=== PATIENT | male | born 1960 | race Caucasian/White ===

== ENCOUNTER 2017-01-31 10:05 | Inpatient (IN) | payer OTHER ==
[~2017-01-31] VITALS: Ht 167.6 cm; Wt 58.7 kg
[~2017-01-31 10:05] MED LIST: MAG355OR15 PO; ONDA4TAB35 PO
[2017-01-31] MEDS ORDERED: LACTATED RINGER'S 1,000 ML IV STA (10:21)
[2017-01-31] MEDS ORDERED: SOD CHLORIDE 0.9% 2,000 ML IV STA (10:21)
[2017-01-31 10:55] LABS: ADD SCAN DIFF NO
[2017-01-31] MEDS ORDERED: ONDANSETRON 4 MG INJ IV STA (11:01)
[2017-01-31] MEDS ORDERED: morphine 4 MG/ML VIAL IV STA (11:01)
[2017-01-31 11:04] LABS: ABNORMAL IP MESSAGE 1; BASOPHIL # 0.1 10^3/ul (0.0-0.1); EOSINOPHILS # 0.1 10^3/ul (0.0-0.5); EOSINOPHILS % 2.4 % (0.0-7.0); HEMATOCRIT 30.8 % (42.0-52.0); HEMOGLOBIN 9.7 g/dl (14.0-18.0); LYMPHOCYTES # 1.5 10^3/ul (0.8-2.9); LYMPHOCYTES % 29.9 % (15.0-51.0); MEAN CORPUSCULAR HEMOGLOBIN 25.4 pg (29.0-33.0); MEAN CORPUSCULAR HGB CONC 31.5 g/dl (32.0-37.0); MEAN CORPUSCULAR VOLUME 80.6 fl (82.0-101.0); MEAN PLATELET VOLUME 9.6 fl (7.4-10.4); MONOCYTE # 0.4 10^3/ul (0.3-0.9); NEUTROPHIL # 2.8 10^3/ul (1.6-7.5); NEUTROPHILS % 57.3 % (39.0-77.0); PLATELET COUNT 97 10^3/UL (140-415); RED BLOOD COUNT 3.82 10^6/ul (4.70-6.10); RED CELL DISTRIBUTION WIDTH 21.9 % (11.5-14.5); WHITE BLOOD COUNT 4.9 10^3/ul (4.8-10.8)
[2017-01-31 11:26] LABS: CALCIUM 7.8 mg/dl (8.4-10.2); CREATININE 0.59 mg/dl (0.61-1.24); INR 1.26; PROTIME 15.9 Sec (12.2-14.2); PT RATIO 1.2
[2017-01-31 11:27] LABS: PARTIAL THROMBOPLASTIN TIME 29.1 Sec (25.0-35.0)
--- NOTE | 2017-01-31 11:48 | RADRPT ---
PROCEDURE: XR Chest. CLINICAL INDICATION: Chest pain TECHNIQUE: Single portable view of the chest was obtained COMPARISON: None FINDINGS: The heart is enlarged. There is elevation of the right diaphragm. There are mild bibasilar atelectatic changes. The lungs are otherwise clear. There is no pleural effusion or pneumothorax. RPTAT: AA IMPRESSION: Mild bibasilar atelectatic changes, right greater than left. Mild cardiomegaly. .Momo Guevara MD, MD Date Time Electronically viewed and signed by .Momo Guevara MD, MD on 01/31/2017 11:47 .S/
--- NOTE | 2017-01-31 12:24 | RADRPT ---
PROCEDURE: CT scan of the abdomen and pelvis without IV contrast. CLINICAL INDICATION: 56 real male with abdominal pain. TECHNIQUE: Thin section axial, coronal and sagittal images were performed through the abdomen and pelvis without contrast. Radiation Dose: CTDI: A 0.4 and DLP: 556 One or more of the following dose reduction techniques were used: - Automated exposure control. - Adjustment of the mA and/or kV according to patient size. Use of iterative reconstruction technique. COMPARISON: Chest x-ray 09/21/2016 06:18 a.m. FINDINGS: Soft tissues: Normal. Lungs and pleural spaces: There is plate-like atelectasis in the right lower lobe and medial aspect of the left lower lobe. No pleural effusion is identified. Some peribronchial thickening is noted in the bronchial mederos in the medial aspect of the left lower lobe with consolidation/atelectasis in the same area. Heart: Heart is mildly enlarged. No pericardial effusion is identified. The liver, common bile duct and gallbladder: The liver has a nodular border. The liver measures 16. 9 cm AP. There is surrounding ascites. The gallbladder is distended measuring up to 4.6 cm AP by 4 .8 cm in height by over 10.5 cm in length. A 4.4 mm calcification is noted outside of the gallbladd er in the area of Morison's pouch. This may be the result of a calcified lymph node. Gastrointestinal: The gastric wall is thickened but the stomach is incompletely distended. There is mucosal thickening of small bowel loops in the right upper abdomen. There are air-filled small bow el loops in the anterior abdomen measuring about 2.1 mm in maximal transverse diameter. There is a r ight inguinal hernia which contains fluid and fat. There is a large right scrotal hydrocele with th ickening of the right scrotal wall. Pancreas: Normal. The extrahepatic common bile duct measures about 6.6 mm. The main pancreatic brianna t is normal. Kidneys, bladder and adrenal glands : The adrenal glands are normal. There is mild hydronephrosis o f the right kidney. Left kidney is unremarkable. No obstructing ureterolith, nephrolith or bladder stone is identified. The urinary bladder is distended without evidence of bladder wall thickening. Spleen: The spleen is enlarged measuring 15 cm AP. Lymph nodes: No enlarged periportal, mesenteric, retroperitoneal, pelvic sidewall or inguinal lymph nodes are identified. There are small inguinal lymph nodes bilaterally. The largest in the left in guinal area measured 7.6 mm. Reproductive system and pelvis : The prostate gland seminal vesicles are normal. Bony elements: There are mild degenerative changes involving both hips. There are degenerative perez ges involving the left SI joint. There are degenerative changes in the articular facets at T12-L1, L1-2, L2-3, L3-4, and L4-5. There are degenerative changes in the facets at the lumbosacral junctio n. L5 is partially sacralized. Vasculature: There are vascular calcifications at the origins of the celiac artery, superior mesente derian artery and in the mid abdominal aorta. IMPRESSION: 1. There is a large right scrotal hydrocele with scrotal wall thickening. 2. There is a left inguinal hernia with pad bulging and to the left inguinal canal. 3. Hepatosplenomegaly with cirrhosis and ascites. 4. Hydrops gallbladder. 5. Mucosal thickening of the stomach and small bowel loops may be the result of hypoalbuminemia rel ated to ascites. 6. Reflex ileus. 7. Bibasilar atelectasis. 8. Mild cardiomegaly. RPTAT:AAJJ Physician Nessa Date Time Electronically viewed and signed by Physician Nessa on 01/31/2017 12:24 LIZETH/
[2017-01-31] MEDS ORDERED: FER325 PO (12:27)
[2017-01-31] MEDS ORDERED: THIA100T56 PO (12:27)
[2017-01-31] MEDS ORDERED: LANT3I SC (12:27)
[2017-01-31] MEDS ORDERED: FOLI-49 PO (12:28)
[2017-01-31] MEDS ORDERED: OMEP20CA16 PO (12:29)
[2017-01-31] MEDS ORDERED: SPIR100T PO (12:29)
[2017-01-31] MEDS ORDERED: FURO40TA4 PO (12:29)
[2017-01-31] MEDS ORDERED: METF1000 PO (12:31)
[2017-01-31] MEDS ORDERED: CHOL100062 PO (12:32)
[2017-01-31] MEDS ORDERED: PIPER-TAZO 3.375 GM IV (PMX) 100 ML IVPB ONE (13:00)
--- NOTE | 2017-01-31 13:43 | ERA ---
ER Documentation Chief Complaint Date/Time DATE: 01/31/17 TIME: 13:42 Chief Complaint PT BIBA C/O HYPERGLYCEMIA HPI Patient is a 56-year-old male with alcohol abuse who presents with abdominal pain. The patient was brought in by ambulance. He was in line to get food at a local food half-way. His sugar was elevated at 403 by paramedics. He said he is not taking his medications. He admits to drinking alcohol. He says "I am not feeling well". He complains of pain in his lower abdomen and scrotum. Upon review of old medical records this is the patient's fourth visit to the ER since 2014. He does not currently have a primary doctor. ROS All systems reviewed and are negative except as per history of present illness. Medications Home Meds Reported Medications Cholecalciferol* (Vitamin D3*) 1,000 Unit Tablet, 2000 UNIT PO DAILY, TAB 01/31/17 Metformin Hcl* (Metformin Hcl*) 1,000 Mg Tablet, 1000 MG PO WITH BREAKFAST DINNE , #30 TAB 01/31/17 Omeprazole* (Omeprazole*) 20 Mg Capsule.dr, 20 MG PO DAILY, #30 CAP 01/31/17 Furosemide* (Furosemide*) 40 Mg Tablet, 40 MG PO DAILY, TAB 01/31/17 Spironolactone* (Aldactone*) 100 Mg Tablet, 100 MG PO DAILY, #30 TAB 01/31/17 Folic Acid* (Folic Acid*) 1 Mg Tablet, 1 MG PO DAILY, TAB 01/31/17 Ferrous Sulfate* (Ferrous Sulfate*) 325 Mg Tabec, 325 MG PO DAILY, TAB 01/31/17 Thiamine* (Vitamin B-1*) 100 Mg Tablet, 100 MG PO DAILY, TAB 01/31/17 Insulin Glargine* (Lantus*) 100 Unit/Ml Soln, 0 SC QHS, #1 VIAL SLIDING SCALE NO SCALE GIVEN 01/31/17 Discontinued Scripts Mag Hydrox/Al Hydrox/Simeth (Maalox Max Strength Susp) 769 Ml Oral.susp, 769 ML PO TID Y for PAIN, #1 Prov:MYRNA MORENO MD 01/18/15 Ondansetron Hcl* (Zofran* ODT) 4 mg -ODT Tab.disper, 4 MG PO Q6 Y for NAUSEA AND /OR VOMITING, #10 TAB Prov:MYRNA MORENO MD 01/18/15 Allergies Allergies: Coded Allergies: No Known Allergy (Unverified , 01/31/17) PMhx/Soc History of Surgery: No Anesthesia Reaction: No Hx Neurological Disorder: No Hx Respiratory Disorders: No Hx Cardiac Disorders: No Hx Psychiatric Problems: No Hx Miscellaneous Medical Probl: Yes (DM) Hx Alcohol Use: No Hx Substance Use: No Hx Tobacco Use: No Smoking Status: Never smoker FmHx Family History: diabetes Physical Exam Vitals Vital Signs Date Time Temp Pulse Resp B/P Pulse Ox O2 Delivery O2 Flow Rate FiO2 01/31/17 10:19 98 16 139/97 92 Room Air 01/31/17 10:16 97.9 105 20 139/97 98 Physical Exam Const: Moderate distress Head: Atraumatic Eyes: Normal Conjunctiva ENT: Normal External Ears, Nose and Mouth. Neck: Full range of motion..~ No meningismus. Resp: Clear to auscultation bilaterally Cardio: Regular rate and rhythm, no murmurs Abd: Distended abdomen with lower abdominal pain on palpation without rebound or guarding Skin: No petechiae or rashes Back: No midline or flank tenderness Ext: No cyanosis, or edema Neur: Awake and alert : Large hernia inguinal which extends into the scrotum, no obvious signs of incarceration at this time Result Diagram: 01/31/17 1040 01/31/17 1040 Results 24 hrs Laboratory Tests Test 01/31/17 10:30 01/31/17 10:40 01/31/17 10:45 01/31/17 12:13 Bedside Glucose 306mg/dL White Blood Count 4.910^3/ul Red Blood Count 3.8210^6/ul Hemoglobin 9.7g/dl Hematocrit 30.8% Mean Corpuscular Volume 80.6fl Mean Corpuscular Hemoglobin 25.4pg Mean Corpuscular Hemoglobin Concent 31.5g/dl Red Cell Distribution Width 21.9% Platelet Count 9710^3/UL Mean Platelet Volume 9.6fl Neutrophils % 57.3% Lymphocytes % 29.9% Monocytes % 9.0% Eosinophils % 2.4% Basophils % 1.0% Nucleated Red Blood Cells % 0.0/100WBC Neutrophils # 2.810^3/ul Lymphocytes # 1.510^3/ul Monocytes # 0.410^3/ul Eosinophils # 0.110^3/ul Basophils # 0.110^3/ul Nucleated Red Blood Cells # 0.010^3/ul Prothrombin Time 15.9Sec Prothrombin Time Ratio 1.2 INR International Normalized Ratio 1.26 Activated Partial Thromboplast Time 29.1Sec Sodium Level 140mmol/L Potassium Level 4.0mmol/L Chloride Level 104mmol/L Carbon Dioxide Level 25mmol/L Anion Gap 15 Blood Urea Nitrogen 6mg/dl Creatinine 0.59mg/dl Glucose Level 310mg/dl Calcium Level 7.8mg/dl Troponin I < 0.012ng/ml Ethyl Alcohol Level 427.0mg/dl Lactic Acid Level 3.7mmol/L 4.6mmol/L Current Medications Medications (Trade) Dose Ordered Sig/Macho Route PRN Reason Start Time Stop Time Status Last Admin Dose Admin Sodium Chloride 2,000 ml @ 1,000 mls/hr Q2H STAT IV 01/31/17 10:21 01/31/17 12:20 DC 01/31/17 11:19 Lactated Ringer's (Lr) 1,000 ml @ 1,000 mls/hr Q1H STAT IV 01/31/17 10:21 01/31/17 11:20 DC 01/31/17 11:20 Morphine Sulfate (morphine) 4 mg ONCE STAT IV 01/31/17 11:01 01/31/17 11:06 DC 01/31/17 11:18 Ondansetron HCl 4 mg 4 mg ONCE STAT IV 01/31/17 11:01 01/31/17 11:06 DC 01/31/17 11:18 Piperacillin Sod/ Tazobactam Sod (Zosyn 3.375gm/ 100 ml (Pmx)) 100 ml @ 200 mls/hr ONCE ONCE IVPB 01/31/17 13:00 01/31/17 13:29 DC Ondansetron HCl (Zofran Inj) 4 mg BRIDGE ORDER PRN IV NAUSEA AND/OR VOMITING 01/31/17 14:00 02/01/17 13:59 Acetaminophen (Tylenol Tab) 650 mg ER BRIDGE PRN PO MILD PAIN/FEVER 01/31/17 14:00 02/01/17 13:59 Procedures/MDM PROCEDURE: CT scan of the abdomen and pelvis without IV contrast. CLINICAL INDICATION: 56 real male with abdominal pain. TECHNIQUE: Thin section axial, coronal and sagittal images were performed through the abdomen and pelvis without contrast. Radiation Dose: CTDI: A 0.4 and DLP: 556 One or more of the following dose reduction techniques were used: - Automated exposure control. - Adjustment of the mA and/or kV according to patient size. Use of iterative reconstruction technique. COMPARISON: Chest x-ray 09/21/2016 06:18 a.m. FINDINGS: Soft tissues: Normal. Lungs and pleural spaces: There is plate-like atelectasis in the right lower lobe and medial aspect of the left lower lobe. No pleural effusion is identified. Some peribronchial thickening is noted in the bronchial mederos in the medial aspect of the left lower lobe with consolidation/atelectasis in the same area. Heart: Heart is mildly enlarged. No pericardial effusion is identified. The liver, common bile duct and gallbladder: The liver has a nodular border. The liver measures 16.9 cm AP. There is surrounding ascites. The gallbladder is distended measuring up to 4.6 cm AP by 4.8 cm in height by over 10.5 cm in length. A 4.4 mm calcification is noted outside of the gallbladder in the area of Morison's pouch. This may be the result of a calcified lymph node. Gastrointestinal: The gastric wall is thickened but the stomach is incompletely distended. There is mucosal thickening of small bowel loops in the right upper abdomen. There are air-filled small bowel loops in the anterior abdomen measuring about 2.1 mm in maximal transverse diameter. There is a right inguinal hernia which contains fluid and fat. There is a large right scrotal hydrocele with thickening of the right scrotal wall. Pancreas: Normal. The extrahepatic common bile duct measures about 6.6 mm. The main pancreatic duct is normal. Kidneys, bladder and adrenal glands : The adrenal glands are normal. There is mild hydronephrosis of the right kidney. Left kidney is unremarkable. No obstructing ureterolith, nephrolith or bladder stone is identified. The urinary bladder is distended without evidence of bladder wall thickening. Spleen: The spleen is enlarged measuring 15 cm AP. Lymph nodes: No enlarged periportal, mesenteric, retroperitoneal, pelvic sidewall or inguinal lymph nodes are identified. There are small inguinal lymph nodes bilaterally. The largest in the left inguinal area measured 7.6 mm. Reproductive system and pelvis : The prostate gland seminal vesicles are normal. Bony elements: There are mild degenerative changes involving both hips. There are degenerative changes involving the left SI joint. There are degenerative changes in the articular facets at T12-L1, L1-2, L2-3, L3-4, and L4-5. There are degenerative changes in the facets at the lumbosacral junction. L5 is partially sacralized. Vasculature: There are vascular calcifications at the origins of the celiac artery, superior mesenteric artery and in the mid abdominal aorta. IMPRESSION: 1. There is a large right scrotal hydrocele with scrotal wall thickening. 2. There is a left inguinal hernia with pad bulging and to the left inguinal canal. 3. Hepatosplenomegaly with cirrhosis and ascites. 4. Hydrops gallbladder. 5. Mucosal thickening of the stomach and small bowel loops may be the result of hypoalbuminemia related to ascites. 6. Reflex ileus. 7. Bibasilar atelectasis. 8. Mild cardiomegaly. RPTAT:AAJJ Physician Nessa Date Time Electronically viewed and signed by Robb Lord Physician on 01/31/2017 12:24 PROCEDURE: XR Chest. CLINICAL INDICATION: Chest pain TECHNIQUE: Single portable view of the chest was obtained COMPARISON: None FINDINGS: The heart is enlarged. There is elevation of the right diaphragm. There are mild bibasilar atelectatic changes. The lungs are otherwise clear. There is no pleural effusion or pneumothorax. RPTAT: AA IMPRESSION: Mild bibasilar atelectatic changes, right greater than left. Mild cardiomegaly. .Momo Guevara MD, Date Time Electronically viewed and signed by .Momo Guevara MD, MD on 01/31/2017 11: 47 Admit MDM: Patient's infectious symptoms have not stabilized and the patient is at risk of rapid decompensation. The patient will be admitted for careful hydration, antibiotic therapy, and infectious source control. Severe Sepsis criteria: Infectious source: Possible UTI, urine not obtained as of yet End organ damage indicated by: Lactate greater than 2 Sepsis Management: Time of recognition of sepsis: Upon arrival Within 3 hours of recognition: Blood cultures x 2 before broad-spectrum antibiotics: Yes 30 ml/kg NS bolus Completed Initial lactate 3.7 Repeat lactate 4.6 Time of recognition of septic shock: 1213 Septic Shock Assessment: Any lactic acid > 4.0 yes Persistent hypotension (SBP < 90 or 40 mmHg drop, MAP < 65) despite 30 mL/kg IV fluid bolus No Volume Re-assessment for Septic Shock (post 30 ml/kg bolus): Temp 97.9, BP 139/97, HR 98, RR 16, Pox 92% Heart Regular rate & rhythm Lungs No crackles Skin Warm & dry Cap Refill Less than 2 seconds Peripheral pulses Radially present Persistent Hypotension Treatment: Comfort care No Central line Not Required Vasopressor started Not required I considered further perfusion assessment with CVP measurement, SCVO2, bedside ultrasound volume assessment, passive leg raise, trial of further fluid bolus. And proceeded with 30 ml/kg fluid bolus of NSS, broad spectrum antibiotics, and admission. The patient also has hyperglycemia but no diabetic ketoacidosis at this time. He has alcohol intoxication. He has anemia with a hemoglobin of 9.7 but does not require transfusion. Accepting Care Team Current data and ongoing care discussed. Admitting Physician: Dr. Guzmán from the panel team Insulation Machine Operator(s): Dr. Wadsworth the surgeon on-call Outstanding Data: Culture results Critical Care: Critical care time 35 minutes excluding all billable procedures Emergent fluid management while maintaining close respiratory support. Provision of immediate and broad-spectrum antibiotic therapy. Simultaneous assessment for possible sources in order to direct targeted therapy. Consideration for invasive and chemical support to prevent cardiopulmonary collapse. Departure Diagnosis: Primary Impression: Inguinal hernia Qualified Code: K40.90 - Inguinal hernia without obstruction or gangrene, recurrence not specified, unspecified laterality Additional Impressions: Alcoholic intoxication Qualified Code: F10.120 - Alcoholic intoxication, uncomplicated Septic shock Hyperglycemia Condition: TAYA Mayers MD Jan 31, 2017 13:43
[2017-01-31] MEDS ORDERED: ACETAMINOPHEN 325 MG TAB PO PRN ×2 (14:00→18:30)
[2017-01-31] MEDS ORDERED: ONDANSETRON 4 MG INJ IV PRN (14:00)
[2017-01-31 14:43] LABS: ADD UMIC YES; UR BILIRUBIN (Dip) NEGATIVE (NEGATIVE); UR BLOOD (Dip) 2+ (NEGATIVE); UR CLARITY CLEAR (CLEAR); UR COLOR LT. YELLOW (YELLOW); UR KETONES (Dip) NEGATIVE (NEGATIVE); UR LEUKOCYTE ESTERASE (Dip) NEGATIVE (NEGATIVE); UR NITRITE (Dip) NEGATIVE (NEGATIVE); UR TOTAL PROTEIN (Dip) NEGATIVE (NEGATIVE); UR UROBILINOGEN (Dip) 1.0 E.U./dL (0.1-1.0)
[2017-01-31 15:27] LABS: UR TRANSITIONAL EPI CELL FEW
[2017-01-31 17:09] VITALS: BP 142/91; RESP 22
[2017-01-31 17:15] VITALS: BP 142/91; PULSE 90; RESP 18
--- NOTE | 2017-01-31 17:38 | CONS ---
[facility]: Initial inpatient consultation DATE OF CONSULTATION: 01/31/2017 PLACE OF SERVICE: [facility] Emergency Department. ASSESSMENT AND PLAN: A very pleasant but unfortunate 56-year-old gentleman with known alcoholic cirrhosis complicated by ascites as well as 1 episode of upper gastrointestinal bleed last year. He is presenting with more issues with ascites and left inguinal hernia and scrotal hydrocele that do not contain any bowel content within them and they are essentially filled with his ascites. There is no indication for surgical intervention. He does have portal hypertension and in combination with cirrhosis and other comorbidities puts him at an extremely high risk for morbidity and mortality for any operative intervention and fortunately he does not represent any need for operative intervention at this time. I have recommended that we stabilize the patient and then get the patient connected to one of our outpatient hepatologists to try and help him manage his medical needs better in regards to his cirrhosis. I explained all this in detail with the patient as well as discussing with the team. I answered all the patient's questions to the best of my ability and he appeared to understand and agreed with the plans. With above assessment I have recommended the followin. Consider admitting the patient. 2. Medical management of alcohol related cirrhosis. 3. Consider checking for hepatitis panel. 4. Elevate scrotum. 5. Consider diuretics. 6. Consider paracentesis. 7. Please call me if any other acute surgical questions or issues. Thank you again for allowing us to participate in the care of this very pleasant gentleman and I am certain his wonderful family. If there are any questions, please feel free to contact me at [phone]. UPDATED CLINICAL SUMMARY: A very pleasant 56-year-old gentleman with known history of cirrhosis and 1 episode of gastrointestinal bleeding presenting to the emergency department at [facility] on 01/31/2017 with an enlarged groin and scrotum. COMORBIDITIES: 1. Alcoholic cirrhosis complicated by ascites and at least 1 episode of upper gastrointestinal bleeding. 2. Possible diabetes. 3. Right scrotal hydrocele with scrotal wall thickening. 4. Left inguinal hernia. 5. Hepatomegaly with cirrhosis. 6. Mild cardiomegaly. DATE OF ADMISSION: 01/31/2017 HISTORY OF PRESENT ILLNESS: The patient is a very pleasant 56-year-old gentleman whom we were kindly asked to consult regarding management of possible groin hernias. Patient reported having no major abdominal pain and he had a bowel movement today as well as flatus. He does report significant drinking and has a known problem with cirrhosis complicated by ascites as well as 1 episode of gastrointestinal bleeding that required upper endoscopy, perhaps done at [facility] about a year ago. No other issues with bleeding in the past. The patient's groin has been swollen for a number of days and he does not report any major complaints. ALLERGIES: NO KNOWN DRUG ALLERGIES. HOME MEDICATIONS: 1. Vitamin D3. 2. Ferrous sulfate. 3. Folic acid. 4. Furosemide. 5. Lantus. 6. Metformin. 7. Omeprazole. 8. Bactrim 9. Vitamin B1. SOCIAL HISTORY: The patient lives in a mcc. He reports significant amount of drinking. No major reported smoking or intravenous drug use. FAMILY HISTORY: There is no mention of major medical, surgical or oncologic problems in the family. REVIEW OF SYSTEMS: Other than the above-mentioned, there are no other pertinent positives or pertinent negatives in a complete 14-point review of systems. PHYSICAL EXAMINATION: GENERAL: The patient appears to be a very pleasant gentleman of descent, appearing stated age, lying in bed comfortably and in no acute distress. His BMI is 24.2. VITAL SIGNS: Temperature is 97.9, blood pressure 133/90, pulse 90, respiratory rate 18, pulse oximetry 92% on room air. HEENT: Normocephalic and atraumatic. Extraocular muscles and hearing are grossly intact bilaterally and symmetrically. Sclerae are nonicteric. Oral cavity is clear; oral mucosa appeared to be pink and moist. Dentition: fair to poor. NECK: Supple. There is no lymphadenopathy or JVD. There is no submental, submandibular or supraclavicular lymphadenopathy. CHEST: Rises symmetrically with each breath; patient is breathing comfortably. There are no audible wheezes, rales or rhonchi on the gross exam. HEART: Pulse is regular and palpable on the right wrist. Capillary refill was normal. Carotid pulses are palpable bilaterally and symmetrically in the neck. EXTREMITIES: Lower extremities contain no pitting edema around the ankles bilaterally and symmetrically. ABDOMEN: Soft, nondistended and nontender. There are no peritoneal signs or guarding. His groin shows a scrotum that this is extremely enlarged all filled with fluid. There is no evidence of bowel incarceration within it. The skin itself overlying the scrotum appears to be pink and viable. There is no significant tenderness in the area. SKIN: Appears to be pink and feels warm to touch. NEUROLOGIC: Awake, alert, and follows commands appropriately. LABORATORY VALUES: White blood cell count 4.9, hemoglobin 9.7, platelets 97. Electrolytes are normal. Creatinine 0.59, CO2 of 25. Lactic acid was 3.7, then 4.6 and then 3.9. INR 1.26, ethyl alcohol level was 427. Urinalysis showed no nitrite or leukocyte esterase. IMAGING: The patient had a chest x-ray that demonstrated mild bibasilar atelectatic changes right greater than left and mild cardiomegaly. The abdominal and pelvic CT scan findings were reviewed above. Note that I personally reviewed all the available and pertinent images and I agree in general with their overall reported findings. Dictated By: KIRA CONRAD/HUY Conf#: [id number] DID#: [id number] MTDD
--- NOTE | 2017-01-31 18:03 | HP ---
Date/Time of Note Date/Time of Note DATE: 01/31/17 TIME: 17:59 Assessment/Plan VTE Prophylaxis VTE Prophylaxis Intervention: SCD's Assessment/Plan Assessment/Plan 56 yo M with alcoholism DM2 admitted for abd pain in setting of hyperglycemia and alcohol intoxication. CT abdomen notable for ascities. Suspect alcoholic gastropathy as etio of abd pain though other possibilities (ie PUD) exist #lactic acidosis; Suspect combo of alcohol and mild DKA no evidence of sepsis-->UA negative, CXR without evidence of pna hold abx cont fluids #abd pain: gen surg on consult cont PPI consider GI eval in AM #RON: suspect prerenal -hydrate, hold dieretics #dm2 with hyperglycemia -IVFs, A1c, lantus, SSI #alcoholism: ativan PRN prophx: SCDs HPI/ROS Admit Date/Time Admit Date/Time Jan 31, 2017 at 13:39 Hx of Present Illness 56 yo M with pmhx DM2, EtOH abuse, HTN, likely chronic liver disease presents with 1 day of abd pain. States it's in his bl LQs and has been occurring intermittently for some time. Pain is quite severe. Hasn't taken his insulin in 2 days (is on 15 units of lantus usually). Also fo note, pt's last drink was this AM-->2 beers and some additional alcohol. No fevers, chills, nausea, vomiting, constipation or diarrhea. ROS 10pROS neg as per HPI PMH/Family/Social Past Medical History DM2, alcoholism, htn Social History lives in the community, +etoh abuse Smoking Status: Never smoker Exam/Review of Systems Vital Signs Vitals Vital Signs Date Time Temp Pulse Resp B/P Pulse Ox O2 Delivery O2 Flow Rate FiO2 01/31/17 17:09 97.4 90 22 142/91 90 01/31/17 16:13 Room Air Exam Exam nad MMM EOMI breath smells strongly of alcohol rrr no mrg lungs clear abd with minimal ttp in bl LQs no rashes responds to questions appropriately Labs Result Diagram: 01/31/17 1040 01/31/17 1040 Medications Medications Current Medications Cholecalciferol (Vitamin D) 2,000 unit DAILY PO ; Start 02/01/17 at 09:00 Ferrous Sulfate (Ferrous Sulfate (Ec)) 325 mg DAILY PO ; Start 02/01/17 at 09:00 Folic Acid (Folic Acid) 1 mg DAILY PO ; Start 02/01/17 at 09:00 Thiamine HCl (Vitamin B1) 100 mg DAILY PO ; Start 02/01/17 at 09:00 Pantoprazole (Protonix Tab) 40 mg DAILY@06 PO ; Start 02/01/17 at 06:00 Procedures Procedures labs and CT reviewed. Pt with markedly elevated EtOH level, ascites CAITLIN THAPA MD Jan 31, 2017 18:03
[2017-01-31] MEDS ORDERED: DOCUSATE SODIUM 100 MG CAP PO PRN (18:30)
[2017-01-31] MEDS ORDERED: NACL 0.9% 3 ML SYG IV SCH (18:30)
[2017-01-31] MEDS ORDERED: GLUCOSE GEL 15 GRAM TUBE PO PRN ×2 (18:30)
[2017-01-31] MEDS ORDERED: GLUCAGON 1 MG INJ IM PRN (18:30)
[2017-01-31] MEDS ORDERED: DEXTROSE 50% 50 ML SYRINGE IV PRN ×2 (18:30)
[2017-01-31] MEDS ORDERED: ONDANSETRON 4 MG TAB PO PRN (18:30)
[2017-01-31] MEDS ORDERED: GLUCOSE GEL 15 GRAM TUBE BUCCAL PRN (18:30)
[2017-01-31] MEDS ORDERED: LORAZEPAM 1 MG TAB PO PRN (18:30)
[2017-01-31 18:45] VITALS: Ht 167.6 cm; Wt 58.7 kg
[2017-01-31] MEDS: INSULIN GLARGINE [LANtus] 3 ML PEN SC SCH (20:55)
[2017-01-31] MEDS: INSULIN ASPART [NOVOLOG] 3 ML PEN SC SCH (20:55)
[2017-01-31 20:58] VITALS: BP 141/81; RESP 18
[2017-02-01] MEDS: ACCU-CHEK XX SCH (01:50)
[2017-02-01] MEDS: PANTOPRAZOLE (EC) 40 MG TAB PO SCH (05:49)
[2017-02-01] MEDS ORDERED: LORAZEPAM 2 MG INJ IV PRN (06:00)
[2017-02-01 06:16] LABS: ADD SCAN DIFF NO
[2017-02-01 07:04] LABS: ALBUMIN/GLOBULIN RATIO 0.81; BILIRUBIN,INDIRECT 1.4 mg/dl (0-1.1); BILIRUBIN,TOTAL 1.4 mg/dl (0.2-1.3); CALCIUM 7.8 mg/dl (8.4-10.2); CREATININE 0.53 mg/dl (0.61-1.24); POTASSIUM 3.4 mmol/L (3.5-5.1); TOTAL PROTEIN 6.7 g/dl (6.1-8.1)
[2017-02-01 07:08] LABS: ABNORMAL IP MESSAGE 1; HEMATOCRIT 27.9 % (42.0-52.0); MEAN CORPUSCULAR HEMOGLOBIN 26.2 pg (29.0-33.0); MEAN CORPUSCULAR HGB CONC 32.3 g/dl (32.0-37.0); MEAN CORPUSCULAR VOLUME 81.1 fl (82.0-101.0); MEAN PLATELET VOLUME 10.2 fl (7.4-10.4); PLATELET COUNT 76 10^3/UL (140-415); RED BLOOD COUNT 3.44 10^6/ul (4.70-6.10); RED CELL DISTRIBUTION WIDTH 21.5 % (11.5-14.5); WHITE BLOOD COUNT 4.1 10^3/ul (4.8-10.8)
[2017-02-01] MEDS ORDERED: VANCOMYCIN 1 GM (PMX) 250 ML IVPB SCH (07:30)
[2017-02-01 07:53] LABS: ANISOCYTOSIS 1+; LYMPHOCYTES # 0.4 10^3/ul (0.8-2.9); MONOCYTE # 0.3 10^3/ul (0.3-0.9); NEUTROPHIL # 3.4 10^3/ul (1.6-7.5)
[2017-02-01] MEDS: INSULIN ASPART [NOVOLOG] 3 ML PEN SC SCH ×4 (08:11→21:00)
[2017-02-01 08:19] VITALS: BP 116/77; RESP 20
[2017-02-01] MEDS: MULTIVITAMINS 10 ML, THIAMINE 100 MG, FOLIC ACID 1 MG in SOD CHLORIDE 0.9% 1,000 ML IVPB SCH ×2 (09:00→12:01)
[2017-02-01] MEDS: CHLORDIAZEPOXIDE 25 MG CAP PO SCH ×3 (09:16→21:02)
[2017-02-01] MEDS: THIAMINE 100 MG TAB PO SCH (09:16)
[2017-02-01] MEDS: CHOLECALCIFEROL 1,000 UNIT TAB PO SCH (09:16)
[2017-02-01] MEDS: FERROUS SULFATE (EC) 325 MG TAB PO SCH (09:16)
[2017-02-01] MEDS: ENOXAPARIN 40 MG/0.4 ML SYG SC SCH (09:22)
[2017-02-01] MEDS: FOLIC ACID 1 MG TAB PO SCH (09:24)
[2017-02-01] MEDS ORDERED: POTASSIUM CHLORIDE (SR) 20 MEQ TAB PO STA (12:22)
[2017-02-01] MEDS ORDERED: LIDOCAINE 1% (MPF) 5 ML VIAL ONE (14:21)
--- NOTE | 2017-02-01 14:53 | RADRPT ---
PROCEDURE: Ultrasound guided paracentesis. CLINICAL INDICATION: Ascites and shortness of breath. COMPARISON: CT scan of the abdomen and pelvis dated 01/31/2017. TECHNIQUE: The risks, benefits, and alternatives were explained to the patient and/or the patient's family, inc luding but not limited to bleeding, infection, pain, visceral or vascular damage, shock, and . The patient and/or the patient's family understood the risks and the alternatives and wished to pro ceed with the procedure. Informed written consent was obtained. A procedural time out was performed . The patient's name, date of , and procedure to be performed were verified. Utilizing ultrasound guidance, optimal location for entry to the peritoneal cavity was ascertained. The overlying skin was prepped and draped in the usual sterile fashion. Approximately 10 ml of 1% Xylocaine was injected locally for pain control. Using ultrasound guidance, an 8 Filipino catheter wa s introduced into the peritoneal cavity in the right lower quadrant without difficulty. FINDINGS: Initial images demonstrate ascites. Approximately 3.5 liters of serous fluid was aspirated and sent for laboratory analysis. The patient tolerated the procedure well without complication. IMPRESSION: 1. Successful ultrasound-guided paracentesis. RPTAT: QQ .Reji Ramirez MD, MD Date Time Electronically viewed and signed by .Reji Ramirez MD, on 02/01/2017 14:53 .R/
[2017-02-01 15:46] VITALS: BP 129/79; PULSE 80; RESP 18
[2017-02-01] MEDS: HYDROCODONE/APAP (5/325) TAB PO PRN (17:34)
--- NOTE | 2017-02-01 18:32 | PN ---
Date/Time of Note Date/Time of Note DATE: 02/01/17 TIME: 18:29 Assessment/Plan VTE Prophylaxis VTE Prophylaxis Intervention: SCD's Lines/Catheters IV [facility]ter Type (from [facility]): Saline Lock Urinary Cath still in place: No Assessment/Plan Assessment/Plan #lactic acidosis; Suspect combo of alcohol and mild DKA no evidence of sepsis-->UA negative, CXR without evidence of pna hold abx cont fluids #abd pain: improving #RON 2/2 prerenal azotemia, diuretics on hold #dm2 with hyperglycemia HBA1c 11.6- on lantus and sliding scale #alcoholism: ativan PRN , on IV banana bag dailiy # alcoholic cirrhosis with ascites s/p paracentesis 3.4 L removed prophx: SCDs Subjective 24 Hr Interval Summary Free Text/Dictation afebrile, BP stable off diuretics, S/p paracentesis today Exam/Review of Systems Vital Signs Vitals Vital Signs Date Time Temp Pulse Resp B/P Pulse Ox O2 Delivery O2 Flow Rate FiO2 02/01/17 15:46 99.0 80 18 129/79 95 Room Air 01/31/17 20:00 2.0 Intake and Output 01/31/17 01/31/17 02/01/17 15:00 23:00 07:00 Intake Total 880 ml Output Total 1000 ml 200 ml Balance -1000 ml 680 ml Exam Constitutional: alert Psych: no complaints Head: normocephalic Neck: supple Respiratory: clear to auscultation, diminished breath sounds Cardiovascular: nl pulses, regular rate and rhythm Gastrointestinal: ascites, non-tender, soft Musculoskeletal: nl extremities to inspection Neurological: VETERINARY MANAGER II-XII intact, nl mental status, nl speech Results Result Diagram: 02/01/17 0509 02/01/17 0509 Results 24 hrs Laboratory Tests Test 01/31/17 20:51 02/01/17 01:49 02/01/17 05:09 02/01/17 08:10 Bedside Glucose 185 104 82 White Blood Count 4.1 L Red Blood Count 3.44 L Hemoglobin 9.0 L Hematocrit 27.9 L Mean Corpuscular Volume 81.1 L Mean Corpuscular Hemoglobin 26.2 L Mean Corpuscular Hemoglobin Concent 32.3 Red Cell Distribution Width 21.5 H Platelet Count 76 #L Mean Platelet Volume 10.2 Neutrophils % 82.0 H Lymphocytes % 10.0 L Monocytes % 7.0 Basophils % 1.0 Neutrophils # 3.4 Lymphocytes # 0.4 L Monocytes # 0.3 Basophils # 0.0 Anisocytosis 1+ Sodium Level 146 H Potassium Level 3.4 L Chloride Level 110 Carbon Dioxide Level 24 Anion Gap 15 Blood Urea Nitrogen 6 L Creatinine 0.53 L Glucose Level 110 # Hemoglobin A1c 11.3 H Calcium Level 7.8 L Total Bilirubin 1.4 H Direct Bilirubin 0.00 Indirect Bilirubin 1.4 H Aspartate Amino Transf (AST/SGOT) 94 H Alanine Aminotransferase (ALT/SGPT) 62 Alkaline Phosphatase 319 H Total Protein 6.7 Albumin 3.0 L Globulin 3.70 H Albumin/Globulin Ratio 0.81 Test 02/01/17 12:23 02/01/17 17:25 Bedside Glucose 139 117 Medications Medications Current Medications Cholecalciferol (Vitamin D) 2,000 unit DAILY PO Last administered on 02/01/17 09:16; Admin Dose 2,000 UNIT; Start 02/01/17 at 09:00 Ferrous Sulfate (Ferrous Sulfate (Ec)) 325 mg DAILY PO Last administered on 09:16; Admin Dose 325 MG; Start 02/01/17 at 09:00 Folic Acid (Folic Acid) 1 mg DAILY PO Last administered on 02/01/17 09:24; Admin Dose 1 MG; Start 02/01/17 at 09:00 Thiamine HCl (Vitamin B1) 100 mg DAILY PO Last administered on 02/01/17 09:16 ; Admin Dose 100 MG; Start 02/01/17 at 09:00 Pantoprazole (Protonix Tab) 40 mg DAILY@06 PO Last administered on 02/01/17 05 :49; Admin Dose 40 MG; Start 02/01/17 at 06:00 Ondansetron HCl (Zofran Tab) 4 mg Q6H PRN PO NAUSEA AND/OR VOMITING; Start at 18:30 Acetaminophen (Tylenol Tab) 650 mg Q6H PRN PO PAIN LEVEL 1-3 OR FEVER; Start at 18:30 Acetaminophen/ Hydrocodone Bitart ([place] (5/325)) 1 tab Q6H PRN PO MODERATE PAIN LEVEL 4-6 Last administered on 02/01/17 17:34; Admin Dose 1 TAB; Start at 18:30 Docusate Sodium (Colace) 100 mg Q12H PRN PO CONSTIPATION; Start 01/31/17 at 18: 30 Enoxaparin Sodium (Lovenox) 40 mg DAILY SC Last administered on 02/01/17 09:22 ; Admin Dose 40 MG; Start 02/01/17 at 09:00 Insulin Glargine (Lantus) 15 unit QHS SC Last administered on 01/31/17 20:55; Admin Dose 15 UNIT; Start 01/31/17 at 21:00 Diagnostic Test (Pha) (Accu-Chek) 1 ea 02 XX Last administered on 02/01/17 01: 50; Admin Dose 1 EA; Start 02/01/17 at 02:00 Lorazepam (Ativan) 1 mg Q6H PRN PO CONTROL WITHDRAWAL SYMPTOMS; Start 01/31/17 at 18:30 Miscellaneous Information 1 ea NOTE XX ; Start 01/31/17 at 18:30 Glucose (Glutose) 15 gm Q15M PRN PO DECREASED GLUCOSE; Start 01/31/17 at 18:30 Glucose (Glutose) 22.5 gm Q15M PRN PO DECREASED GLUCOSE; Start 01/31/17 at 18: 30 Dextrose (D50w Syringe) 25 ml Q15M PRN IV DECREASED GLUCOSE; Start 01/31/17 at 18:30 Dextrose (D50w Syringe) 50 ml Q15M PRN IV DECREASED GLUCOSE; Start 01/31/17 at 18:30 Glucagon (Glucagen) 1 mg Q15M PRN IM DECREASED GLUCOSE; Start 01/31/17 at 18:30 Glucose (Glutose) 15 gm Q15M PRN BUCCAL DECREASED GLUCOSE; Start 01/31/17 at 18 :30 Chlordiazepoxide (Librium) 50 mg TID PO Last administered on 02/01/17 13:27; Admin Dose 50 MG; Start 02/01/17 at 09:00; Stop 02/02/17 at 09:00 Lorazepam 2 mg 2 mg Q6H PRN IV Agitation Last administered on 02/01/17 06:25; Admin Dose 2 MG; Start 02/01/17 at 06:00 Multivitamins/ Thiamine HCl/ Folic Acid/Sodium Chloride (Mvi Adult/ Vitamin B1/ Folic Acid/NS) 1,011.2 ml @ 125 mls/ hr DAILY@09 IVPB Last administered on t 12:01; Admin Dose 125 MLS/HR; Start 02/01/17 at 09:00 JENI PATRICIA MD Feb 01, 2017 18:32
[2017-02-01 19:56] VITALS: BP 136/82; RESP 20
[2017-02-01 20:22] LABS: FLUID APPEARANCE CLEAR; FLUID TYPE ASCITES
[2017-02-01 20:23] LABS: FLUID LYMPHOCYTES 86 %; FLUID MONOCYTES 11 %; FLUID NEUTROPHILS 3 %; FLUID RBC EST 1+; FLUID WBC'S 37 /cmm
[2017-02-01] MEDS: INSULIN GLARGINE [LANtus] 3 ML PEN SC SCH (20:57)
[2017-02-02] MEDS: ACCU-CHEK XX SCH (02:00)
[2017-02-02] MEDS: PANTOPRAZOLE (EC) 40 MG TAB PO SCH (06:07)
[2017-02-02 06:11] LABS: ADD SCAN DIFF NO
[2017-02-02 06:13] LABS: ABNORMAL IP MESSAGE 1; BASOPHILS % 0.6 % (0.0-2.0); EOSINOPHILS # 0.1 10^3/ul (0.0-0.5); EOSINOPHILS % 2.9 % (0.0-7.0); HEMATOCRIT 29.1 % (42.0-52.0); HEMOGLOBIN 9.1 g/dl (14.0-18.0); LYMPHOCYTES % 31.7 % (15.0-51.0); MEAN CORPUSCULAR HEMOGLOBIN 25.8 pg (29.0-33.0); MEAN CORPUSCULAR HGB CONC 31.3 g/dl (32.0-37.0); MEAN CORPUSCULAR VOLUME 82.4 fl (82.0-101.0); MEAN PLATELET VOLUME 10.5 fl (7.4-10.4); MONOCYTE # 0.3 10^3/ul (0.3-0.9); MONOCYTES % 8.4 % (0.0-11.0); NEUTROPHIL # 1.7 10^3/ul (1.6-7.5); NEUTROPHILS % 56.1 % (39.0-77.0); NUCLEATED RED BLOOD CELLS% 0.6 /100WBC (0.0-0.0); PLATELET COUNT 56 10^3/UL (140-415); RED BLOOD COUNT 3.53 10^6/ul (4.70-6.10); RED CELL DISTRIBUTION WIDTH 21.7 % (11.5-14.5); WHITE BLOOD COUNT 3.1 10^3/ul (4.8-10.8)
[2017-02-02 06:28] LABS: INR 1.38; PT RATIO 1.3
[2017-02-02 06:29] LABS: PARTIAL THROMBOPLASTIN TIME 29.6 Sec (25.0-35.0)
[2017-02-02 07:04] LABS: CALCIUM 7.8 mg/dl (8.4-10.2); CREATININE 0.56 mg/dl (0.61-1.24); POTASSIUM 3.8 mmol/L (3.5-5.1)
[2017-02-02 08:10] VITALS: BP 137/83; RESP 18
[2017-02-02] MEDS: INSULIN ASPART [NOVOLOG] 3 ML PEN SC SCH ×4 (08:15→21:49)
[2017-02-02] MEDS ORDERED: CHLORDIAZEPOXIDE 25 MG CAP PO SCH (09:00)
[2017-02-02] MEDS: FOLIC ACID 1 MG TAB PO SCH (10:29)
[2017-02-02] MEDS: CHOLECALCIFEROL 1,000 UNIT TAB PO SCH (10:29)
[2017-02-02] MEDS: THIAMINE 100 MG TAB PO SCH (10:29)
[2017-02-02] MEDS: FERROUS SULFATE (EC) 325 MG TAB PO SCH (10:29)
[2017-02-02] MEDS: MULTIVITAMINS 10 ML, THIAMINE 100 MG, FOLIC ACID 1 MG in SOD CHLORIDE 0.9% 1,000 ML IVPB SCH (10:31)
[2017-02-02] MEDS ORDERED: VANCOMYCIN IV PER PHARMACY XX SCH (11:00)
[2017-02-02] MEDS: ENOXAPARIN 40 MG/0.4 ML SYG SC SCH (11:24)
[2017-02-02 11:26] LABS: IRON 99 ug/dl (35-150)
[2017-02-02 11:27] LABS: CHOL/HDL RATIO 4.2 RATIO
[2017-02-02 11:35] LABS: TOTAL IRON BINDING CAPACITY 255 ug/dl (241-421)
[2017-02-02 12:02] LABS: FERRITIN 24.5 ng/ml (11.1-264.0)
--- NOTE | 2017-02-02 12:29 | PN ---
DATE: 02/02/2017 TIME OF EVALUATION: 11:30 a.m. SUBJECTIVE DATA: Complains of right inguinal area pain. OBJECTIVE DATA: VITAL SIGNS: Temperature 99.0, pulse rate 85, respiratory rate 18, blood pressure 137/83, oxygen saturation 94% on room air. GENERAL: Adequately built male patient lying in bed in no apparent distress. HEENT: Head normocephalic and atraumatic. Eyes: Anicteric sclerae. Conjunctivae clear. ENT: Nasal septum is midline. Oral mucosa is dry. NECK: Supple. No JVD noticed. RESPIRATORY: Bilaterally diminished breath sounds. No adventitious breath sounds. No use of accessory muscles of respiration. CARDIAC: Regular rate and rhythm. S1, S2. ABDOMEN: Ascites. Right lower quadrant tenderness upon palpation. GENITOURINARY: Right scrotal swelling. EXTREMITIES: No cyanosis, no clubbing, no edema. Peripheral pulses palpable. NEUROLOGIC: The patient is awake, alert and oriented. Cranial nerves are grossly intact. LABORATORY AND DIAGNOSTIC DATA: WBC 3.1, hemoglobin 9.1, hematocrit 29.1, platelet count 56. Sodium 138, potassium 3.8, chloride 107, carbon dioxide 25 , anion gap 10, BUN 10, creatinine 0.50, glucose 84, calcium 7.8, magnesium 1.5. ASSESSMENT AND PLAN: 1. Sepsis with underlying gram-positive bacteremia. Source of infection is unclear. We will continue antibiotics. We involve infectious disease on the case. No evidence of septic shock. 2. Alcohol intoxication. The patient currently on a tapering dose of Librium. The patient also on a daily banana bag. 3. Alcoholic liver disease with underlying ascites. Status post paracentesis on 02/01/2017 with a drainage of 3.5 liters of serous fluid. 4. Right scrotal hydrocele with scrotal wall thickening. Was seen and evaluated by general surgery. No acute surgical intervention necessary. Elevate the scrotum. 5. Left inguinal hernia. No need for any acute surgical intervention. 6. Type 2 diabetes mellitus. Hemoglobin A1c 11.3. Continue sliding scale insulin. Blood sugars well controlled currently. 7. Pancytopenia. Most probably secondary to underlying liver cirrhosis. Continue to monitor blood components. Transfuse as needed. 8. Transaminitis. Most probably secondary to underlying chronic liver disease. Continue to monitor the liver function tests closely. Avoid hepatotoxic medications. 9. Fluid, electrolytes and nutrition. Carbohydrate controlled diet. 10. Deep venous thrombosis prophylaxis. He was on Lovenox. However, this will be put on hold because of worsening thrombocytopenia. 11. Gastrointestinal prophylaxis. Proton pump inhibitors. PLAN: Continue inpatient care. Continue antibiotics. Await infectious disease evaluation. Case discussed with Dr. Kenyon. SARTHAK KENYON MD, AM/HUY Conf#: [id number] DID#: [id number] MTDD
[2017-02-02] MEDS ORDERED: MAGNESIUM SULFATE 3 GM in SOD CHLORIDE 0.9% 100 ML IVPB ONE (12:30)
[2017-02-02] MEDS ORDERED: VANCOMYCIN 1.25 GM in SOD CHLORIDE 0.9% 250 ML IVPB ONE (13:00)
--- NOTE | 2017-02-02 13:58 | CONS ---
DATE OF ADMISSION: 01/31/2017 DATE OF CONSULTATION: 02/02/2017 INFECTIOUS DISEASE CONSULTATION. REASON FOR CONSULTATION: Antibiotic management. HISTORY OF PRESENT ILLNESS: Dagoberto Grewal is a 56-year-old male who has a number of probl ems and is being admitted for probable alcohol intoxication and hyperglycemia. His past problems in clude: 1. Adult-onset diabetes mellitus. 2. Alcohol abuse. 3. Hypertension. 4. Chronic liver disease. The patient presents with 1 day of abdominal pain with bilateral lower quadrant pain which is interm ittent. The patient takes insulin. He is on 15 units of Lantus at night. His last drinks were in the a.m. and he had 2 beers and some additional alcohol on 01/31/2017 before coming in. PAST MEDICAL HISTORY: Operations as outlined. FAMILY HISTORY: Noncontributory. SOCIAL HISTORY: He does not smoke. He does drink heavily. He does not abuse drugs. ALLERGIES: NONE TO PENICILLIN, SULFA OR FOODS. MEDICATIONS: Per chart. REVIEW OF SYSTEMS: As per HPI. PHYSICAL EXAMINATION: GENERAL: The patient is a well-developed, well-nourished male, alert, responsive, in no acute distr ess. VITAL SIGNS: Stable. He is afebrile. SKIN: Without generalized rash. HEENT: Within normal limits. NECK: Supple. LYMPH NODES: None palpable. CHEST: Decreased breath sounds at the bases. HEART: Without murmur or gallop. ABDOMEN: Soft, slightly tender in bilateral lower quadrants without organosplenomegaly or masses. EXTREMITIES: Without cyanosis, clubbing, or edema. RECTAL AND GENITAL: Deferred. NEUROLOGIC: No focal neurological abnormalities. LABORATORY DATA: White count on admission was 12.9, H and H 9.7 and 30.8, platelet count of 97,000. BUN and creatinine 6/0.59, glucose random was 310. A chest x-ray showed mildly bibasilar atelecta tic changes, right greater than left, mild cardiomegaly. HOSPITAL COURSE: CT scan of the abdomen and pelvis showed large right scrotal hydrocele with scrota l wall thickening, left inguinal hernia with ____ bulging into the left inguinal canal, hepatospleno megaly with cirrhosis and ascites, hydrops gallbladder, mucosal thickening of the stomach and small bowel loops, reflex ileus, bibasilar atelectasis, mild cardiomegaly. The patient's blood cultures a re growing Staph species to be determined from 01/31/2017, urine cultures negative. He also had an ultrasound for paracentesis and 3.5 liters of serous fluid was aspirated. The patient also was seen in consultation by Dr. Grayson Wadsworth in surgical evaluation. The patient has alcoholic cirrhosis c omplicated by ascites and a GI bleed last year. He has portal hypertension. He is extremely high r isk for morbidity and mortality. He was seen by Dr. Scott Willis. He had lactic acidosis, a combi nation of alcohol and mild DKA. His UA was negative. Chest x-ray: No evidence of pneumonia. IMPRESSION AND PLAN: The patient is currently on vancomycin. His white count is 3.1. He is afebri le. T-max is 99.6. We will continue him on this current therapy. Blood cultures should be repeate d and they were. I will dictate my findings to the hospitalist and the aforementioned physicians. Dictated By: CHRISTIANO DOMINGUEZ MD, JD/HUY Conf#: [id number] DID#: [id number]
[2017-02-02] MEDS ORDERED: LORAZEPAM 1 MG TAB PO PRN (14:30)
[2017-02-02] MEDS: CHLORDIAZEPOXIDE 5 MG CAP PO SCH ×2 (15:38→21:35)
[2017-02-02 20:00] VITALS: BP 127/68; RESP 20
[2017-02-02] MEDS: INSULIN GLARGINE [LANtus] 3 ML PEN SC SCH (21:45)
[2017-02-03] MEDS: VANCOMYCIN 750 MG in SOD CHLORIDE 0.9% 150 ML IVPB SCH ×2 (00:37→13:30)
[2017-02-03] MEDS: HYDROCODONE/APAP (5/325) TAB PO PRN (02:16)
[2017-02-03] MEDS: ACCU-CHEK XX SCH (02:16)
[2017-02-03] MEDS: PANTOPRAZOLE (EC) 40 MG TAB PO SCH (06:09)
[2017-02-03 06:42] LABS: ADD SCAN DIFF NO
[2017-02-03 06:56] LABS: ABNORMAL IP MESSAGE 1; BASOPHILS % 0.3 % (0.0-2.0); EOSINOPHILS # 0.1 10^3/ul (0.0-0.5); HEMATOCRIT 28.9 % (42.0-52.0); HEMOGLOBIN 9.4 g/dl (14.0-18.0); LYMPHOCYTES # 0.7 10^3/ul (0.8-2.9); LYMPHOCYTES % 17.7 % (15.0-51.0); MEAN CORPUSCULAR HEMOGLOBIN 26.6 pg (29.0-33.0); MEAN CORPUSCULAR HGB CONC 32.5 g/dl (32.0-37.0); MEAN CORPUSCULAR VOLUME 81.6 fl (82.0-101.0); MEAN PLATELET VOLUME 9.9 fl (7.4-10.4); MONOCYTE # 0.4 10^3/ul (0.3-0.9); MONOCYTES % 8.8 % (0.0-11.0); NEUTROPHIL # 2.8 10^3/ul (1.6-7.5); NEUTROPHILS % 70.7 % (39.0-77.0); PLATELET COUNT 46 10^3/UL (140-415); RED BLOOD COUNT 3.54 10^6/ul (4.70-6.10); RED CELL DISTRIBUTION WIDTH 22.1 % (11.5-14.5)
[2017-02-03 06:58] LABS: MAGNESIUM 1.8 mg/dl (1.7-2.5); PHOSPHORUS 2.9 mg/dl (2.5-4.9)
[2017-02-03 07:03] LABS: ALBUMIN 2.7 g/dl (3.3-4.9); ALBUMIN/GLOBULIN RATIO 0.79; BILIRUBIN,INDIRECT 1.1 mg/dl (0-1.1); BILIRUBIN,TOTAL 1.1 mg/dl (0.2-1.3); CALCIUM 7.9 mg/dl (8.4-10.2); CREATININE 0.58 mg/dl (0.61-1.24); POTASSIUM 3.8 mmol/L (3.5-5.1); TOTAL PROTEIN 6.1 g/dl (6.1-8.1)
[2017-02-03 07:22] VITALS: BP_SYST 121; RESP 20
[2017-02-03] MEDS: INSULIN ASPART [NOVOLOG] 3 ML PEN SC SCH ×4 (08:15→21:00)
[2017-02-03] MEDS ORDERED: CHLORDIAZEPOXIDE 25 MG CAP PO SCH (09:00)
[2017-02-03] MEDS: MULTIVITAMINS 10 ML, THIAMINE 100 MG, FOLIC ACID 1 MG in SOD CHLORIDE 0.9% 1,000 ML IVPB SCH (10:03)
[2017-02-03] MEDS: FOLIC ACID 1 MG TAB PO SCH (10:03)
[2017-02-03] MEDS: FERROUS SULFATE (EC) 325 MG TAB PO SCH (10:03)
[2017-02-03] MEDS: CHLORDIAZEPOXIDE 5 MG CAP PO SCH ×3 (10:03→22:06)
[2017-02-03] MEDS: THIAMINE 100 MG TAB PO SCH (10:03)
[2017-02-03] MEDS: CHOLECALCIFEROL 1,000 UNIT TAB PO SCH (10:03)
--- NOTE | 2017-02-03 10:08 | PN ---
Date/Time of Note Date/Time of Note DATE: 02/03/17 TIME: 10:07 Assessment/Plan VTE Prophylaxis VTE Prophylaxis Intervention: SCD's Lines/Catheters [facility] Saline Lock Urinary Cath still in place: No Assessment/Plan Chief Complaint/Hosp Course 1. Sepsis with underlying gram-positive bacteremia. Source of infection is unclear. We will continue antibiotics. Infectious disease on the case. No evidence of septic shock. 2. Alcohol intoxication. The patient currently on a tapering dose of Librium. The patient also on a daily banana bag. 3. Alcoholic liver disease with underlying ascites. Status post paracentesis on 02/01/2017 with a drainage of 3.5 liters of serous fluid. 4. Hyperammonemia. We will start the patient on lactulose. 5. Right scrotal hydrocele with scrotal wall thickening is seen and evaluated by general surgery. No acute surgical intervention necessary. Elevate the scrotum. 6. Left inguinal hernia. No need for any acute surgical intervention. 7. Type 2 diabetes mellitus. Hemoglobin A1c 11.3. Continue sliding scale insulin. Blood sugars well controlled currently. 8. Pancytopenia, most probably secondary to underlying liver cirrhosis. Continue to monitor blood components. Transfuse as needed. 9. Transaminitis. Most probably secondary to underlying chronic liver disease. Continue to monitor the liver function tests closely. Avoid hepatotoxic medications. 10. Fluid, electrolytes and nutrition. Carbohydrate controlled diet. 11. Deep venous thrombosis prophylaxis. He was on Lovenox. However, this will be put on hold because of worsening thrombocytopenia. 12. Gastrointestinal prophylaxis. Proton pump inhibitors. PLAN: Continue inpatient care. Continue antibiotics. Await repeat blood cultures. Start lactulose. Case was discussed with Dr. Guzmán. Problems: Subjective 24 Hr Interval Summary Free Text/Dictation Complains of scrotal pain. Exam/Review of Systems Vital Signs Vitals Vital Signs Date Time Temp Pulse Resp B/P Pulse Ox O2 Delivery O2 Flow Rate FiO2 02/03/17 07:22 98.1 88 20 121/ 96 02/01/17 15:46 Room Air 01/31/17 20:00 2.0 Intake and Output 02/02/17 02/02/17 02/03/17 15:00 23:00 07:00 Intake Total 435 ml 2092.2 ml 650 ml Balance 435 ml 2092.2 ml 650 ml Exam GENERAL: Adequately built male patient lying in bed in no apparent distress. HEENT: Head normocephalic and atraumatic. Eyes: Anicteric sclerae. Conjunctivae clear. ENT: Nasal septum is midline. Oral mucosa is dry. NECK: Supple. No JVD noticed. RESPIRATORY: Bilaterally diminished breath sounds. No adventitious breath sounds. No use of accessory muscles of respiration. CARDIAC: Regular rate and rhythm. S1, S2. ABDOMEN: Ascites. Right lower quadrant tenderness upon palpation. GENITOURINARY: Right scrotal swelling. EXTREMITIES: No cyanosis, no clubbing, no edema. Peripheral pulses palpable. NEUROLOGIC: The patient is awake, alert and oriented. Cranial nerves are grossly intact. Results Result Diagram: 02/03/17 0502/03/17 0533 Results 24 hrs Laboratory Tests Test 02/02/17 14:52 02/02/17 21:36 02/03/17 02:20 02/03/17 05:33 Bedside Glucose 145 224 H 93 White Blood Count 4.0 #L Red Blood Count 3.54 L Hemoglobin 9.4 L Hematocrit 28.9 L Mean Corpuscular Volume 81.6 L Mean Corpuscular Hemoglobin 26.6 L Mean Corpuscular Hemoglobin Concent 32.5 Red Cell Distribution Width 22.1 H Platelet Count 46 L Mean Platelet Volume 9.9 Neutrophils % 70.7 Lymphocytes % 17.7 Monocytes % 8.8 Eosinophils % 2.0 Basophils % 0.3 Nucleated Red Blood Cells % 0.0 Neutrophils # 2.8 Lymphocytes # 0.7 L Monocytes # 0.4 Eosinophils # 0.1 Basophils # 0.0 Nucleated Red Blood Cells # 0.0 Sodium Level 140 Potassium Level 3.8 Chloride Level 111 H Carbon Dioxide Level 22 Anion Gap 11 Blood Urea Nitrogen 11 Creatinine 0.58 L Glucose Level 131 # Calcium Level 7.9 L Phosphorus Level 2.9 Magnesium Level 1.8 Total Bilirubin 1.1 Direct Bilirubin 0.00 Indirect Bilirubin 1.1 Aspartate Amino Transf (AST/SGOT) 85 H Alanine Aminotransferase (ALT/SGPT) 53 Alkaline Phosphatase 333 H Ammonia 104 H Total Protein 6.1 Albumin 2.7 L Globulin 3.40 H Albumin/Globulin Ratio 0.79 Medications Medications Current Medications Cholecalciferol (Vitamin D) 2,000 unit DAILY PO Last administered on 02/02/17t 10:29; Admin Dose 2,000 UNIT; Start 02/01/17 at 09:00 Ferrous Sulfate (Ferrous Sulfate (Ec)) 325 mg DAILY PO Last administered on 10:29; Admin Dose 325 MG; Start 02/01/17 at 09:00 Folic Acid (Folic Acid) 1 mg DAILY PO Last administered on 02/02/17 10:29; Admin Dose 1 MG; Start 02/01/17 at 09:00 Thiamine HCl (Vitamin B1) 100 mg DAILY PO Last administered on 02/02/17 10:29 ; Admin Dose 100 MG; Start 02/01/17 at 09:00 Pantoprazole (Protonix Tab) 40 mg DAILY@06 PO Last administered on 02/03/17 06 :09; Admin Dose 40 MG; Start 02/01/17 at 06:00 Ondansetron HCl (Zofran Tab) 4 mg Q6H PRN PO NAUSEA AND/OR VOMITING; Start at 18:30 Acetaminophen (Tylenol Tab) 650 mg Q6H PRN PO PAIN LEVEL 1-3 OR FEVER; Start at 18:30 Acetaminophen/ Hydrocodone Bitart ([place] (5/325)) 1 tab Q6H PRN PO MODERATE PAIN LEVEL 4-6 Last administered on 02/03/17 02:16; Admin Dose 1 TAB; Start at 18:30 Docusate Sodium (Colace) 100 mg Q12H PRN PO CONSTIPATION; Start 01/31/17 at 18: 30 Enoxaparin Sodium (Lovenox) 40 mg DAILY SC Last administered on 02/02/17 11:24 ; Admin Dose 40 MG; Start 02/01/17 at 09:00; Status Future Hold Insulin Glargine (Lantus) 15 unit QHS SC Last administered on 02/02/17 21:45; Admin Dose 15 UNIT; Start 01/31/17 at 21:00 Diagnostic Test (Pha) (Accu-Chek) 1 ea 02 XX Last administered on 02/03/17 02: 16; Admin Dose 1 EA; Start 02/01/17 at 02:00 Lorazepam (Ativan) 1 mg Q6H PRN PO CONTROL WITHDRAWAL SYMPTOMS; Start 01/31/17 at 18:30; Status Future Hold Miscellaneous Information 1 ea NOTE XX ; Start 01/31/17 at 18:30 Glucose (Glutose) 15 gm Q15M PRN PO DECREASED GLUCOSE; Start 01/31/17 at 18:30 Glucose (Glutose) 22.5 gm Q15M PRN PO DECREASED GLUCOSE; Start 01/31/17 at 18: 30 Dextrose (D50w Syringe) 25 ml Q15M PRN IV DECREASED GLUCOSE; Start 01/31/17 at 18:30 Dextrose (D50w Syringe) 50 ml Q15M PRN IV DECREASED GLUCOSE; Start 01/31/17 at 18:30 Glucagon (Glucagen) 1 mg Q15M PRN IM DECREASED GLUCOSE; Start 01/31/17 at 18:30 Glucose 15 gm 15 gm Q15M PRN BUCCAL DECREASED GLUCOSE; Start 01/31/17 at 18:30 Multivitamins 10 ml/Thiamine HCl 100 mg/Folic Acid 1 mg/Sodium Chloride 1,011.2 ml @ 125 mls/ hr DAILY@09 IVPB Last administered on 02/02/17 10:31; Admin Dose 125 MLS/HR; Start 02/01/17 at 09:00 Vancomycin HCl/ Sodium Chloride (Vancocin/NS) 150 ml @ 75 mls/hr Q12H IVPB Last administered on 02/03/17 00:37; Admin Dose 75 MLS/HR; Start 02/03/17 at 01 :00 Chlordiazepoxide (Librium) 10 mg TID PO Last administered on 02/02/17 21:35; Admin Dose 10 MG; Start 02/02/17 at 13:00 Lorazepam (Ativan) 2 mg Q6H PRN PO Agitation; Start 02/02/17 at 14:30 SARTHAK BOGGS NP Feb 03, 2017 10:08
[2017-02-03] MEDS: LACTULOSE 30ML CUP PO SCH ×2 (13:41→22:06)
--- NOTE | 2017-02-03 15:06 | PN ---
Date/Time of Note Date/Time of Note DATE: 02/03/17 TIME: 15:00 Assessment/Plan Lines/Catheters IV Catheter Type (from Nrs): Peripheral IV Duffy in Place (from Nrs): No Assessment/Plan Assessment/Plan [facility] Progress Note Date of Service: 02/03/17 Today's Impression & Plan: Overall stable. No acute surgical issues. Difficult psychosocial problem in the setting of ETOH cirrhosis complicated by ascites, hydrocele, and likely SBP with bacteremia. Surgical intervention relatively contraindicated. With above assessment, I've recommended the following for today: 1. Cont medical management 2. Cont antimicrobial therapy and optimization of diuresis and liver care 3. Will visit as needed Thank you again for your great care of this very pleasant patient and wonderful family. If there are any questions, please feel free to call me at [phone]. TOTAL VISIT TIME: 20 minutes of which more than half was spent in [id number] discussion with the patient, possibly including family, as well as coordination of care between multiple physicians and providers. Disclaimer: Inadvertent spelling or grammatical errors are likely due to EHR/ dictation software use and do not reflect on the overall quality of patient care. Updated Clinical Summary: A very pleasant 56-year-old gentleman with known history of cirrhosis and 1 episode of gastrointestinal bleeding presenting to the emergency department at [facility] on 01/31/2017 with an enlarged groin and scrotum. COMORBIDITIES: 1. Alcoholic cirrhosis complicated by ascites and at least 1 episode of upper gastrointestinal bleeding. 2. Possible diabetes. 3. Right scrotal hydrocele with scrotal wall thickening. 4. Left inguinal hernia. 5. Hepatomegaly with cirrhosis. 6. Mild cardiomegaly. Subjective: No major events or complaints; no abd pain and under control with medications; no n/v/d; no sob or cp; + flatus; + BM; minimal activity Objective: Vitals: See below Exam: GENERAL: On exam, the patient was laying in bed and appeared to be comfortable and in no acute distress. ABDOMEN: Soft, nontender and nondistended. There are no peritoneal signs or guarding. Scrotum swollen, but soft. Filled with ascites. SKIN: Skin appears to be pink and feels warm to touch. NEUROLOGIC: Patient is awake, alert, and follows commands appropriately. Exam/Review of Systems Vital Signs Vitals Vital Signs Date Time Temp Pulse Resp B/P Pulse Ox O2 Delivery O2 Flow Rate FiO2 02/03/17 07:22 98.1 88 20 121/ 96 02/01/17 15:46 Room Air 01/31/17 20:00 2.0 Intake and Output 02/02/17 02/02/17 02/03/17 15:00 23:00 07:00 Intake Total 435 ml 2092.2 ml 650 ml Balance 435 ml 2092.2 ml 650 ml Results Result Diagram: 02/03/17 0533 02/03/17 0533 KIRA BOWIE M.D. Feb 03, 2017 15:06
--- NOTE | 2017-02-03 18:21 | PN ---
DATE: 02/03/2017 SUBJECTIVE: No acute changes. The patient is awake, looks comfortable, no fevers. Complaining als o lower abdomen and scrotal pain. LABORATORY DATA: WBC today 4, no shift, no bands. Platelets 46. BUN 11, creatinine 0.58. MICROBIOLOGY: Blood culture on admission grew coagulase-negative staph species. Urine culture albert ins negative. Peritoneal fluid culture is negative also for Gram stain. DIAGNOSTICS: CT of the abdomen revealed marked right scrotal hydrocele with scrotal wall thickening , left inguinal hernia, hepatosplenomegaly with cirrhosis and ascites, bibasilar atelectasis, and mi ld cardiomegaly. ANTIMICROBIALS: The patient is on IV vancomycin. PHYSICAL EXAMINATION: GENERAL: Well-developed, middle-aged man who is alert, in no distress. HEENT: Head atraumatic, normocephalic. Sclerae anicteric. Buccal mucosa dry. NECK: Supple. CHEST: Rise symmetrical. Breath sounds diminished to bases. HEART: S1, S2. ABDOMEN: Soft, bowel tones present. EXTREMITIES: Without cyanosis. ASSESSMENT: 1. Coagulase-negative staphylococcus bacteremia, likely contaminant, repeat blood cultures have bee n negative. 2. Cirrhosis with ascites, status post paracentesis, no evidence for spontaneous bacterial peritoni tis. 3. Bilateral atelectasis. 4. Right scrotal hydrocele. 5. ETOH abuse. 6. Diabetes. PLAN: The patient remains stable. Again, his ascitic fluid was negative and repeat blood cultures are negative as well. There is no indication for any surgical intervention at this point. We are g oing to discontinue vancomycin and observe him. If he spikes fever, we will repeat cultures. Consi franchesca gastroenterology evaluation. Dictated By: JOSE PADRON SKIP LOCATOR for CHRISTIANO DOMINGUEZ MD NI/NTS Conf#: [id number] DID#: [id number] CC: KIYA KENYON MD;*EndCC*
[2017-02-03 20:15] VITALS: BP 129/78; RESP 18
[2017-02-03] MEDS: INSULIN GLARGINE [LANtus] 3 ML PEN SC SCH (22:13)
[2017-02-04] MEDS: ACCU-CHEK XX SCH (02:00)
[2017-02-04] MEDS: LACTULOSE 30ML CUP PO SCH ×3 (06:18→21:14)
[2017-02-04] MEDS: PANTOPRAZOLE (EC) 40 MG TAB PO SCH (06:18)
[2017-02-04 06:41] LABS: ADD SCAN DIFF NO
[2017-02-04 06:54] LABS: ABNORMAL IP MESSAGE 1; BASOPHILS % 0.6 % (0.0-2.0); EOSINOPHILS # 0.1 10^3/ul (0.0-0.5); EOSINOPHILS % 2.3 % (0.0-7.0); HEMATOCRIT 29.7 % (42.0-52.0); HEMOGLOBIN 9.4 g/dl (14.0-18.0); LYMPHOCYTES # 0.9 10^3/ul (0.8-2.9); LYMPHOCYTES % 26.9 % (15.0-51.0); MEAN CORPUSCULAR HEMOGLOBIN 26.7 pg (29.0-33.0); MEAN CORPUSCULAR HGB CONC 31.6 g/dl (32.0-37.0); MEAN CORPUSCULAR VOLUME 84.4 fl (82.0-101.0); MEAN PLATELET VOLUME 9.8 fl (7.4-10.4); MONOCYTE # 0.3 10^3/ul (0.3-0.9); MONOCYTES % 9.4 % (0.0-11.0); NEUTROPHIL # 2.1 10^3/ul (1.6-7.5); NEUTROPHILS % 60.2 % (39.0-77.0); PLATELET COUNT 44 10^3/UL (140-415); RED BLOOD COUNT 3.52 10^6/ul (4.70-6.10); RED CELL DISTRIBUTION WIDTH 22.7 % (11.5-14.5); WHITE BLOOD COUNT 3.5 10^3/ul (4.8-10.8)
[2017-02-04 07:14] LABS: ALBUMIN 2.8 g/dl (3.3-4.9); ALBUMIN/GLOBULIN RATIO 0.84; BILIRUBIN,INDIRECT 1.2 mg/dl (0-1.1); BILIRUBIN,TOTAL 1.2 mg/dl (0.2-1.3); CALCIUM 7.8 mg/dl (8.4-10.2); CREATININE 0.54 mg/dl (0.61-1.24); POTASSIUM 3.6 mmol/L (3.5-5.1); TOTAL PROTEIN 6.1 g/dl (6.1-8.1)
[2017-02-04 07:32] LABS: MAGNESIUM 1.6 mg/dl (1.7-2.5); PHOSPHORUS 3.6 mg/dl (2.5-4.9)
[2017-02-04 07:48] VITALS: BP 116/83; RESP 20
[2017-02-04] MEDS: INSULIN ASPART [NOVOLOG] 3 ML PEN SC SCH ×4 (07:56→21:21)
[2017-02-04] MEDS: CHLORDIAZEPOXIDE 5 MG CAP PO SCH ×3 (08:13→21:14)
[2017-02-04] MEDS: CHOLECALCIFEROL 1,000 UNIT TAB PO SCH (08:13)
[2017-02-04] MEDS: FOLIC ACID 1 MG TAB PO SCH (08:13)
[2017-02-04] MEDS: THIAMINE 100 MG TAB PO SCH (08:13)
[2017-02-04] MEDS: FERROUS SULFATE (EC) 325 MG TAB PO SCH (08:13)
[2017-02-04] MEDS ORDERED: MAGNESIUM SULFATE 2 GM/50 ML 50 ML IVPB ONE (10:00)
--- NOTE | 2017-02-04 10:10 | PN ---
Date/Time of Note Date/Time of Note DATE: 02/04/17 TIME: 10:07 Assessment/Plan VTE Prophylaxis VTE Prophylaxis Intervention: SCD's Lines/Catheters [facility]ter Type (from [facility]): Peripheral IV Urinary Cath still in place: No Assessment/Plan Chief Complaint/Hosp Course 1. Sepsis with underlying gram-positive bacteremia. Source of infection is unclear. Repeat blood cultures have been negative. Infectious disease following. The patient has been taken off antibiotics since there is no definite evidence of a source of infection. 2. Alcohol intoxication. The patient currently on a tapering dose of Librium. The patient also on a daily banana bag. 3. Alcoholic liver disease with underlying ascites. Status post paracentesis on 02/01/2017 with a drainage of 3.5 liters of serous fluid. 4. Hyperammonemia. Will continue the patient on lactulose. 5. Right scrotal hydrocele with scrotal wall thickening is seen and evaluated by general surgery. No acute surgical intervention necessary. Elevate the scrotum. 6. Left inguinal hernia. No need for any acute surgical intervention. 7. Type 2 diabetes mellitus. Hemoglobin A1c 11.3. Continue sliding scale insulin. Blood sugars well controlled currently. 8. Pancytopenia, most probably secondary to underlying liver cirrhosis. Continue to monitor blood components. Transfuse as needed. 9. Transaminitis. Most probably secondary to underlying chronic liver disease. Continue to monitor the liver function tests closely. Avoid hepatotoxic medications. 10. Debility. Will obtain a physical therapy evaluation. 11. Fluid, electrolytes and nutrition. Carbohydrate controlled diet. 12. Deep venous thrombosis prophylaxis. He was on Lovenox. However, this will be put on hold because of worsening thrombocytopenia. 13. Gastrointestinal prophylaxis. Proton pump inhibitors. PLAN: Continue inpatient care. The patient has been off antibiotics as per infectious diseases. Will monitor for any fevers. Obtain physical therapy evaluation because of debility. Case was discussed with Dr. Resendiz. Problems: Subjective 24 Hr Interval Summary Free Text/Dictation Denies any abdominal pain no scrotal pain. Remains afebrile. Exam/Review of Systems Vital Signs Vitals Vital Signs Date Time Temp Pulse Resp B/P Pulse Ox O2 Delivery O2 Flow Rate FiO2 02/04/17 07:48 97.5 89 20 116/83 100 02/04/17 07:40 Nasal Cannula 2.0 Intake and Output 602/03/17 02/04/17 15:00 23:00 07:00 Intake Total 1410 ml 1211.2 ml Output Total 300 ml 350 ml Balance 1110 ml 861.2 ml Exam GENERAL: Adequately built male patient lying in bed in no apparent distress. HEENT: Head normocephalic and atraumatic. Eyes: Anicteric sclerae. Conjunctivae clear. ENT: Nasal septum is midline. Oral mucosa is dry. NECK: Supple. No JVD noticed. RESPIRATORY: Bilaterally diminished breath sounds. No adventitious breath sounds. No use of accessory muscles of respiration. CARDIAC: Regular rate and rhythm. S1, S2. ABDOMEN: Ascites. Right lower quadrant tenderness upon palpation. GENITOURINARY: Right scrotal swelling. EXTREMITIES: No cyanosis, no clubbing, no edema. Peripheral pulses palpable. NEUROLOGIC: The patient is awake, alert and oriented. Cranial nerves are grossly intact. Results Result Diagram: 02/04/17 0456 02/04/17 0456 Results 24 hrs Laboratory Tests Test 02/03/17 12:15 02/03/17 17:58 02/03/17 22:04 02/04/17 04:56 Bedside Glucose 105 185 175 White Blood Count 3.5 L Red Blood Count 3.52 L Hemoglobin 9.4 L Hematocrit 29.7 L Mean Corpuscular Volume 84.4 Mean Corpuscular Hemoglobin 26.7 L Mean Corpuscular Hemoglobin Concent 31.6 L Red Cell Distribution Width 22.7 H Platelet Count 44 L Mean Platelet Volume 9.8 Neutrophils % 60.2 Lymphocytes % 26.9 Monocytes % 9.4 Eosinophils % 2.3 Basophils % 0.6 Nucleated Red Blood Cells % 0.0 Neutrophils # 2.1 Lymphocytes # 0.9 Monocytes # 0.3 Eosinophils # 0.1 Basophils # 0.0 Nucleated Red Blood Cells # 0.0 Sodium Level 138 Potassium Level 3.6 Chloride Level 110 Carbon Dioxide Level 23 Anion Gap 9 Blood Urea Nitrogen 9 Creatinine 0.54 L Glucose Level 95 Calcium Level 7.8 L Phosphorus Level 3.6 Magnesium Level 1.6 L Total Bilirubin 1.2 Direct Bilirubin 0.00 Indirect Bilirubin 1.2 H Aspartate Amino Transf (AST/SGOT) 82 H Alanine Aminotransferase (ALT/SGPT) 54 Alkaline Phosphatase 306 H Ammonia 87 H Total Protein 6.1 Albumin 2.8 L Globulin 3.30 H Albumin/Globulin Ratio 0.84 Test 02/04/17 07:56 Bedside Glucose 88 Medications Medications Current Medications Cholecalciferol (Vitamin D) 2,000 unit DAILY PO Last administered on 02/04/17 08:13; Admin Dose 2,000 UNIT; Start 02/01/17 at 09:00 Ferrous Sulfate (Ferrous Sulfate (Ec)) 325 mg DAILY PO Last administered on 08:13; Admin Dose 325 MG; Start 02/01/17 at 09:00 Folic Acid (Folic Acid) 1 mg DAILY PO Last administered on 02/04/17 08:13; Admin Dose 1 MG; Start 02/01/17 at 09:00 Thiamine HCl (Vitamin B1) 100 mg DAILY PO Last administered on 02/04/17 08:13 ; Admin Dose 100 MG; Start 02/01/17 at 09:00 Pantoprazole (Protonix Tab) 40 mg DAILY@06 PO Last administered on 02/04/17 06 :18; Admin Dose 40 MG; Start 02/01/17 at 06:00 Ondansetron HCl (Zofran Tab) 4 mg Q6H PRN PO NAUSEA AND/OR VOMITING; Start at 18:30 Acetaminophen (Tylenol Tab) 650 mg Q6H PRN PO PAIN LEVEL 1-3 OR FEVER; Start at 18:30 Acetaminophen/ Hydrocodone Bitart ([place] (5/325)) 1 tab Q6H PRN PO MODERATE PAIN LEVEL 4-6 Last administered on 02/03/17 02:16; Admin Dose 1 TAB; Start at 18:30 Docusate Sodium (Colace) 100 mg Q12H PRN PO CONSTIPATION; Start 01/31/17 at 18: 30 Enoxaparin Sodium (Lovenox) 40 mg DAILY SC Last administered on 02/02/17 11:24 ; Admin Dose 40 MG; Start 02/01/17 at 09:00; Status Future Hold Insulin Glargine (Lantus) 15 unit QHS SC Last administered on 02/03/17 22:13; Admin Dose 15 UNIT; Start 01/31/17 at 21:00 Diagnostic Test (Pha) (Accu-Chek) 1 ea 02 XX Last administered on 02/03/17 02: 16; Admin Dose 1 EA; Start 02/01/17 at 02:00 Lorazepam (Ativan) 1 mg Q6H PRN PO CONTROL WITHDRAWAL SYMPTOMS; Start 01/31/17 at 18:30; Status Future Hold Miscellaneous Information 1 ea NOTE XX ; Start 01/31/17 at 18:30 Glucose (Glutose) 15 gm Q15M PRN PO DECREASED GLUCOSE; Start 01/31/17 at 18:30 Glucose (Glutose) 22.5 gm Q15M PRN PO DECREASED GLUCOSE; Start 01/31/17 at 18: 30 Dextrose (D50w Syringe) 25 ml Q15M PRN IV DECREASED GLUCOSE; Start 01/31/17 at 18:30 Dextrose (D50w Syringe) 50 ml Q15M PRN IV DECREASED GLUCOSE; Start 01/31/17 at 18:30 Glucagon (Glucagen) 1 mg Q15M PRN IM DECREASED GLUCOSE; Start 01/31/17 at 18:30 Glucose 15 gm 15 gm Q15M PRN BUCCAL DECREASED GLUCOSE; Start 01/31/17 at 18:30 Multivitamins/ Thiamine HCl/ Folic Acid/Sodium Chloride (Mvi Adult/ Vitamin B1/ Folic Acid/NS) 1,011.2 ml @ 125 mls/ hr DAILY@09 IVPB Last administered on 10:03; Admin Dose 125 MLS/HR; Start 02/01/17 at 09:00 Chlordiazepoxide (Librium) 10 mg TID PO Last administered on 02/04/17 08:13; Admin Dose 10 MG; Start 02/02/17 at 13:00 Lorazepam (Ativan) 2 mg Q6H PRN PO Agitation; Start 02/02/17 at 14:30 Lactulose 20 gm 20 gm Q8 PO Last administered on 02/04/17 06:18; Admin Dose 20 GM; Start 02/03/17 at 14:00 Magnesium Sulfate (Magnesium Sulfate 2 Gm/50 ml) 50 ml @ 25 mls/hr ONCE ONCE IVPB ; Start 02/04/17 at 10:00; Stop 02/04/17 at 11:59 SARTHAK BOGGS NP Feb 04, 2017 10:10
--- NOTE | 2017-02-04 13:47 | CONS ---
Date/Time of Note Date/Time of Note DATE: 02/04/17 TIME: 13:42 Assessment/Plan Assessment/Plan Chief Complaint/Hosp Course SUBJECTIVE: No acute changes. The patient is sleeping, looks comfortable, no fevers. MICROBIOLOGY: Blood culture on admission grew coagulase-negative staph species. Urine culture remains negative. Peritoneal fluid culture is negative also for Gram stain. DIAGNOSTICS: CT of the abdomen revealed marked right scrotal hydrocele with scrotal wall thickening, left inguinal hernia, hepatosplenomegaly with cirrhosis and ascites, bibasilar atelectasis, and mild cardiomegaly. PHYSICAL EXAMINATION: GENERAL: Well-developed, middle-aged man who is alert, in no distress. HEENT: Head atraumatic, normocephalic. Sclerae anicteric. Buccal mucosa dry. NECK: Supple. CHEST: Rise symmetrical. Breath sounds diminished to bases. HEART: S1, S2. ABDOMEN: Soft, bowel tones present. EXTREMITIES: Without cyanosis. ASSESSMENT: 1. Coagulase-negative staphylococcus bacteremia, cw contaminant, repeat blood cultures have been negative. 2. Cirrhosis with ascites, status post paracentesis, no evidence for spontaneous bacterial peritonitis. 3. Bilateral atelectasis. 4. Right scrotal hydrocele. 5. ETOH abuse. 6. Diabetes. PLAN: The patient remains stable. His ascitic fluid cx was negative and repeat blood cultures are negative as well. There is no indication for any surgical intervention at this point. He is off abx. If he spikes fever, we will repeat cultures. Consider gastroenterology evaluation. DW staff Problems: Consultation Date/Type/Reason Admit Date/Time Jan 31, 2017 at 13:39 Initial Consult Date Type of Consultation: ID Exam/Review of Systems Vital Signs Vitals Vital Signs Date Time Temp Pulse Resp B/P Pulse Ox O2 Delivery O2 Flow Rate FiO2 02/04/17 07:48 97.5 89 20 116/83 100 02/04/17 07:40 Nasal Cannula 2.0 Intake and Output 02/03/17 02/03/17 02/04/17 15:00 23:00 07:00 Intake Total 1410 ml 1211.2 ml Output Total 300 ml 350 ml Balance 1110 ml 861.2 ml Results Result Diagram: 02/04/17 0456 02/04/17 0456 Results 24 hrs Laboratory Tests Test 02/03/17 17:58 02/03/17 22:04 02/04/17 04:56 02/04/17 07:56 Bedside Glucose 185 175 88 White Blood Count 3.5 L Red Blood Count 3.52 L Hemoglobin 9.4 L Hematocrit 29.7 L Mean Corpuscular Volume 84.4 Mean Corpuscular Hemoglobin 26.7 L Mean Corpuscular Hemoglobin Concent 31.6 L Red Cell Distribution Width 22.7 H Platelet Count 44 L Mean Platelet Volume 9.8 Neutrophils % 60.2 Lymphocytes % 26.9 Monocytes % 9.4 Eosinophils % 2.3 Basophils % 0.6 Nucleated Red Blood Cells % 0.0 Neutrophils # 2.1 Lymphocytes # 0.9 Monocytes # 0.3 Eosinophils # 0.1 Basophils # 0.0 Nucleated Red Blood Cells # 0.0 Sodium Level 138 Potassium Level 3.6 Chloride Level 110 Carbon Dioxide Level 23 Anion Gap 9 Blood Urea Nitrogen 9 Creatinine 0.54 L Glucose Level 95 Calcium Level 7.8 L Phosphorus Level 3.6 Magnesium Level 1.6 L Total Bilirubin 1.2 Direct Bilirubin 0.00 Indirect Bilirubin 1.2 H Aspartate Amino Transf (AST/SGOT) 82 H Alanine Aminotransferase (ALT/SGPT) 54 Alkaline Phosphatase 306 H Ammonia 87 H Total Protein 6.1 Albumin 2.8 L Globulin 3.30 H Albumin/Globulin Ratio 0.84 Test 02/04/17 12:03 Bedside Glucose 229 H Medications Medications Current Medications Cholecalciferol (Vitamin D) 2,000 unit DAILY PO Last administered on 02/04/17 08:13; Admin Dose 2,000 UNIT; Start 02/01/17 at 09:00 Ferrous Sulfate (Ferrous Sulfate (Ec)) 325 mg DAILY PO Last administered on 08:13; Admin Dose 325 MG; Start 02/01/17 at 09:00 Folic Acid (Folic Acid) 1 mg DAILY PO Last administered on 02/04/17 08:13; Admin Dose 1 MG; Start 02/01/17 at 09:00 Thiamine HCl (Vitamin B1) 100 mg DAILY PO Last administered on 02/04/17 08:13 ; Admin Dose 100 MG; Start 02/01/17 at 09:00 Pantoprazole (Protonix Tab) 40 mg DAILY@06 PO Last administered on 02/04/17 06 :18; Admin Dose 40 MG; Start 02/01/17 at 06:00 Ondansetron HCl (Zofran Tab) 4 mg Q6H PRN PO NAUSEA AND/OR VOMITING; Start at 18:30 Acetaminophen (Tylenol Tab) 650 mg Q6H PRN PO PAIN LEVEL 1-3 OR FEVER; Start at 18:30 Acetaminophen/ Hydrocodone Bitart ([place] (5/325)) 1 tab Q6H PRN PO MODERATE PAIN LEVEL 4-6 Last administered on 02/03/17 02:16; Admin Dose 1 TAB; Start at 18:30 Docusate Sodium (Colace) 100 mg Q12H PRN PO CONSTIPATION; Start 01/31/17 at 18: 30 Enoxaparin Sodium (Lovenox) 40 mg DAILY SC Last administered on 02/02/17 11:24 ; Admin Dose 40 MG; Start 02/01/17 at 09:00; Status Future Hold Insulin Glargine (Lantus) 15 unit QHS SC Last administered on 02/03/17 22:13; Admin Dose 15 UNIT; Start 01/31/17 at 21:00 Diagnostic Test (Pha) (Accu-Chek) 1 ea 02 XX Last administered on 02/03/17 02: 16; Admin Dose 1 EA; Start 02/01/17 at 02:00 Lorazepam (Ativan) 1 mg Q6H PRN PO CONTROL WITHDRAWAL SYMPTOMS; Start 01/31/17 at 18:30; Status Future Hold Miscellaneous Information 1 ea NOTE XX ; Start 01/31/17 at 18:30 Glucose (Glutose) 15 gm Q15M PRN PO DECREASED GLUCOSE; Start 01/31/17 at 18:30 Glucose (Glutose) 22.5 gm Q15M PRN PO DECREASED GLUCOSE; Start 01/31/17 at 18: 30 Dextrose (D50w Syringe) 25 ml Q15M PRN IV DECREASED GLUCOSE; Start 01/31/17 at 18:30 Dextrose (D50w Syringe) 50 ml Q15M PRN IV DECREASED GLUCOSE; Start 01/31/17 at 18:30 Glucagon (Glucagen) 1 mg Q15M PRN IM DECREASED GLUCOSE; Start 01/31/17 at 18:30 Glucose 15 gm 15 gm Q15M PRN BUCCAL DECREASED GLUCOSE; Start 01/31/17 at 18:30 Multivitamins/ Thiamine HCl/ Folic Acid/Sodium Chloride (Mvi Adult/ Vitamin B1/ Folic Acid/NS) 1,011.2 ml @ 125 mls/ hr DAILY@09 IVPB Last administered on 10:03; Admin Dose 125 MLS/HR; Start 02/01/17 at 09:00 Chlordiazepoxide (Librium) 10 mg TID PO Last administered on 02/04/17 13:17; Admin Dose 10 MG; Start 02/02/17 at 13:00 Lorazepam (Ativan) 2 mg Q6H PRN PO Agitation; Start 02/02/17 at 14:30 Lactulose (Enulose) 20 gm Q8 PO Last administered on 02/04/17 13:17; Admin Dose 20 GM; Start 02/03/17 at 14:00 JOSE PADRON NP Feb 04, 2017 13:47
[2017-02-04] MEDS: MULTIVITAMINS 10 ML, THIAMINE 100 MG, FOLIC ACID 1 MG in SOD CHLORIDE 0.9% 1,000 ML IVPB SCH (17:41)
[2017-02-04 20:02] VITALS: BP 132/76; RESP 16
[2017-02-04] MEDS: INSULIN GLARGINE [LANtus] 3 ML PEN SC SCH (21:21)
[2017-02-04] MEDS ORDERED: INSULIN ASPART [NOVOLOG] 3 ML PEN SC ONE (21:30)
[2017-02-05] MEDS: ACCU-CHEK XX SCH (02:00)
[2017-02-05 06:04] LABS: ADD SCAN DIFF NO
[2017-02-05 06:05] LABS: ABNORMAL IP MESSAGE 1; BASOPHILS % 0.6 % (0.0-2.0); EOSINOPHILS % 0.9 % (0.0-7.0); HEMATOCRIT 30.6 % (42.0-52.0); HEMOGLOBIN 9.6 g/dl (14.0-18.0); LYMPHOCYTES # 0.5 10^3/ul (0.8-2.9); LYMPHOCYTES % 10.8 % (15.0-51.0); MEAN CORPUSCULAR HEMOGLOBIN 26.1 pg (29.0-33.0); MEAN CORPUSCULAR HGB CONC 31.4 g/dl (32.0-37.0); MEAN CORPUSCULAR VOLUME 83.2 fl (82.0-101.0); MEAN PLATELET VOLUME 10.1 fl (7.4-10.4); MONOCYTE # 0.5 10^3/ul (0.3-0.9); MONOCYTES % 9.9 % (0.0-11.0); NEUTROPHIL # 3.6 10^3/ul (1.6-7.5); NEUTROPHILS % 77.6 % (39.0-77.0); PLATELET COUNT 42 10^3/UL (140-415); RED BLOOD COUNT 3.68 10^6/ul (4.70-6.10); RED CELL DISTRIBUTION WIDTH 23.2 % (11.5-14.5); WHITE BLOOD COUNT 4.6 10^3/ul (4.8-10.8)
[2017-02-05] MEDS: LACTULOSE 30ML CUP PO SCH ×3 (06:28→21:28)
[2017-02-05] MEDS: PANTOPRAZOLE (EC) 40 MG TAB PO SCH (06:29)
[2017-02-05 06:40] LABS: ALBUMIN 2.9 g/dl (3.3-4.9); ALBUMIN/GLOBULIN RATIO 0.85; BILIRUBIN,INDIRECT 1.3 mg/dl (0-1.1); BILIRUBIN,TOTAL 1.3 mg/dl (0.2-1.3); CREATININE 0.57 mg/dl (0.61-1.24); POTASSIUM 3.7 mmol/L (3.5-5.1); TOTAL PROTEIN 6.3 g/dl (6.1-8.1)
[2017-02-05] MEDS: INSULIN ASPART [NOVOLOG] 3 ML PEN SC SCH ×4 (07:51→21:30)
[2017-02-05 08:11] VITALS: BP 115/73; RESP 16
[2017-02-05] MEDS: CHOLECALCIFEROL 1,000 UNIT TAB PO SCH (08:34)
[2017-02-05] MEDS: FERROUS SULFATE (EC) 325 MG TAB PO SCH (08:34)
[2017-02-05] MEDS: CHLORDIAZEPOXIDE 5 MG CAP PO SCH ×3 (08:34→21:27)
[2017-02-05] MEDS: MULTIVITAMINS 10 ML, THIAMINE 100 MG, FOLIC ACID 1 MG in SOD CHLORIDE 0.9% 1,000 ML IVPB SCH (08:34)
[2017-02-05] MEDS: THIAMINE 100 MG TAB PO SCH (08:34)
[2017-02-05] MEDS: FOLIC ACID 1 MG TAB PO SCH (08:34)
--- NOTE | 2017-02-05 10:37 | PN ---
Date/Time of Note Date/Time of Note DATE: 02/05/17 TIME: 10:33 Assessment/Plan VTE Prophylaxis VTE Prophylaxis Intervention: contraindicated VTE Contraindication Reason: blood coagulation disorder, thrombocytopenia Lines/Catheters IV C[facility] Type (from [facility] Peripheral IV Urinary Cath still in place: No Assessment/Plan Assessment/Plan 1. Sepsis with underlying gram-positive bacteremia. contaminant - resolved - appreciate ID recs 2. Alcohol intoxication. The patient currently on a tapering dose of Librium. The patient also on a daily banana bag. 3. Alcoholic liver disease with underlying ascites. Status post paracentesis on 02/01/2017 with a drainage of 3.5 liters of serous fluid. monitor fluid imbalance, check albumin 4. Hyperammonemia. Will continue the patient on lactulose, added rifaximin - elevated - but has good cognition 5. Right scrotal hydrocele with scrotal wall thickening is seen and evaluated by general surgery. No acute surgical intervention necessary. Elevate the scrotum. 6. Left inguinal hernia. No need for any acute surgical intervention. 7. Type 2 diabetes mellitus. Hemoglobin A1c 11.3. Continue sliding scale insulin. Blood sugars well controlled currently. 8. Pancytopenia, most probably secondary to underlying liver cirrhosis. Continue to monitor blood components. Transfuse as needed. 9. Transaminitis. Most probably secondary to underlying chronic liver disease. Continue to monitor the liver function tests closely. Avoid hepatotoxic medications. 10. Debility. Will obtain a physical therapy evaluation. 11. Fluid, electrolytes and nutrition. Carbohydrate controlled diet. 12. Deep venous thrombosis prophylaxis. He was on Lovenox. However, this will be put on hold because of worsening thrombocytopenia. 13. Gastrointestinal prophylaxis. Proton pump inhibitors. PLAN: Continue inpatient care. PT evaluation - needs placement for debility/ deconditioning. this progress note took greater than 30 minutes to complete Subjective 24 Hr Interval Summary Free Text/Dictation Patient had no overnight events. He states that he has chills and some abdominal pain. Discussed with him the care plan. 15 minutes spent. Exam/Review of Systems Vital Signs Vitals Vital Signs Date Time Temp Pulse Resp B/P Pulse Ox O2 Delivery O2 Flow Rate FiO2 02/05/17 08:11 98.5 96 16 115/73 98 02/04/17 07:40 Nasal Cannula 2.0 Intake and Output 02/04/17 02/04/17 02/05/17 15:00 23:00 07:00 Intake Total 1250 ml 1511.2 ml Output Total 1450 ml Balance -200 ml 1511.2 ml Exam GENERAL: NAD, AAOx3, [place] speaking HEENT: Head normocephalic and atraumatic. Eyes: Anicteric sclerae. Conjunctivae clear. ENT: Nasal septum is midline. Oral mucosa is dry. NECK: Supple. No JVD noticed. RESPIRATORY: Bilaterally diminished breath sounds. No adventitious breath sounds. No use of accessory muscles of respiration. CARDIAC: Regular rate and rhythm. S1, S2. ABDOMEN: Ascites. Right lower quadrant tenderness upon palpation, non- distended, +BS GENITOURINARY: Right scrotal swelling. EXTREMITIES: No cyanosis, no clubbing, no edema. Peripheral pulses palpable. NEUROLOGIC: The patient is awake, alert and oriented. Cranial nerves are grossly intact. Results Result Diagram: 02/05/17 0510 02/05/17 0510 Results 24 hrs Laboratory Tests Test 02/04/17 12:03 02/04/17 17:21 02/04/17 21:17 02/04/17 21:50 Bedside Glucose 229 H 152 301 H 287 H Test 02/04/17 23:25 02/05/17 02:52 02/05/17 05:10 02/05/17 07:50 Bedside Glucose 159 120 136 White Blood Count 4.6 #L Red Blood Count 3.68 L Hemoglobin 9.6 L Hematocrit 30.6 L Mean Corpuscular Volume 83.2 Mean Corpuscular Hemoglobin 26.1 L Mean Corpuscular Hemoglobin Concent 31.4 L Red Cell Distribution Width 23.2 H Platelet Count 42 L Mean Platelet Volume 10.1 Neutrophils % 77.6 H Lymphocytes % 10.8 L Monocytes % 9.9 Eosinophils % 0.9 Basophils % 0.6 Nucleated Red Blood Cells % 0.0 Neutrophils # 3.6 Lymphocytes # 0.5 L Monocytes # 0.5 Eosinophils # 0.0 Basophils # 0.0 Nucleated Red Blood Cells # 0.0 Sodium Level 136 Potassium Level 3.7 Chloride Level 107 Carbon Dioxide Level 22 Anion Gap 11 Blood Urea Nitrogen 9 Creatinine 0.57 L Glucose Level 122 Calcium Level 8.0 L Total Bilirubin 1.3 Direct Bilirubin 0.00 Indirect Bilirubin 1.3 H Aspartate Amino Transf (AST/SGOT) 93 H Alanine Aminotransferase (ALT/SGPT) 58 Alkaline Phosphatase 323 H Ammonia 116 H Total Protein 6.3 Albumin 2.9 L Globulin 3.40 H Albumin/Globulin Ratio 0.85 Medications Medications Current Medications Cholecalciferol (Vitamin D) 2,000 unit DAILY PO Last administered on 02/05/17 08:34; Admin Dose 2,000 UNIT; Start 02/01/17 at 09:00 Ferrous Sulfate (Ferrous Sulfate (Ec)) 325 mg DAILY PO Last administered on 08:34; Admin Dose 325 MG; Start 02/01/17 at 09:00 Folic Acid (Folic Acid) 1 mg DAILY PO Last administered on 02/05/17 08:34; Admin Dose 1 MG; Start 02/01/17 at 09:00 Thiamine HCl (Vitamin B1) 100 mg DAILY PO Last administered on 02/05/17 08:34 ; Admin Dose 100 MG; Start 02/01/17 at 09:00 Pantoprazole (Protonix Tab) 40 mg DAILY@06 PO Last administered on 02/05/17 06 :29; Admin Dose 40 MG; Start 02/01/17 at 06:00 Ondansetron HCl (Zofran Tab) 4 mg Q6H PRN PO NAUSEA AND/OR VOMITING; Start at 18:30 Acetaminophen (Tylenol Tab) 650 mg Q6H PRN PO PAIN LEVEL 1-3 OR FEVER; Start at 18:30 Acetaminophen/ Hydrocodone Bitart ([place] (5/325)) 1 tab Q6H PRN PO MODERATE PAIN LEVEL 4-6 Last administered on 02/03/17 02:16; Admin Dose 1 TAB; Start at 18:30 Docusate Sodium (Colace) 100 mg Q12H PRN PO CONSTIPATION; Start 01/31/17 at 18: 30 Enoxaparin Sodium (Lovenox) 40 mg DAILY SC Last administered on 02/02/17 11:24 ; Admin Dose 40 MG; Start 02/01/17 at 09:00; Status Future Hold Insulin Glargine (Lantus) 15 unit QHS SC Last administered on 02/04/17 21:21; Admin Dose 15 UNIT; Start 01/31/17 at 21:00 Diagnostic Test (Pha) (Accu-Chek) 1 ea 02 XX Last administered on 02/03/17 02: 16; Admin Dose 1 EA; Start 02/01/17 at 02:00 Lorazepam (Ativan) 1 mg Q6H PRN PO CONTROL WITHDRAWAL SYMPTOMS; Start 01/31/17 at 18:30; Status Future Hold Miscellaneous Information 1 ea NOTE XX ; Start 01/31/17 at 18:30 Glucose (Glutose) 15 gm Q15M PRN PO DECREASED GLUCOSE; Start 01/31/17 at 18:30 Glucose (Glutose) 22.5 gm Q15M PRN PO DECREASED GLUCOSE; Start 01/31/17 at 18: 30 Dextrose (D50w Syringe) 25 ml Q15M PRN IV DECREASED GLUCOSE; Start 01/31/17 at 18:30 Dextrose (D50w Syringe) 50 ml Q15M PRN IV DECREASED GLUCOSE; Start 01/31/17 at 18:30 Glucagon (Glucagen) 1 mg Q15M PRN IM DECREASED GLUCOSE; Start 01/31/17 at 18:30 Glucose 15 gm 15 gm Q15M PRN BUCCAL DECREASED GLUCOSE; Start 01/31/17 at 18:30 Multivitamins/ Thiamine HCl/ Folic Acid/Sodium Chloride (Mvi Adult/ Vitamin B1/ Folic Acid/NS) 1,011.2 ml @ 125 mls/ hr DAILY@09 IVPB Last administered on 08:34; Admin Dose 125 MLS/HR; Start 02/01/17 at 09:00 Chlordiazepoxide (Librium) 10 mg TID PO Last administered on 02/05/17 08:34; Admin Dose 10 MG; Start 02/02/17 at 13:00 Lorazepam (Ativan) 2 mg Q6H PRN PO Agitation; Start 02/02/17 at 14:30 Lactulose (Enulose) 20 gm Q8 PO Last administered on 02/05/17 06:28; Admin Dose 20 GM; Start 02/03/17 at 14:00 Rifaximin (Xifaxan) 550 mg BID PO ; Start 02/05/17 at 21:00 KENDY SOLOMON MD Feb 05, 2017 10:37
[2017-02-05 10:55] LABS: MAGNESIUM 1.6 mg/dl (1.7-2.5); PHOSPHORUS 3.6 mg/dl (2.5-4.9)
[2017-02-05 20:13] VITALS: BP 120/74; RESP 18
[2017-02-05] MEDS: RIFAXIMIN 550 MG TAB PO SCH (21:27)
[2017-02-05] MEDS: INSULIN GLARGINE [LANtus] 3 ML PEN SC SCH (21:29)
[2017-02-06] MEDS: ACCU-CHEK XX SCH (02:00)
[2017-02-06] MEDS: PANTOPRAZOLE (EC) 40 MG TAB PO SCH (06:02)
[2017-02-06] MEDS: LACTULOSE 30ML CUP PO SCH ×3 (06:02→21:17)
[2017-02-06 06:04] LABS: ADD SCAN DIFF NO
[2017-02-06 06:18] LABS: ABNORMAL IP MESSAGE 1; BASOPHILS % 0.8 % (0.0-2.0); EOSINOPHILS # 0.1 10^3/ul (0.0-0.5); HEMATOCRIT 31.5 % (42.0-52.0); HEMOGLOBIN 9.7 g/dl (14.0-18.0); LYMPHOCYTES % 26.1 % (15.0-51.0); MEAN CORPUSCULAR HEMOGLOBIN 26.2 pg (29.0-33.0); MEAN CORPUSCULAR HGB CONC 30.8 g/dl (32.0-37.0); MEAN CORPUSCULAR VOLUME 85.1 fl (82.0-101.0); MONOCYTE # 0.5 10^3/ul (0.3-0.9); MONOCYTES % 14.2 % (0.0-11.0); NEUTROPHIL # 2.1 10^3/ul (1.6-7.5); NEUTROPHILS % 55.4 % (39.0-77.0); WHITE BLOOD COUNT 3.7 10^3/ul (4.8-10.8)
[2017-02-06 06:25] LABS: PLATELET COUNT 37 10^3/UL (140-415)
[2017-02-06 06:51] LABS: ALBUMIN 2.8 g/dl (3.3-4.9); ALBUMIN/GLOBULIN RATIO 0.8; CREATININE 0.52 mg/dl (0.61-1.24); POTASSIUM 3.9 mmol/L (3.5-5.1); TOTAL PROTEIN 6.3 g/dl (6.1-8.1)
[2017-02-06] MEDS: INSULIN ASPART [NOVOLOG] 3 ML PEN SC SCH ×4 (08:15→20:42)
[2017-02-06 08:23] VITALS: BP 99/52; RESP 16
[2017-02-06] MEDS: MULTIVITAMINS 10 ML, THIAMINE 100 MG, FOLIC ACID 1 MG in SOD CHLORIDE 0.9% 1,000 ML IVPB SCH (08:35)
[2017-02-06] MEDS: FOLIC ACID 1 MG TAB PO SCH (08:35)
[2017-02-06] MEDS: RIFAXIMIN 550 MG TAB PO SCH ×2 (08:35→20:35)
[2017-02-06] MEDS: THIAMINE 100 MG TAB PO SCH (08:35)
[2017-02-06] MEDS: CHLORDIAZEPOXIDE 5 MG CAP PO SCH ×2 (08:35→20:35)
[2017-02-06] MEDS: CHOLECALCIFEROL 1,000 UNIT TAB PO SCH (08:35)
[2017-02-06] MEDS: FERROUS SULFATE (EC) 325 MG TAB PO SCH (08:35)
[2017-02-06 10:02] LABS: PLATELET ESTIMATE PLT APPEAR DECREASED
--- NOTE | 2017-02-06 13:04 | PN ---
Date/Time of Note Date/Time of Note DATE: 02/06/17 TIME: 13:04 Assessment/Plan VTE Prophylaxis VTE Prophylaxis Intervention: SCD's Lines/Catheters IV C[facility]ter Type (from [facility] Peripheral IV Urinary Cath still in place: No Assessment/Plan Assessment/Plan 56 yo M with alcoholism DM2 admitted for abd pain in setting of hyperglycemia and alcohol intoxication, found to have CONS bacteremia. #+blood cultures: contaminant per ID #EtOHism: outside withdrawal window #ascites: sp 3.5L para 6.16 #r scrotal hydrocele and L inguinal hernia: outpatient f/u # Type 2 diabetes mellitus. Hemoglobin A1c 11.3. Continue sliding scale insulin. Blood sugars well controlled currently. # Pancytopenia, most probably secondary to underlying liver cirrhosis. outpatient f.u # Transaminitis. Most probably secondary to underlying chronic liver disease. # Debility. Will obtain a physical therapy evaluation. SCDs only given low platelets Subjective 24 Hr Interval Summary Free Text/Dictation discharge planning in process Exam/Review of Systems Vital Signs Vitals Vital Signs Date Time Temp Pulse Resp B/P Pulse Ox O2 Delivery O2 Flow Rate FiO2 02/06/17 08:23 97.7 72 16 99/52 96 02/04/17 07:40 Nasal Cannula 2.0 Intake and Output 02/05/17 02/05/17 02/06/17 15:00 23:00 07:00 Intake Total 1880 ml 1011.2 ml Output Total 950 ml 200 ml Balance 930 ml 811.2 ml Exam nad rrr lungs clear abd soft no rashes Results Result Diagram: 02/06/17 0550 02/06/17 0550 Results 24 hrs Laboratory Tests Test 02/05/17 17:41 02/05/17 21:25 02/06/17 02:00 02/06/17 05:50 Bedside Glucose 200 238 H 226 H White Blood Count 3.7 L Red Blood Count 3.70 L Hemoglobin 9.7 L Hematocrit 31.5 L Mean Corpuscular Volume 85.1 Mean Corpuscular Hemoglobin 26.2 L Mean Corpuscular Hemoglobin Concent 30.8 L Red Cell Distribution Width 24.0 H Platelet Count 37 L Mean Platelet Volume 10.0 Neutrophils % 55.4 Lymphocytes % 26.1 Monocytes % 14.2 H Eosinophils % 3.0 Basophils % 0.8 Nucleated Red Blood Cells % 0.0 Neutrophils # 2.1 Lymphocytes # 1.0 Monocytes # 0.5 Eosinophils # 0.1 Basophils # 0.0 Nucleated Red Blood Cells # 0.0 Differential Comment AUTO w/SCAN Platelet Estimate PLT APPEAR DECREASED Sodium Level 138 Potassium Level 3.9 Chloride Level 112 H Carbon Dioxide Level 21 Anion Gap 9 Blood Urea Nitrogen 11 Creatinine 0.52 L Glucose Level 125 Calcium Level 8.0 L Total Bilirubin 1.0 Direct Bilirubin 0.00 Indirect Bilirubin 1.0 Aspartate Amino Transf (AST/SGOT) 84 H Alanine Aminotransferase (ALT/SGPT) 53 Alkaline Phosphatase 307 H Total Protein 6.3 Albumin 2.8 L Globulin 3.50 H Albumin/Globulin Ratio 0.80 Test 02/06/17 08:18 02/06/17 12:07 Bedside Glucose 110 189 Medications Medications Current Medications Cholecalciferol (Vitamin D) 2,000 unit DAILY PO Last administered on 02/06/17 08:35; Admin Dose 2,000 UNIT; Start 02/01/17 at 09:00 Ferrous Sulfate (Ferrous Sulfate (Ec)) 325 mg DAILY PO Last administered on 08:35; Admin Dose 325 MG; Start 02/01/17 at 09:00 Folic Acid (Folic Acid) 1 mg DAILY PO Last administered on 02/06/17 08:35; Admin Dose 1 MG; Start 02/01/17 at 09:00 Thiamine HCl (Vitamin B1) 100 mg DAILY PO Last administered on 02/06/17 08:35 ; Admin Dose 100 MG; Start 02/01/17 at 09:00 Pantoprazole (Protonix Tab) 40 mg DAILY@06 PO Last administered on 02/06/17 06 :02; Admin Dose 40 MG; Start 02/01/17 at 06:00 Ondansetron HCl (Zofran Tab) 4 mg Q6H PRN PO NAUSEA AND/OR VOMITING; Start at 18:30 Acetaminophen (Tylenol Tab) 650 mg Q6H PRN PO PAIN LEVEL 1-3 OR FEVER; Start at 18:30 Acetaminophen/ Hydrocodone Bitart ([place] (5/325)) 1 tab Q6H PRN PO MODERATE PAIN LEVEL 4-6 Last administered on 02/03/17 02:16; Admin Dose 1 TAB; Start at 18:30 Docusate Sodium (Colace) 100 mg Q12H PRN PO CONSTIPATION; Start 01/31/17 at 18: 30 Enoxaparin Sodium (Lovenox) 40 mg DAILY SC Last administered on 02/02/17 11:24 ; Admin Dose 40 MG; Start 02/01/17 at 09:00; Status Future Hold Insulin Glargine (Lantus) 15 unit QHS SC Last administered on 02/05/17 21:29; Admin Dose 15 UNIT; Start 01/31/17 at 21:00 Diagnostic Test (Pha) (Accu-Chek) 1 ea 02 XX Last administered on 02/03/17 02: 16; Admin Dose 1 EA; Start 02/01/17 at 02:00 Lorazepam (Ativan) 1 mg Q6H PRN PO CONTROL WITHDRAWAL SYMPTOMS; Start 01/31/17 at 18:30; Status Future Hold Miscellaneous Information 1 ea NOTE XX ; Start 01/31/17 at 18:30 Glucose (Glutose) 15 gm Q15M PRN PO DECREASED GLUCOSE; Start 01/31/17 at 18:30 Glucose (Glutose) 22.5 gm Q15M PRN PO DECREASED GLUCOSE; Start 01/31/17 at 18: 30 Dextrose (D50w Syringe) 25 ml Q15M PRN IV DECREASED GLUCOSE; Start 01/31/17 at 18:30 Dextrose (D50w Syringe) 50 ml Q15M PRN IV DECREASED GLUCOSE; Start 01/31/17 at 18:30 Glucagon (Glucagen) 1 mg Q15M PRN IM DECREASED GLUCOSE; Start 01/31/17 at 18:30 Glucose 15 gm 15 gm Q15M PRN BUCCAL DECREASED GLUCOSE; Start 01/31/17 at 18:30 Multivitamins/ Thiamine HCl/ Folic Acid/Sodium Chloride (Mvi Adult/ Vitamin B1/ Folic Acid/NS) 1,011.2 ml @ 125 mls/ hr DAILY@ IVPB Last administered on 08:35; Admin Dose 125 MLS/HR; Start 02/01/17 at 09:00 Chlordiazepoxide (Librium) 10 mg TID PO Last administered on 02/06/17 08:35; Admin Dose 10 MG; Start 02/02/17 at 13:00 Lorazepam (Ativan) 2 mg Q6H PRN PO Agitation; Start 02/02/17 at 14:30 Lactulose (Enulose) 20 gm Q8 PO Last administered on 02/06/17 06:02; Admin Dose 20 GM; Start 02/03/17 at 14:00 Rifaximin (Xifaxan) 550 mg BID PO Last administered on 02/06/17 08:35; Admin Dose 550 MG; Start 02/05/17 at 21:00 CAITLIN THAPA MD Feb 06, 2017 13:04
[2017-02-06 20:05] VITALS: BP 130/79; RESP 18
[2017-02-06] MEDS: INSULIN GLARGINE [LANtus] 3 ML PEN SC SCH (20:38)
[2017-02-07] MEDS: ACCU-CHEK XX SCH (01:09)
[2017-02-07] MEDS: PANTOPRAZOLE (EC) 40 MG TAB PO SCH (05:32)
[2017-02-07] MEDS: LACTULOSE 30ML CUP PO SCH ×3 (05:32→21:32)
[2017-02-07 06:00] LABS: ADD SCAN DIFF NO
[2017-02-07 06:14] LABS: ABNORMAL IP MESSAGE 1; EOSINOPHILS # 0.1 10^3/ul (0.0-0.5); EOSINOPHILS % 2.6 % (0.0-7.0); HEMATOCRIT 29.6 % (42.0-52.0); HEMOGLOBIN 9.3 g/dl (14.0-18.0); LYMPHOCYTES % 24.4 % (15.0-51.0); MEAN CORPUSCULAR HEMOGLOBIN 26.9 pg (29.0-33.0); MEAN CORPUSCULAR HGB CONC 31.4 g/dl (32.0-37.0); MEAN CORPUSCULAR VOLUME 85.5 fl (82.0-101.0); MEAN PLATELET VOLUME 9.7 fl (7.4-10.4); MONOCYTE # 0.7 10^3/ul (0.3-0.9); MONOCYTES % 16.7 % (0.0-11.0); NEUTROPHIL # 2.1 10^3/ul (1.6-7.5); NEUTROPHILS % 54.5 % (39.0-77.0); PLATELET COUNT 44 10^3/UL (140-415); RED BLOOD COUNT 3.46 10^6/ul (4.70-6.10); RED CELL DISTRIBUTION WIDTH 24.1 % (11.5-14.5); WHITE BLOOD COUNT 3.9 10^3/ul (4.8-10.8)
[2017-02-07 06:46] LABS: ALBUMIN 2.7 g/dl (3.3-4.9); ALBUMIN/GLOBULIN RATIO 0.75; BILIRUBIN,INDIRECT 0.9 mg/dl (0-1.1); BILIRUBIN,TOTAL 0.9 mg/dl (0.2-1.3); CALCIUM 8.2 mg/dl (8.4-10.2); CREATININE 0.47 mg/dl (0.61-1.24); POTASSIUM 3.8 mmol/L (3.5-5.1); TOTAL PROTEIN 6.3 g/dl (6.1-8.1)
[2017-02-07] MEDS: INSULIN ASPART [NOVOLOG] 3 ML PEN SC SCH ×4 (08:11→20:32)
[2017-02-07 08:21] VITALS: BP 136/85; RESP 18
[2017-02-07] MEDS: CHOLECALCIFEROL 1,000 UNIT TAB PO SCH (08:45)
[2017-02-07] MEDS: FERROUS SULFATE (EC) 325 MG TAB PO SCH (08:45)
[2017-02-07] MEDS: FOLIC ACID 1 MG TAB PO SCH (08:45)
[2017-02-07] MEDS: RIFAXIMIN 550 MG TAB PO SCH ×2 (08:45→20:27)
[2017-02-07] MEDS: CHLORDIAZEPOXIDE 5 MG CAP PO SCH (08:45)
[2017-02-07] MEDS: THIAMINE 100 MG TAB PO SCH (08:45)
--- NOTE | 2017-02-07 16:29 | PN ---
Date/Time of Note Date/Time of Note DATE: 02/07/17 TIME: 16:28 Assessment/Plan VTE Prophylaxis VTE Prophylaxis Intervention: SCD's VTE Contraindication Reason: thrombocytopenia Lines/Catheters [facility] Type (from [facility] Peripheral IV Urinary Cath still in place: No Assessment/Plan Assessment/Plan 1. Sepsis with underlying gram-positive bacteremia. contaminant - resolved - appreciate ID recs 2. Alcohol intoxication. The patient currently on a tapering dose of Librium. The patient also on a daily banana bag. 3. Alcoholic liver disease with underlying ascites. Status post paracentesis on 02/01/2017 with a drainage of 3.5 liters of serous fluid. monitor fluid imbalance, check albumin 4. Hyperammonemia. Will continue the patient on lactulose, added rifaximin - elevated - but has good cognition 5. Right scrotal hydrocele with scrotal wall thickening is seen and evaluated by general surgery. No acute surgical intervention necessary. Elevate the scrotum. 6. Left inguinal hernia. No need for any acute surgical intervention. 7. Type 2 diabetes mellitus. Hemoglobin A1c 11.3. Continue sliding scale insulin. Blood sugars well controlled currently. 8. Pancytopenia, most probably secondary to underlying liver cirrhosis. Continue to monitor blood components. Transfuse as needed. 9. Transaminitis. Most probably secondary to underlying chronic liver disease. Continue to monitor the liver function tests closely. Avoid hepatotoxic medications. 10. Debility. Will obtain a physical therapy evaluation. 11. Fluid, electrolytes and nutrition. Carbohydrate controlled diet. 12. Deep venous thrombosis prophylaxis. He was on Lovenox. However, this will be put on hold because of worsening thrombocytopenia. 13. Gastrointestinal prophylaxis. Proton pump inhibitors. PLAN: Continue inpatient care. PT evaluation - needs placement for debility/ deconditioning. Subjective 24 Hr Interval Summary Free Text/Dictation lethargy Exam/Review of Systems Vital Signs Vitals Vital Signs Date Time Temp Pulse Resp B/P Pulse Ox O2 Delivery O2 Flow Rate FiO2 02/07/17 08:21 98.6 82 18 136/85 100 02/04/17 07:40 Nasal Cannula 2.0 Intake and Output 02/06/17 02/06/17 02/07/17 15:00 23:00 07:00 Intake Total 625 ml 1170 ml Balance 625 ml 1170 ml Exam GENERAL: Adequately built male patient lying in bed in no apparent distress / lethargic / weak HEENT: Head normocephalic and atraumatic. Eyes: Anicteric sclerae. Conjunctivae clear. ENT: Nasal septum is midline. Oral mucosa is dry. NECK: Supple. No JVD noticed. RESPIRATORY: Bilaterally diminished breath sounds. No adventitious breath sounds. No use of accessory muscles of respiration. CARDIAC: Regular rate and rhythm. S1, S2. ABDOMEN: Ascites. Right lower quadrant tenderness upon palpation. GENITOURINARY: Right scrotal swelling. EXTREMITIES: No cyanosis, no clubbing, no edema. Peripheral pulses palpable. NEUROLOGIC: The patient is awake, alert and oriented. Cranial nerves are grossly intact. Results Result Diagram: 02/07/17 0536 02/07/17 0536 Results 24 hrs Laboratory Tests Test 02/06/17 17:24 02/06/17 20:24 02/07/17 01:07 02/07/17 05:36 Bedside Glucose 306 H 208 163 White Blood Count 3.9 L Red Blood Count 3.46 L Hemoglobin 9.3 L Hematocrit 29.6 L Mean Corpuscular Volume 85.5 Mean Corpuscular Hemoglobin 26.9 L Mean Corpuscular Hemoglobin Concent 31.4 L Red Cell Distribution Width 24.1 H Platelet Count 44 L Mean Platelet Volume 9.7 Neutrophils % 54.5 Lymphocytes % 24.4 Monocytes % 16.7 H Eosinophils % 2.6 Basophils % 1.0 Nucleated Red Blood Cells % 0.0 Neutrophils # 2.1 Lymphocytes # 1.0 Monocytes # 0.7 Eosinophils # 0.1 Basophils # 0.0 Nucleated Red Blood Cells # 0.0 Sodium Level 142 Potassium Level 3.8 Chloride Level 111 H Carbon Dioxide Level 24 Anion Gap 11 Blood Urea Nitrogen 10 Creatinine 0.47 L Glucose Level 125 Calcium Level 8.2 L Total Bilirubin 0.9 Direct Bilirubin 0.00 Indirect Bilirubin 0.9 Aspartate Amino Transf (AST/SGOT) 81 H Alanine Aminotransferase (ALT/SGPT) 54 Alkaline Phosphatase 329 H Total Protein 6.3 Albumin 2.7 L Globulin 3.60 H Albumin/Globulin Ratio 0.75 Test 02/07/17 08:05 02/07/17 12:00 Bedside Glucose 122 174 Medications Medications Current Medications Cholecalciferol (Vitamin D) 2,000 unit DAILY PO Last administered on 02/07/17t 08:45; Admin Dose 2,000 UNIT; Start 02/01/17 at 09:00 Ferrous Sulfate (Ferrous Sulfate (Ec)) 325 mg DAILY PO Last administered on 08:45; Admin Dose 325 MG; Start 02/01/17 at 09:00 Folic Acid (Folic Acid) 1 mg DAILY PO Last administered on 02/07/17 08:45; Admin Dose 1 MG; Start 02/01/17 at 09:00 Thiamine HCl (Vitamin B1) 100 mg DAILY PO Last administered on 02/07/17 08:45 ; Admin Dose 100 MG; Start 02/01/17 at 09:00 Pantoprazole (Protonix Tab) 40 mg DAILY@06 PO Last administered on 02/07/17 05 :32; Admin Dose 40 MG; Start 02/01/17 at 06:00 Ondansetron HCl (Zofran Tab) 4 mg Q6H PRN PO NAUSEA AND/OR VOMITING; Start at 18:30 Acetaminophen (Tylenol Tab) 650 mg Q6H PRN PO PAIN LEVEL 1-3 OR FEVER; Start at 18:30 Acetaminophen/ Hydrocodone Bitart ([place] (5/325)) 1 tab Q6H PRN PO MODERATE PAIN LEVEL 4-6 Last administered on 02/03/17 02:16; Admin Dose 1 TAB; Start at 18:30 Docusate Sodium (Colace) 100 mg Q12H PRN PO CONSTIPATION; Start 01/31/17 at 18: 30 Enoxaparin Sodium (Lovenox) 40 mg DAILY SC Last administered on 02/02/17 11:24 ; Admin Dose 40 MG; Start 02/01/17 at 09:00; Status Future Hold Insulin Glargine (Lantus) 15 unit QHS SC Last administered on 02/06/17 20:38; Admin Dose 15 UNIT; Start 01/31/17 at 21:00 Diagnostic Test (Pha) (Accu-Chek) 1 ea 02 XX Last administered on 02/03/17 02: 16; Admin Dose 1 EA; Start 02/01/17 at 02:00 Lorazepam (Ativan) 1 mg Q6H PRN PO CONTROL WITHDRAWAL SYMPTOMS; Start 01/31/17 at 18:30; Status Future Hold Miscellaneous Information 1 ea NOTE XX ; Start 01/31/17 at 18:30 Glucose (Glutose) 15 gm Q15M PRN PO DECREASED GLUCOSE; Start 01/31/17 at 18:30 Glucose (Glutose) 22.5 gm Q15M PRN PO DECREASED GLUCOSE; Start 01/31/17 at 18: 30 Dextrose (D50w Syringe) 25 ml Q15M PRN IV DECREASED GLUCOSE; Start 01/31/17 at 18:30 Dextrose (D50w Syringe) 50 ml Q15M PRN IV DECREASED GLUCOSE; Start 01/31/17 at 18:30 Glucagon (Glucagen) 1 mg Q15M PRN IM DECREASED GLUCOSE; Start 01/31/17 at 18:30 Glucose (Glutose) 15 gm Q15M PRN BUCCAL DECREASED GLUCOSE; Start 01/31/17 at 18 :30 Lorazepam (Ativan) 2 mg Q6H PRN PO Agitation; Start 02/02/17 at 14:30 Lactulose (Enulose) 20 gm Q8 PO Last administered on 02/07/17 13:35; Admin Dose 20 GM; Start 02/03/17 at 14:00 Rifaximin (Xifaxan) 550 mg BID PO Last administered on 02/07/17 08:45; Admin Dose 550 MG; Start 02/05/17 at 21:00 KIYA KENYON Feb 07, 2017 16:29
[2017-02-07] MEDS: FUROSEMIDE 40 MG INJ IV SCH (16:57)
[2017-02-07] MEDS: ALBUMIN HUMAN 25% 100 ML IV SCH (17:05)
[2017-02-07 20:13] VITALS: BP 139/94; RESP 20
[2017-02-07] MEDS: INSULIN GLARGINE [LANtus] 3 ML PEN SC SCH (20:33)
[2017-02-08] MEDS: ACCU-CHEK XX SCH (01:57)
[2017-02-08] MEDS: LACTULOSE 30ML CUP PO SCH ×3 (05:34→21:39)
[2017-02-08] MEDS: PANTOPRAZOLE (EC) 40 MG TAB PO SCH (05:34)
[2017-02-08 06:14] LABS: ADD SCAN DIFF NO
[2017-02-08 06:20] LABS: ABNORMAL IP MESSAGE 1; BASOPHILS % 0.9 % (0.0-2.0); EOSINOPHILS # 0.1 10^3/ul (0.0-0.5); EOSINOPHILS % 3.3 % (0.0-7.0); HEMATOCRIT 29.1 % (42.0-52.0); HEMOGLOBIN 9.2 g/dl (14.0-18.0); LYMPHOCYTES # 0.8 10^3/ul (0.8-2.9); LYMPHOCYTES % 25.2 % (15.0-51.0); MEAN CORPUSCULAR HEMOGLOBIN 26.9 pg (29.0-33.0); MEAN CORPUSCULAR HGB CONC 31.6 g/dl (32.0-37.0); MEAN CORPUSCULAR VOLUME 85.1 fl (82.0-101.0); MEAN PLATELET VOLUME 10.1 fl (7.4-10.4); MONOCYTE # 0.6 10^3/ul (0.3-0.9); MONOCYTES % 17.3 % (0.0-11.0); NEUTROPHIL # 1.7 10^3/ul (1.6-7.5); NEUTROPHILS % 52.4 % (39.0-77.0); PLATELET COUNT 50 10^3/UL (140-415); RED BLOOD COUNT 3.42 10^6/ul (4.70-6.10); RED CELL DISTRIBUTION WIDTH 23.8 % (11.5-14.5); WHITE BLOOD COUNT 3.3 10^3/ul (4.8-10.8)
[2017-02-08 06:54] LABS: ALBUMIN/GLOBULIN RATIO 0.88; BILIRUBIN,INDIRECT 1.3 mg/dl (0-1.1); BILIRUBIN,TOTAL 1.3 mg/dl (0.2-1.3); CALCIUM 8.5 mg/dl (8.4-10.2); CREATININE 0.55 mg/dl (0.61-1.24); POTASSIUM 3.5 mmol/L (3.5-5.1); TOTAL PROTEIN 6.4 g/dl (6.1-8.1)
[2017-02-08 08:00] VITALS: BP 138/85; RESP 20
[2017-02-08] MEDS: INSULIN ASPART [NOVOLOG] 3 ML PEN SC SCH ×4 (08:21→21:42)
[2017-02-08] MEDS: FOLIC ACID 1 MG TAB PO SCH (09:00)
[2017-02-08] MEDS ORDERED: NITROGLYCERIN (SL) 0.4 MG TAB ONE (10:08)
[2017-02-08] MEDS: NITROGLYCERIN (SL) 0.4 MG TAB SL PRN ×2 (10:11→10:43)
[2017-02-08] MEDS: THIAMINE 100 MG TAB PO SCH (10:44)
[2017-02-08] MEDS: FERROUS SULFATE (EC) 325 MG TAB PO SCH (10:44)
[2017-02-08] MEDS: RIFAXIMIN 550 MG TAB PO SCH ×2 (10:44→21:39)
[2017-02-08] MEDS: FUROSEMIDE 40 MG INJ IV SCH (10:44)
[2017-02-08] MEDS: SPIRONOLACTONE 25 MG TAB PO SCH (10:45)
[2017-02-08] MEDS: CHOLECALCIFEROL 1,000 UNIT TAB PO SCH (10:45)
[2017-02-08] MEDS ORDERED: LORAZEPAM 2 MG INJ IV ONE (11:30)
[2017-02-08] MEDS ORDERED: morphine 4 MG/ML VIAL IV PRN (11:30)
[2017-02-08] MEDS ORDERED: HYDROCODONE/APAP (5/325) TAB PO PRN (11:30)
--- NOTE | 2017-02-08 11:44 | PN ---
Date/Time of Note Date/Time of Note DATE: 02/08/17 TIME: 11:42 Assessment/Plan VTE Prophylaxis VTE Prophylaxis Intervention: SCD's Lines/Catheters [facility] (from [facility] Peripheral IV Urinary Cath still in place: No Assessment/Plan Assessment/Plan 1. Sepsis with underlying gram-positive bacteremia. contaminant - resolved - appreciate ID recs 2. Alcohol intoxication. The patient currently on a tapering dose of Librium. The patient also on a daily banana bag. 3. Alcoholic liver disease with underlying ascites. Status post paracentesis on 02/01/2017 with a drainage of 3.5 liters of serous fluid. monitor fluid imbalance, check albumin 4. Hyperammonemia. Will continue the patient on lactulose, added rifaximin - elevated - but has good cognition 5. Right scrotal hydrocele with scrotal wall thickening is seen and evaluated by general surgery. No acute surgical intervention necessary. Elevate the scrotum. 6. Left inguinal hernia. No need for any acute surgical intervention. 7. Type 2 diabetes mellitus. Hemoglobin A1c 11.3. Continue sliding scale insulin. Blood sugars well controlled currently. 8. Pancytopenia, most probably secondary to underlying liver cirrhosis. Continue to monitor blood components. Transfuse as needed. 9. Transaminitis. Most probably secondary to underlying chronic liver disease. Continue to monitor the liver function tests closely. Avoid hepatotoxic medications. 10. Debility. Will obtain a physical therapy evaluation. 11. Fluid, electrolytes and nutrition. Carbohydrate controlled diet. 12. Deep venous thrombosis prophylaxis. SCDS 2/2 thrombocytopenia 13. Gastrointestinal prophylaxis. Proton pump inhibitors. PLAN: Ongoing diuresis with lasix and albumin Aggressive PT and placement if we can get a place Per review with surgery, scrotal swelling is more fluid than gut. Subjective 24 Hr Interval Summary Free Text/Dictation had c/o chest pain prior to my review, but when I saw, he had received [place] and reported resolution in pain. Exam/Review of Systems Vital Signs Vitals Vital Signs Date Time Temp Pulse Resp B/P Pulse Ox O2 Delivery O2 Flow Rate FiO2 02/07/17 20:13 99.0 20 139/94 98 02/07/17 08:21 82 02/04/17 07:40 Nasal Cannula 2.0 Intake and Output 02/07/17 02/07/17 02/08/17 15:00 23:00 07:00 Intake Total 1020 ml Output Total 600 ml 1400 ml Balance 420 ml -1400 ml Exam GENERAL: Adequately built male patient lying in bed in no apparent distress / less lethargic HEENT: Head normocephalic and atraumatic. Eyes: Anicteric sclerae. Conjunctivae clear. ENT: Nasal septum is midline. Oral mucosa is dry. NECK: Supple. No JVD noticed. RESPIRATORY: Bilaterally diminished breath sounds. No adventitious breath sounds. No use of accessory muscles of respiration. CARDIAC: Regular rate and rhythm. S1, S2. ABDOMEN: Ascites. Right lower quadrant tenderness upon palpation. GENITOURINARY: Right scrotal swelling. EXTREMITIES: No cyanosis, no clubbing, no edema. Peripheral pulses palpable. NEUROLOGIC: The patient is awake, alert and oriented. Cranial nerves are grossly intact. Results Result Diagram: 02/08/17 0455 02/08/17 0455 Results 24 hrs Laboratory Tests Test 02/07/17 12:00 02/07/17 17:07 02/07/17 20:28 02/08/17 01:26 Bedside Glucose 174 151 266 H 290 H Test 02/08/17 04:55 02/08/17 08:18 02/08/17 10:30 White Blood Count 3.3 L Red Blood Count 3.42 L Hemoglobin 9.2 L Hematocrit 29.1 L Mean Corpuscular Volume 85.1 Mean Corpuscular Hemoglobin 26.9 L Mean Corpuscular Hemoglobin Concent 31.6 L Red Cell Distribution Width 23.8 H Platelet Count 50 L Mean Platelet Volume 10.1 Neutrophils % 52.4 Lymphocytes % 25.2 Monocytes % 17.3 H Eosinophils % 3.3 Basophils % 0.9 Nucleated Red Blood Cells % 0.0 Neutrophils # 1.7 Lymphocytes # 0.8 Monocytes # 0.6 Eosinophils # 0.1 Basophils # 0.0 Nucleated Red Blood Cells # 0.0 Sodium Level 140 Potassium Level 3.5 Chloride Level 105 Carbon Dioxide Level 27 Anion Gap 12 Blood Urea Nitrogen 11 Creatinine 0.55 L Glucose Level 158 Calcium Level 8.5 Total Bilirubin 1.3 Direct Bilirubin 0.00 Indirect Bilirubin 1.3 H Aspartate Amino Transf (AST/SGOT) 68 H Alanine Aminotransferase (ALT/SGPT) 53 Alkaline Phosphatase 287 H Total Protein 6.4 Albumin 3.0 L Globulin 3.40 H Albumin/Globulin Ratio 0.88 Bedside Glucose 151 Troponin I < 0.012 Medications Medications Current Medications Cholecalciferol (Vitamin D) 2,000 unit DAILY PO Last administered on 02/08/17 10:45; Admin Dose 2,000 UNIT; Start 02/01/17 at 09:00 Ferrous Sulfate (Ferrous Sulfate (Ec)) 325 mg DAILY PO Last administered on 10:44; Admin Dose 325 MG; Start 02/01/17 at 09:00 Folic Acid (Folic Acid) 1 mg DAILY PO Last administered on 02/08/17 09:00; Admin Dose 1 MG; Start 02/01/17 at 09:00 Thiamine HCl (Vitamin B1) 100 mg DAILY PO Last administered on 02/08/17 10:44 ; Admin Dose 100 MG; Start 02/01/17 at 09:00 Pantoprazole (Protonix Tab) 40 mg DAILY@06 PO Last administered on 02/08/17 05 :34; Admin Dose 40 MG; Start 02/01/17 at 06:00 Ondansetron HCl (Zofran Tab) 4 mg Q6H PRN PO NAUSEA AND/OR VOMITING; Start at 18:30 Acetaminophen (Tylenol Tab) 650 mg Q6H PRN PO PAIN LEVEL 1-3 OR FEVER; Start at 18:30 Docusate Sodium (Colace) 100 mg Q12H PRN PO CONSTIPATION; Start 01/31/17 at 18: 30 Enoxaparin Sodium (Lovenox) 40 mg DAILY SC Last administered on 02/02/17 11:24 ; Admin Dose 40 MG; Start 02/01/17 at 09:00; Status Future Hold Insulin Glargine (Lantus) 15 unit QHS SC Last administered on 02/07/17 20:33; Admin Dose 15 UNIT; Start 01/31/17 at 21:00 Diagnostic Test (Pha) (Accu-Chek) 1 ea 02 XX Last administered on 02/03/17 02: 16; Admin Dose 1 EA; Start 02/01/17 at 02:00 Lorazepam (Ativan) 1 mg Q6H PRN PO CONTROL WITHDRAWAL SYMPTOMS; Start 01/31/17 at 18:30; Status Future Hold Miscellaneous Information 1 ea NOTE XX ; Start 01/31/17 at 18:30 Glucose (Glutose) 15 gm Q15M PRN PO DECREASED GLUCOSE; Start 01/31/17 at 18:30 Glucose (Glutose) 22.5 gm Q15M PRN PO DECREASED GLUCOSE; Start 01/31/17 at 18: 30 Dextrose (D50w Syringe) 25 ml Q15M PRN IV DECREASED GLUCOSE; Start 01/31/17 at 18:30 Dextrose (D50w Syringe) 50 ml Q15M PRN IV DECREASED GLUCOSE; Start 01/31/17 at 18:30 Glucagon (Glucagen) 1 mg Q15M PRN IM DECREASED GLUCOSE; Start 01/31/17 at 18:30 Glucose (Glutose) 15 gm Q15M PRN BUCCAL DECREASED GLUCOSE; Start 01/31/17 at 18 :30 Lorazepam (Ativan) 2 mg Q6H PRN PO Agitation; Start 02/02/17 at 14:30 Lactulose (Enulose) 20 gm Q8 PO Last administered on 02/08/17 05:34; Admin Dose 20 GM; Start 02/03/17 at 14:00 Rifaximin 550 mg 550 mg BID PO Last administered on 02/08/17 10:44; Admin Dose 550 MG; Start 02/05/17 at 21:00 Albumin Human (Albumin Human 25%) 100 ml @ 100 mls/hr ONCE IV Last administered on 02/07/17 17:05; Admin Dose 100 MLS/HR; Start 02/07/17 at 16:30 ; Stop 02/10/17 at 16:29 Furosemide (Lasix) 40 mg DAILY IV Last administered on 02/08/17 10:44; Admin Dose 40 MG; Start 02/07/17 at 16:30 Spironolactone (Aldactone) 25 mg DAILY PO Last administered on 02/08/17 10:45 ; Admin Dose 25 MG; Start 02/08/17 at 09:00 Nitroglycerin (Nitroglycerin (Sl Tab) 0.4 Mg) 1 tab Q5M PRN SL ANGINA Last administered on 02/08/17 10:43; Admin Dose 1 TAB; Start 02/08/17 at 10:00 Morphine Sulfate (morphine) 3 mg Q4H PRN IV SEVERE PAIN LEVEL 7-10; Start 02/08 at 11:30 Acetaminophen/ Hydrocodone Bitart ([place] (5/325)) 1 tab Q6H PRN PO PAIN LEVEL 6 -10; Start 02/08/17 at 11:30 KIYA KENYON Feb 08, 2017 11:44
[2017-02-08] MEDS: ALBUMIN HUMAN 25% 100 ML IV SCH (18:55)
[2017-02-08 20:08] VITALS: BP 134/82; RESP 18
[2017-02-08] MEDS: INSULIN GLARGINE [LANtus] 3 ML PEN SC SCH (21:51)
[2017-02-09] MEDS: ACCU-CHEK XX SCH (02:00)
[2017-02-09] MEDS: LACTULOSE 30ML CUP PO SCH ×3 (05:57→21:28)
[2017-02-09] MEDS: PANTOPRAZOLE (EC) 40 MG TAB PO SCH (05:57)
[2017-02-09] MEDS: INSULIN ASPART [NOVOLOG] 3 ML PEN SC SCH ×4 (08:23→20:32)
[2017-02-09 08:28] VITALS: BP 127/81; RESP 20
[2017-02-09] MEDS: RIFAXIMIN 550 MG TAB PO SCH ×2 (08:32→20:23)
[2017-02-09] MEDS: SPIRONOLACTONE 25 MG TAB PO SCH (08:32)
[2017-02-09] MEDS: CHOLECALCIFEROL 1,000 UNIT TAB PO SCH (08:32)
[2017-02-09] MEDS: FUROSEMIDE 40 MG INJ IV SCH (08:33)
[2017-02-09] MEDS: FERROUS SULFATE (EC) 325 MG TAB PO SCH (08:34)
[2017-02-09] MEDS: THIAMINE 100 MG TAB PO SCH (08:34)
[2017-02-09] MEDS: FOLIC ACID 1 MG TAB PO SCH (08:34)
--- NOTE | 2017-02-09 11:49 | PN ---
Date/Time of Note Date/Time of Note DATE: 02/09/17 TIME: 11:44 Assessment/Plan VTE Prophylaxis VTE Prophylaxis Intervention: SCD's Lines/Catheters IV Catheter Type (from [facility]): Peripheral IV Urinary Cath still in place: No Assessment/Plan Assessment/Plan 1. Sepsis with underlying gram-positive bacteremia. contaminant - resolved - appreciate ID recs 2. Alcohol intoxication. on banana bag and librium 3. ESLD with recurrent ascites, s/p paracentesis on 02/01/17 4. Hyperammonemia on lactulose, rifaximin 5. Right scrotal hydrocele with scrotal wall thickening is seen and evaluated by general surgery. No acute surgical intervention necessary. Elevate the scrotum. 6. Left inguinal hernia. No need for any acute surgical intervention. 7. Type 2 diabetes mellitus. Hemoglobin A1c 11.3. Continue sliding scale insulin. Blood sugars well controlled currently. 8. Pancytopenia, most probably secondary to underlying liver cirrhosis. Continue to monitor blood components. Transfuse as needed. 9. Transaminitis. Most probably secondary to underlying chronic liver disease. Continue to monitor the liver function tests closely. Avoid hepatotoxic medications. 10. Debility. Will obtain a physical therapy evaluation. 11. Fluid, electrolytes and nutrition. Carbohydrate controlled diet. 12. Deep venous thrombosis prophylaxis. SCDS 2/2 thrombocytopenia 13. Gastrointestinal prophylaxis. Proton pump inhibitors. PLAN: s/p lasix + albumin for diureiss, now change lasix to 40mg po daily continue spironolactone need SNF placement for final d/c planning Subjective 24 Hr Interval Summary Free Text/Dictation pt is little confused, no BM for 2 days Exam/Review of Systems Vital Signs Vitals Vital Signs Date Time Temp Pulse Resp B/P Pulse Ox O2 Delivery O2 Flow Rate FiO2 02/09/17 08:28 98.7 80 20 127/81 98 Intake and Output 02/08/17 02/08/17 02/09/17 15:00 23:00 07:00 Intake Total 1630 ml 250 ml Output Total 500 ml Balance 1130 ml 250 ml Exam Constitutional: alert, other (confused ) Head: normocephalic ENMT: nl external ears & nose Neck: supple Respiratory: clear to auscultation Cardiovascular: regular rate and rhythm Gastrointestinal: soft Musculoskeletal: nl extremities to inspection Extremities: normal pulses Results Result Diagram: 02/08/17 0455 02/08/17 0455 Results 24 hrs Laboratory Tests Test 02/08/17 12:13 02/08/17 13:13 02/08/17 14:11 02/08/17 17:26 Bedside Glucose 295 H 257 H 295 H 311 H Test 02/08/17 17:34 02/08/17 21:37 02/09/17 02:06 02/09/17 08:07 Bedside Glucose 331 H 280 H 212 172 Medications Medications Current Medications Cholecalciferol (Vitamin D) 2,000 unit DAILY PO Last administered on 02/09/17 08:32; Admin Dose 2,000 UNIT; Start 02/01/17 at 09:00 Ferrous Sulfate (Ferrous Sulfate (Ec)) 325 mg DAILY PO Last administered on 08:34; Admin Dose 325 MG; Start 02/01/17 at 09:00 Folic Acid (Folic Acid) 1 mg DAILY PO Last administered on 02/09/17 08:34; Admin Dose 1 MG; Start 02/01/17 at 09:00 Thiamine HCl (Vitamin B1) 100 mg DAILY PO Last administered on 02/09/17 08:34 ; Admin Dose 100 MG; Start 02/01/17 at 09:00 Pantoprazole (Protonix Tab) 40 mg DAILY@06 PO Last administered on 02/09/17 05 :57; Admin Dose 40 MG; Start 02/01/17 at 06:00 Ondansetron HCl (Zofran Tab) 4 mg Q6H PRN PO NAUSEA AND/OR VOMITING; Start at 18:30 Acetaminophen (Tylenol Tab) 650 mg Q6H PRN PO PAIN LEVEL 1-3 OR FEVER; Start at 18:30 Docusate Sodium (Colace) 100 mg Q12H PRN PO CONSTIPATION; Start 01/31/17 at 18: 30 Enoxaparin Sodium (Lovenox) 40 mg DAILY SC Last administered on 02/02/17 11:24 ; Admin Dose 40 MG; Start 02/01/17 at 09:00; Status Future Hold Insulin Glargine (Lantus) 15 unit QHS SC Last administered on 02/08/17 21:51; Admin Dose 15 UNIT; Start 01/31/17 at 21:00 Diagnostic Test (Pha) (Accu-Chek) 1 ea 02 XX Last administered on 02/09/17 02: 00; Admin Dose 1 EA; Start 02/01/17 at 02:00 Lorazepam (Ativan) 1 mg Q6H PRN PO CONTROL WITHDRAWAL SYMPTOMS; Start 01/31/17 at 18:30; Status Future Hold Miscellaneous Information 1 ea NOTE XX ; Start 01/31/17 at 18:30 Glucose (Glutose) 15 gm Q15M PRN PO DECREASED GLUCOSE; Start 01/31/17 at 18:30 Glucose (Glutose) 22.5 gm Q15M PRN PO DECREASED GLUCOSE; Start 01/31/17 at 18: 30 Dextrose (D50w Syringe) 25 ml Q15M PRN IV DECREASED GLUCOSE; Start 01/31/17 at 18:30 Dextrose (D50w Syringe) 50 ml Q15M PRN IV DECREASED GLUCOSE; Start 01/31/17 at 18:30 Glucagon (Glucagen) 1 mg Q15M PRN IM DECREASED GLUCOSE; Start 01/31/17 at 18:30 Glucose (Glutose) 15 gm Q15M PRN BUCCAL DECREASED GLUCOSE; Start 01/31/17 at 18 :30 Lorazepam (Ativan) 2 mg Q6H PRN PO Agitation; Start 02/02/17 at 14:30 Lactulose (Enulose) 20 gm Q8 PO Last administered on 02/09/17 05:57; Admin Dose 20 GM; Start 02/03/17 at 14:00 Rifaximin 550 mg 550 mg BID PO Last administered on 02/09/17 08:32; Admin Dose 550 MG; Start 02/05/17 at 21:00 Albumin Human (Albumin Human 25%) 100 ml @ 100 mls/hr ONCE IV Last administered on 02/08/17 18:55; Admin Dose 100 MLS/HR; Start 02/07/17 at 16:30 ; Stop 02/10/17 at 16:29 Furosemide (Lasix) 40 mg DAILY IV Last administered on 02/09/17 08:33; Admin Dose 40 MG; Start 02/07/17 at 16:30 Spironolactone (Aldactone) 25 mg DAILY PO Last administered on 02/09/17 08:32 ; Admin Dose 25 MG; Start 02/08/17 at 09:00 Nitroglycerin (Nitroglycerin (Sl Tab) 0.4 Mg) 1 tab Q5M PRN SL ANGINA Last administered on 02/08/17 10:43; Admin Dose 1 TAB; Start 02/08/17 at 10:00 Morphine Sulfate (morphine) 3 mg Q4H PRN IV SEVERE PAIN LEVEL 7-10 Last administered on 02/08/17 13:20; Admin Dose 3 MG; Start 02/08/17 at 11:30 Acetaminophen/ Hydrocodone Bitart ([place] (5/325)) 1 tab Q6H PRN PO PAIN LEVEL 6 -10 Last administered on 02/09/17 10:33; Admin Dose 1 TAB; Start 02/08/17 at 11 :30 JENI PATRICIA MD Feb 09, 2017 11:49
[2017-02-09] MEDS: ALBUMIN HUMAN 25% 100 ML IV SCH (16:44)
[2017-02-09 20:14] VITALS: BP_SYST 107; BP_SYST 126; BP_DIAS 56; BP_DIAS 79; PULSE 89; RESP 18; RESP 20
[2017-02-09] MEDS: INSULIN GLARGINE [LANtus] 3 ML PEN SC SCH (20:24)
[2017-02-10] MEDS: ACCU-CHEK XX SCH (01:47)
[2017-02-10] MEDS: PANTOPRAZOLE (EC) 40 MG TAB PO SCH (05:24)
[2017-02-10] MEDS: LACTULOSE 30ML CUP PO SCH ×3 (05:24→21:10)
[2017-02-10 05:41] LABS: ADD SCAN DIFF NO
[2017-02-10 05:53] LABS: ABNORMAL IP MESSAGE 1; BASOPHIL # 0.1 10^3/ul (0.0-0.1); BASOPHILS % 1.3 % (0.0-2.0); EOSINOPHILS # 0.1 10^3/ul (0.0-0.5); EOSINOPHILS % 2.3 % (0.0-7.0); HEMOGLOBIN 9.4 g/dl (14.0-18.0); LYMPHOCYTES # 1.6 10^3/ul (0.8-2.9); LYMPHOCYTES % 40.6 % (15.0-51.0); MEAN CORPUSCULAR HEMOGLOBIN 26.9 pg (29.0-33.0); MEAN CORPUSCULAR HGB CONC 31.3 g/dl (32.0-37.0); MEAN CORPUSCULAR VOLUME 85.7 fl (82.0-101.0); MEAN PLATELET VOLUME 9.6 fl (7.4-10.4); MONOCYTE # 0.5 10^3/ul (0.3-0.9); NEUTROPHIL # 1.7 10^3/ul (1.6-7.5); PLATELET COUNT 72 10^3/UL (140-415); RED CELL DISTRIBUTION WIDTH 24.2 % (11.5-14.5); WHITE BLOOD COUNT 3.9 10^3/ul (4.8-10.8)
[2017-02-10 06:13] LABS: INR 1.28; PROTIME 16.1 Sec (12.2-14.2); PT RATIO 1.3
[2017-02-10 06:14] LABS: PARTIAL THROMBOPLASTIN TIME 30.4 Sec (25.0-35.0)
[2017-02-10 06:27] LABS: ALBUMIN 3.8 g/dl (3.3-4.9); ALBUMIN/GLOBULIN RATIO 1.15; CALCIUM 8.7 mg/dl (8.4-10.2); CREATININE 0.58 mg/dl (0.61-1.24); POTASSIUM 3.1 mmol/L (3.5-5.1); TOTAL PROTEIN 7.1 g/dl (6.1-8.1)
[2017-02-10 08:01] VITALS: BP 131/72; RESP 18
[2017-02-10] MEDS: INSULIN ASPART [NOVOLOG] 3 ML PEN SC SCH ×4 (08:15→21:20)
[2017-02-10] MEDS: CHOLECALCIFEROL 1,000 UNIT TAB PO SCH (08:50)
[2017-02-10] MEDS: FUROSEMIDE 40 MG TAB PO SCH (08:50)
[2017-02-10] MEDS: THIAMINE 100 MG TAB PO SCH (08:50)
[2017-02-10] MEDS: FERROUS SULFATE (EC) 325 MG TAB PO SCH (08:50)
[2017-02-10] MEDS: SPIRONOLACTONE 25 MG TAB PO SCH (08:50)
[2017-02-10] MEDS: RIFAXIMIN 550 MG TAB PO SCH ×2 (08:50→21:10)
[2017-02-10] MEDS: FOLIC ACID 1 MG TAB PO SCH (08:50)
[2017-02-10] MEDS ORDERED: POTASSIUM CHLORIDE (SR) 20 MEQ TAB PO STA (11:27)
--- NOTE | 2017-02-10 11:33 | PN ---
Date/Time of Note Date/Time of Note DATE: 02/10/17 TIME: 11:29 Assessment/Plan VTE Prophylaxis VTE Prophylaxis Intervention: SCD's Lines/Catheters [facility] Type (from [facility]): Peripheral IV Urinary Cath still in place: No Assessment/Plan Chief Complaint/Hosp Course 1. Sepsis with underlying gram-positive bacteremia. Source of infection is unclear. Repeat blood cultures have been negative. Infectious disease following. The patient has been taken off antibiotics since there is no definite evidence of a source of infection. 2. Alcohol intoxication. S/P Librium taper. The patient also on a daily banana bag. 3. Alcoholic liver disease with underlying ascites. Status post paracentesis on 02/01/2017 with a drainage of 3.5 liters of serous fluid. 4. Hyperammonemia. Will continue the patient on lactulose. 5. Right scrotal hydrocele with scrotal wall thickening is seen and evaluated by general surgery. No acute surgical intervention necessary. Elevate the scrotum. 6. Left inguinal hernia. No need for any acute surgical intervention. 7. Type 2 diabetes mellitus. Hemoglobin A1c 11.3. Continue sliding scale insulin. Blood sugars well controlled currently. 8. Pancytopenia, most probably secondary to underlying liver cirrhosis. Continue to monitor blood components. Transfuse as needed. 9. Transaminitis. Most probably secondary to underlying chronic liver disease. Continue to monitor the liver function tests closely. Avoid hepatotoxic medications. 10. Debility. S/P physical therapy evaluation. PT recommending SNF placement. 11. Fluid, electrolytes and nutrition. Carbohydrate controlled diet. 12. Deep venous thrombosis prophylaxis. He was on Lovenox. However, this was put on hold because of worsening thrombocytopenia. 13. Gastrointestinal prophylaxis. Proton pump inhibitors. PLAN: Continue inpatient care. The patient has been off antibiotics as per infectious diseases. Will monitor for any fevers. Await placement. Replete potassium. Case was discussed with Dr. Resendiz. Problems: Subjective 24 Hr Interval Summary Free Text/Dictation Vital signs stable. Exam/Review of Systems Vital Signs Vitals Vital Signs Date Time Temp Pulse Resp B/P Pulse Ox O2 Delivery O2 Flow Rate FiO2 02/10/17 08:01 98.2 89 18 131/72 94 02/09/17 20:14 Room Air Intake and Output 02/09/17 02/09/17 02/10/17 15:00 23:00 07:00 Intake Total 1000 ml 250 ml Output Total 1200 ml 525 ml Balance -200 ml -275 ml Exam GENERAL: Adequately built male patient lying in bed in no apparent distress. HEENT: Head normocephalic and atraumatic. Eyes: Anicteric sclerae. Conjunctivae clear. ENT: Nasal septum is midline. Oral mucosa is dry. NECK: Supple. No JVD noticed. RESPIRATORY: Bilaterally diminished breath sounds. No adventitious breath sounds. No use of accessory muscles of respiration. CARDIAC: Regular rate and rhythm. S1, S2. ABDOMEN: Ascites. Right lower quadrant tenderness upon palpation. GENITOURINARY: Right scrotal swelling. EXTREMITIES: No cyanosis, no clubbing, no edema. Peripheral pulses palpable. NEUROLOGIC: The patient is awake, alert and oriented. Cranial nerves are grossly intact. Results Result Diagram: 02/10/17 0506 02/10/17 0506 Results 24 hrs Laboratory Tests Test 02/09/17 12:14 02/09/17 12:30 02/09/17 17:16 02/09/17 20:22 Bedside Glucose 328 H 281 H 203 Ammonia 80 H Test 02/10/17 01:44 02/10/17 05:06 02/10/17 08:48 Bedside Glucose 148 111 White Blood Count 3.9 L Red Blood Count 3.50 L Hemoglobin 9.4 L Hematocrit 30.0 L Mean Corpuscular Volume 85.7 Mean Corpuscular Hemoglobin 26.9 L Mean Corpuscular Hemoglobin Concent 31.3 L Red Cell Distribution Width 24.2 H Platelet Count 72 #L Mean Platelet Volume 9.6 Neutrophils % 43.0 Lymphocytes % 40.6 Monocytes % 12.0 H Eosinophils % 2.3 Basophils % 1.3 Nucleated Red Blood Cells % 0.0 Neutrophils # 1.7 Lymphocytes # 1.6 Monocytes # 0.5 Eosinophils # 0.1 Basophils # 0.1 Nucleated Red Blood Cells # 0.0 Prothrombin Time 16.1 H Prothrombin Time Ratio 1.3 INR International Normalized Ratio 1.28 Activated Partial Thromboplast Time 30.4 Sodium Level 140 Potassium Level 3.1 L Chloride Level 103 Carbon Dioxide Level 27 Anion Gap 13 Blood Urea Nitrogen 12 Creatinine 0.58 L Glucose Level 98 Calcium Level 8.7 Total Bilirubin 1.0 Direct Bilirubin 0.00 Indirect Bilirubin 1.0 Aspartate Amino Transf (AST/SGOT) 72 H Alanine Aminotransferase (ALT/SGPT) 52 Alkaline Phosphatase 292 H Ammonia 58 H Total Protein 7.1 Albumin 3.8 Globulin 3.30 H Albumin/Globulin Ratio 1.15 Medications Medications Current Medications Cholecalciferol (Vitamin D) 2,000 unit DAILY PO Last administered on 02/10/17 08:50; Admin Dose 2,000 UNIT; Start 02/01/17 at 09:00 Ferrous Sulfate (Ferrous Sulfate (Ec)) 325 mg DAILY PO Last administered on 08:50; Admin Dose 325 MG; Start 02/01/17 at 09:00 Folic Acid (Folic Acid) 1 mg DAILY PO Last administered on 02/10/17 08:50; Admin Dose 1 MG; Start 02/01/17 at 09:00 Thiamine HCl (Vitamin B1) 100 mg DAILY PO Last administered on 02/10/17 08:50 ; Admin Dose 100 MG; Start 02/01/17 at 09:00 Pantoprazole (Protonix Tab) 40 mg DAILY@06 PO Last administered on 02/10/17 05 :24; Admin Dose 40 MG; Start 02/01/17 at 06:00 Ondansetron HCl (Zofran Tab) 4 mg Q6H PRN PO NAUSEA AND/OR VOMITING; Start at 18:30 Acetaminophen (Tylenol Tab) 650 mg Q6H PRN PO PAIN LEVEL 1-3 OR FEVER; Start at 18:30 Docusate Sodium (Colace) 100 mg Q12H PRN PO CONSTIPATION; Start 01/31/17 at 18: 30 Enoxaparin Sodium (Lovenox) 40 mg DAILY SC Last administered on 02/02/17 11:24 ; Admin Dose 40 MG; Start 02/01/17 at 09:00; Status Future Hold Insulin Glargine (Lantus) 15 unit QHS SC Last administered on 02/09/17 20:24; Admin Dose 15 UNIT; Start 01/31/17 at 21:00 Diagnostic Test (Pha) (Accu-Chek) 1 ea 02 XX Last administered on 02/09/17 02: 00; Admin Dose 1 EA; Start 02/01/17 at 02:00 Lorazepam (Ativan) 1 mg Q6H PRN PO CONTROL WITHDRAWAL SYMPTOMS; Start 01/31/17 at 18:30; Status Future Hold Miscellaneous Information 1 ea NOTE XX ; Start 01/31/17 at 18:30 Glucose (Glutose) 15 gm Q15M PRN PO DECREASED GLUCOSE; Start 01/31/17 at 18:30 Glucose (Glutose) 22.5 gm Q15M PRN PO DECREASED GLUCOSE; Start 01/31/17 at 18: 30 Dextrose (D50w Syringe) 25 ml Q15M PRN IV DECREASED GLUCOSE; Start 01/31/17 at 18:30 Dextrose (D50w Syringe) 50 ml Q15M PRN IV DECREASED GLUCOSE; Start 01/31/17 at 18:30 Glucagon (Glucagen) 1 mg Q15M PRN IM DECREASED GLUCOSE; Start 01/31/17 at 18:30 Glucose (Glutose) 15 gm Q15M PRN BUCCAL DECREASED GLUCOSE; Start 01/31/17 at 18 :30 Lorazepam (Ativan) 2 mg Q6H PRN PO Agitation; Start 02/02/17 at 14:30 Lactulose (Enulose) 20 gm Q8 PO Last administered on 02/10/17 05:24; Admin Dose 20 GM; Start 02/03/17 at 14:00 Rifaximin 550 mg 550 mg BID PO Last administered on 02/10/17 08:50; Admin Dose 550 MG; Start 02/05/17 at 21:00 Albumin Human (Albumin Human 25%) 100 ml @ 100 mls/hr ONCE IV Last administered on 02/09/17 16:44; Admin Dose 100 MLS/HR; Start 02/07/17 at 16:30 ; Stop 02/10/17 at 16:29 Spironolactone (Aldactone) 25 mg DAILY PO Last administered on 02/10/17 08:50 ; Admin Dose 25 MG; Start 02/08/17 at 09:00 Nitroglycerin (Nitroglycerin (Sl Tab) 0.4 Mg) 1 tab Q5M PRN SL ANGINA Last administered on 02/08/17 10:43; Admin Dose 1 TAB; Start 02/08/17 at 10:00 Morphine Sulfate (morphine) 3 mg Q4H PRN IV SEVERE PAIN LEVEL 7-10 Last administered on 02/08/17 13:20; Admin Dose 3 MG; Start 02/08/17 at 11:30 Acetaminophen/ Hydrocodone Bitart ([place] (5/325)) 1 tab Q6H PRN PO PAIN LEVEL 6 -10 Last administered on 02/09/17 10:33; Admin Dose 1 TAB; Start 02/08/17 at 11 :30 Furosemide (Lasix) 40 mg DAILY PO Last administered on 02/10/17 08:50; Admin Dose 40 MG; Start 02/10/17 at 09:00 SARTHAK BOGGS NP Feb 10, 2017 11:33
[2017-02-10 20:03] VITALS: BP 127/71; RESP 20
[2017-02-10] MEDS: INSULIN GLARGINE [LANtus] 3 ML PEN SC SCH (21:21)
[2017-02-11] MEDS: ACCU-CHEK XX SCH (02:00)
[2017-02-11] MEDS: PANTOPRAZOLE (EC) 40 MG TAB PO SCH (05:42)
[2017-02-11] MEDS: LACTULOSE 30ML CUP PO SCH ×3 (05:42→21:35)
[2017-02-11 05:58] LABS: ADD SCAN DIFF NO
[2017-02-11 06:08] LABS: ABNORMAL IP MESSAGE 1; BASOPHIL # 0.1 10^3/ul (0.0-0.1); BASOPHILS % 1.6 % (0.0-2.0); EOSINOPHILS # 0.1 10^3/ul (0.0-0.5); EOSINOPHILS % 3.6 % (0.0-7.0); HEMATOCRIT 28.7 % (42.0-52.0); HEMOGLOBIN 9.1 g/dl (14.0-18.0); LYMPHOCYTES % 26.1 % (15.0-51.0); MEAN CORPUSCULAR HEMOGLOBIN 27.1 pg (29.0-33.0); MEAN CORPUSCULAR HGB CONC 31.7 g/dl (32.0-37.0); MEAN CORPUSCULAR VOLUME 85.4 fl (82.0-101.0); MEAN PLATELET VOLUME 9.8 fl (7.4-10.4); MONOCYTE # 0.6 10^3/ul (0.3-0.9); MONOCYTES % 16.2 % (0.0-11.0); NEUTROPHIL # 1.9 10^3/ul (1.6-7.5); NEUTROPHILS % 52.2 % (39.0-77.0); PLATELET COUNT 75 10^3/UL (140-415); RED BLOOD COUNT 3.36 10^6/ul (4.70-6.10); RED CELL DISTRIBUTION WIDTH 24.1 % (11.5-14.5); WHITE BLOOD COUNT 3.6 10^3/ul (4.8-10.8)
[2017-02-11 06:35] LABS: MAGNESIUM 1.6 mg/dl (1.7-2.5); PHOSPHORUS 3.9 mg/dl (2.5-4.9)
[2017-02-11 06:40] LABS: ALBUMIN 3.3 g/dl (3.3-4.9); ALBUMIN/GLOBULIN RATIO 1.03; BILIRUBIN,INDIRECT 0.9 mg/dl (0-1.1); BILIRUBIN,TOTAL 0.9 mg/dl (0.2-1.3); CALCIUM 8.5 mg/dl (8.4-10.2); CREATININE 0.57 mg/dl (0.61-1.24); POTASSIUM 3.7 mmol/L (3.5-5.1); TOTAL PROTEIN 6.5 g/dl (6.1-8.1)
[2017-02-11] MEDS: INSULIN ASPART [NOVOLOG] 3 ML PEN SC SCH ×4 (08:07→21:43)
[2017-02-11 08:08] VITALS: BP 121/80; RESP 16
[2017-02-11 09:30] VITALS: BP 131/78; PULSE 86; RESP 18
[2017-02-11] MEDS: SPIRONOLACTONE 25 MG TAB PO SCH (09:31)
[2017-02-11] MEDS: RIFAXIMIN 550 MG TAB PO SCH ×2 (09:31→21:35)
[2017-02-11] MEDS: FOLIC ACID 1 MG TAB PO SCH (09:31)
[2017-02-11] MEDS: CHOLECALCIFEROL 1,000 UNIT TAB PO SCH (09:31)
[2017-02-11] MEDS: FERROUS SULFATE (EC) 325 MG TAB PO SCH (09:31)
[2017-02-11] MEDS: THIAMINE 100 MG TAB PO SCH (09:31)
[2017-02-11] MEDS: FUROSEMIDE 40 MG TAB PO SCH (09:32)
--- NOTE | 2017-02-11 10:20 | PN ---
Date/Time of Note Date/Time of Note DATE: 02/11/17 TIME: 10:19 Assessment/Plan VTE Prophylaxis VTE Prophylaxis Intervention: contraindicated Lines/Catheters IV [facility]ter Type (from [facility]): [place] Urinary Cath still in place: No Assessment/Plan Chief Complaint/Hosp Course 1. Sepsis with underlying gram-positive bacteremia. Source of infection is unclear. Repeat blood cultures have been negative. Infectious disease following. The patient has been taken off antibiotics since there is no definite evidence of a source of infection. 2. Alcohol intoxication. S/P Librium taper. The patient also on a daily banana bag. 3. Alcoholic liver disease with underlying ascites. Status post paracentesis on 02/01/2017 with a drainage of 3.5 liters of serous fluid. 4. Hyperammonemia. Will continue the patient on lactulose. 5. Right scrotal hydrocele with scrotal wall thickening is seen and evaluated by general surgery. No acute surgical intervention necessary. Elevate the scrotum. 6. Left inguinal hernia. No need for any acute surgical intervention. 7. Type 2 diabetes mellitus. Hemoglobin A1c 11.3. Continue sliding scale insulin. Blood sugars well controlled currently. 8. Pancytopenia, most probably secondary to underlying liver cirrhosis. Continue to monitor blood components. Transfuse as needed. 9. Transaminitis. Most probably secondary to underlying chronic liver disease. Continue to monitor the liver function tests closely. Avoid hepatotoxic medications. 10. Debility. S/P physical therapy evaluation. PT recommending SNF placement. 11. Fluid, electrolytes and nutrition. Carbohydrate controlled diet. 12. Deep venous thrombosis prophylaxis. He was on Lovenox. However, this was put on hold because of worsening thrombocytopenia. 13. Gastrointestinal prophylaxis. Proton pump inhibitors. PLAN: Continue inpatient care. The patient has been off antibiotics as per infectious diseases. Will monitor for any fevers. Await placement. Replete magnesium. Case was discussed with Dr. Guzmán. Problems: Subjective 24 Hr Interval Summary Free Text/Dictation Vital signs stable. Exam/Review of Systems Vital Signs Vitals Vital Signs Date Time Temp Pulse Resp B/P Pulse Ox O2 Delivery O2 Flow Rate FiO2 02/11/17 09:30 86 18 131/78 96 Room Air 02/11/17 08:08 98.7 Intake and Output 02/10/17 02/10/17 02/11/17 15:00 23:00 07:00 Intake Total 880 ml 250 ml Output Total 550 ml Balance 330 ml 250 ml Exam GENERAL: Adequately built male patient lying in bed in no apparent distress. HEENT: Head normocephalic and atraumatic. Eyes: Anicteric sclerae. Conjunctivae clear. ENT: Nasal septum is midline. Oral mucosa is dry. NECK: Supple. No JVD noticed. RESPIRATORY: Bilaterally diminished breath sounds. No adventitious breath sounds. No use of accessory muscles of respiration. CARDIAC: Regular rate and rhythm. S1, S2. ABDOMEN: Ascites. Right lower quadrant tenderness upon palpation. GENITOURINARY: Right scrotal swelling. EXTREMITIES: No cyanosis, no clubbing, no edema. Peripheral pulses palpable. NEUROLOGIC: The patient is awake, alert and oriented. Cranial nerves are grossly intact. Results Result Diagram: 02/11/17 0520 02/11/17 0520 Results 24 hrs Laboratory Tests Test 02/10/17 12:36 02/10/17 17:50 02/10/17 21:08 02/11/17 03:08 Bedside Glucose 260 H 169 229 H 215 Test 02/11/17 05:20 02/11/17 08:03 White Blood Count 3.6 L Red Blood Count 3.36 L Hemoglobin 9.1 L Hematocrit 28.7 L Mean Corpuscular Volume 85.4 Mean Corpuscular Hemoglobin 27.1 L Mean Corpuscular Hemoglobin Concent 31.7 L Red Cell Distribution Width 24.1 H Platelet Count 75 L Mean Platelet Volume 9.8 Neutrophils % 52.2 Lymphocytes % 26.1 Monocytes % 16.2 H Eosinophils % 3.6 Basophils % 1.6 Nucleated Red Blood Cells % 0.0 Neutrophils # 1.9 Lymphocytes # 1.0 Monocytes # 0.6 Eosinophils # 0.1 Basophils # 0.1 Nucleated Red Blood Cells # 0.0 Sodium Level 137 Potassium Level 3.7 Chloride Level 102 Carbon Dioxide Level 28 Anion Gap 11 Blood Urea Nitrogen 11 Creatinine 0.57 L Glucose Level 164 Calcium Level 8.5 Phosphorus Level 3.9 Magnesium Level 1.6 L Total Bilirubin 0.9 Direct Bilirubin 0.00 Indirect Bilirubin 0.9 Aspartate Amino Transf (AST/SGOT) 66 H Alanine Aminotransferase (ALT/SGPT) 49 Alkaline Phosphatase 254 H Ammonia 60 H Total Protein 6.5 Albumin 3.3 Globulin 3.20 Albumin/Globulin Ratio 1.03 Bedside Glucose 148 Medications Medications Current Medications Cholecalciferol (Vitamin D) 2,000 unit DAILY PO Last administered on 02/11/17 09:31; Admin Dose 2,000 UNIT; Start 02/01/17 at 09:00 Ferrous Sulfate (Ferrous Sulfate (Ec)) 325 mg DAILY PO Last administered on 09:31; Admin Dose 325 MG; Start 02/01/17 at 09:00 Folic Acid (Folic Acid) 1 mg DAILY PO Last administered on 02/11/17 09:31; Admin Dose 1 MG; Start 02/01/17 at 09:00 Thiamine HCl (Vitamin B1) 100 mg DAILY PO Last administered on 02/11/17 09:31 ; Admin Dose 100 MG; Start 02/01/17 at 09:00 Pantoprazole (Protonix Tab) 40 mg DAILY@06 PO Last administered on 02/11/17 05 :42; Admin Dose 40 MG; Start 02/01/17 at 06:00 Ondansetron HCl (Zofran Tab) 4 mg Q6H PRN PO NAUSEA AND/OR VOMITING; Start at 18:30 Acetaminophen (Tylenol Tab) 650 mg Q6H PRN PO PAIN LEVEL 1-3 OR FEVER; Start at 18:30 Docusate Sodium (Colace) 100 mg Q12H PRN PO CONSTIPATION; Start 01/31/17 at 18: 30 Enoxaparin Sodium (Lovenox) 40 mg DAILY SC Last administered on 02/02/17 11:24 ; Admin Dose 40 MG; Start 02/01/17 at 09:00; Status Future Hold Insulin Glargine (Lantus) 15 unit QHS SC Last administered on 02/10/17 21:21; Admin Dose 15 UNIT; Start 01/31/17 at 21:00 Diagnostic Test (Pha) (Accu-Chek) 1 ea 02 XX Last administered on 02/09/17 02: 00; Admin Dose 1 EA; Start 02/01/17 at 02:00 Lorazepam (Ativan) 1 mg Q6H PRN PO CONTROL WITHDRAWAL SYMPTOMS; Start 01/31/17 at 18:30; Status Future Hold Miscellaneous Information 1 ea NOTE XX ; Start 01/31/17 at 18:30 Glucose (Glutose) 15 gm Q15M PRN PO DECREASED GLUCOSE; Start 01/31/17 at 18:30 Glucose (Glutose) 22.5 gm Q15M PRN PO DECREASED GLUCOSE; Start 01/31/17 at 18: 30 Dextrose (D50w Syringe) 25 ml Q15M PRN IV DECREASED GLUCOSE; Start 01/31/17 at 18:30 Dextrose (D50w Syringe) 50 ml Q15M PRN IV DECREASED GLUCOSE; Start 01/31/17 at 18:30 Glucagon (Glucagen) 1 mg Q15M PRN IM DECREASED GLUCOSE; Start 01/31/17 at 18:30 Glucose (Glutose) 15 gm Q15M PRN BUCCAL DECREASED GLUCOSE; Start 01/31/17 at 18 :30 Lorazepam (Ativan) 2 mg Q6H PRN PO Agitation; Start 02/02/17 at 14:30 Lactulose (Enulose) 20 gm Q8 PO Last administered on 02/11/17 05:42; Admin Dose 20 GM; Start 02/03/17 at 14:00 Rifaximin (Xifaxan) 550 mg BID PO Last administered on 02/11/17 09:31; Admin Dose 550 MG; Start 02/05/17 at 21:00 Spironolactone (Aldactone) 25 mg DAILY PO Last administered on 02/11/17 09:31 ; Admin Dose 25 MG; Start 02/08/17 at 09:00 Nitroglycerin (Nitroglycerin (Sl Tab) 0.4 Mg) 1 tab Q5M PRN SL ANGINA Last administered on 02/08/17 10:43; Admin Dose 1 TAB; Start 02/08/17 at 10:00 Morphine Sulfate (morphine) 3 mg Q4H PRN IV SEVERE PAIN LEVEL 7-10 Last administered on 02/08/17 13:20; Admin Dose 3 MG; Start 02/08/17 at 11:30 Acetaminophen/ Hydrocodone Bitart ([place] (5/325)) 1 tab Q6H PRN PO PAIN LEVEL 6 -10 Last administered on 02/09/17 10:33; Admin Dose 1 TAB; Start 02/08/17 at 11 :30 Furosemide (Lasix) 40 mg DAILY PO Last administered on 02/11/17 09:32; Admin Dose 40 MG; Start 02/10/17 at 09:00 SARTHAK BOGGS NP Feb 11, 2017 10:20
[2017-02-11] MEDS ORDERED: MAGNESIUM SULFATE 2 GM/50 ML 50 ML IVPB ONE (11:30)
[2017-02-11 20:07] VITALS: BP 127/73; RESP 16
[2017-02-11] MEDS: INSULIN GLARGINE [LANtus] 3 ML PEN SC SCH (21:42)
[2017-02-12] MEDS: ACCU-CHEK XX SCH (02:00)
[2017-02-12] MEDS: LACTULOSE 30ML CUP PO SCH ×3 (06:27→21:46)
[2017-02-12] MEDS: PANTOPRAZOLE (EC) 40 MG TAB PO SCH (06:27)
[2017-02-12 07:48] VITALS: BP 127/76; RESP 18
[2017-02-12] MEDS: INSULIN ASPART [NOVOLOG] 3 ML PEN SC SCH ×4 (08:14→21:50)
[2017-02-12] MEDS: RIFAXIMIN 550 MG TAB PO SCH ×2 (08:53→21:46)
[2017-02-12] MEDS: FUROSEMIDE 40 MG TAB PO SCH (08:53)
[2017-02-12] MEDS: THIAMINE 100 MG TAB PO SCH (08:53)
[2017-02-12] MEDS: FERROUS SULFATE (EC) 325 MG TAB PO SCH (08:53)
[2017-02-12] MEDS: SPIRONOLACTONE 25 MG TAB PO SCH (08:53)
[2017-02-12] MEDS: CHOLECALCIFEROL 1,000 UNIT TAB PO SCH (08:53)
[2017-02-12] MEDS: FOLIC ACID 1 MG TAB PO SCH (08:53)
--- NOTE | 2017-02-12 12:15 | PN ---
Date/Time of Note Date/Time of Note DATE: 02/12/17 TIME: 12:14 Assessment/Plan VTE Prophylaxis VTE Prophylaxis Intervention: contraindicated Lines/Catheters IV C[facility] Type (from [facility] Saline Lock Urinary Cath still in place: No Assessment/Plan Chief Complaint/Hosp Course 1. Sepsis with underlying gram-positive bacteremia. Source of infection is unclear. Repeat blood cultures have been negative. Infectious disease following. The patient has been taken off antibiotics since there is no definite evidence of a source of infection. 2. Alcohol intoxication. S/P Librium taper. The patient also on a daily banana bag. 3. Alcoholic liver disease with underlying ascites. Status post paracentesis on 02/01/2017 with a drainage of 3.5 liters of serous fluid. 4. Hyperammonemia. Will continue the patient on lactulose. 5. Right scrotal hydrocele with scrotal wall thickening is seen and evaluated by general surgery. No acute surgical intervention necessary. Elevate the scrotum. 6. Left inguinal hernia. No need for any acute surgical intervention. 7. Type 2 diabetes mellitus. Hemoglobin A1c 11.3. Continue sliding scale insulin. Blood sugars well controlled currently. 8. Pancytopenia, most probably secondary to underlying liver cirrhosis. Continue to monitor blood components. Transfuse as needed. 9. Transaminitis. Most probably secondary to underlying chronic liver disease. Continue to monitor the liver function tests closely. Avoid hepatotoxic medications. 10. Debility. S/P physical therapy evaluation. PT recommending SNF placement. 11. Fluid, electrolytes and nutrition. Carbohydrate controlled diet. 12. Deep venous thrombosis prophylaxis. He was on Lovenox. However, this was put on hold because of worsening thrombocytopenia. 13. Gastrointestinal prophylaxis. Proton pump inhibitors. PLAN: Continue inpatient care. The patient has been off antibiotics as per infectious diseases. Will monitor for any fevers. Await placement. The patient is home less. Case was discussed with Dr. Guzmán. Problems: Subjective 24 Hr Interval Summary Free Text/Dictation Vital signs stable. Exam/Review of Systems Vital Signs Vitals Vital Signs Date Time Temp Pulse Resp B/P Pulse Ox O2 Delivery O2 Flow Rate FiO2 02/12/17 07:48 98.5 83 18 127/76 98 02/11/17 09:30 Room Air Intake and Output 02/11/17 02/11/17 02/12/17 15:00 23:00 07:00 Intake Total 1740 ml 480 ml Output Total 950 ml 500 ml Balance 790 ml -20 ml Exam GENERAL: Adequately built male patient lying in bed in no apparent distress. HEENT: Head normocephalic and atraumatic. Eyes: Anicteric sclerae. Conjunctivae clear. ENT: Nasal septum is midline. Oral mucosa is dry. NECK: Supple. No JVD noticed. RESPIRATORY: Bilaterally diminished breath sounds. No adventitious breath sounds. No use of accessory muscles of respiration. CARDIAC: Regular rate and rhythm. S1, S2. ABDOMEN: Ascites. Right lower quadrant tenderness upon palpation. GENITOURINARY: Right scrotal swelling. EXTREMITIES: No cyanosis, no clubbing, no edema. Peripheral pulses palpable. NEUROLOGIC: The patient is awake, alert and oriented. Cranial nerves are grossly intact. Results Result Diagram: 02/11/17 0502/11/17 0520 Results 24 hrs Laboratory Tests Test 02/11/17 12:19 02/11/17 17:17 02/11/17 21:33 02/12/17 02:07 Bedside Glucose 282 H 296 H 214 136 Test 02/12/17 08:08 Bedside Glucose 163 Medications Medications Current Medications Cholecalciferol (Vitamin D) 2,000 unit DAILY PO Last administered on 02/12/17 08:53; Admin Dose 2,000 UNIT; Start 02/01/17 at 09:00 Ferrous Sulfate (Ferrous Sulfate (Ec)) 325 mg DAILY PO Last administered on 08:53; Admin Dose 325 MG; Start 02/01/17 at 09:00 Folic Acid (Folic Acid) 1 mg DAILY PO Last administered on 02/12/17 08:53; Admin Dose 1 MG; Start 02/01/17 at 09:00 Thiamine HCl (Vitamin B1) 100 mg DAILY PO Last administered on 02/12/17 08:53 ; Admin Dose 100 MG; Start 02/01/17 at 09:00 Pantoprazole (Protonix Tab) 40 mg DAILY@06 PO Last administered on 02/12/17 06 :27; Admin Dose 40 MG; Start 02/01/17 at 06:00 Ondansetron HCl (Zofran Tab) 4 mg Q6H PRN PO NAUSEA AND/OR VOMITING; Start at 18:30 Acetaminophen (Tylenol Tab) 650 mg Q6H PRN PO PAIN LEVEL 1-3 OR FEVER; Start at 18:30 Docusate Sodium (Colace) 100 mg Q12H PRN PO CONSTIPATION; Start 01/31/17 at 18: 30 Enoxaparin Sodium (Lovenox) 40 mg DAILY SC Last administered on 02/02/17 11:24 ; Admin Dose 40 MG; Start 02/01/17 at 09:00; Status Future Hold Insulin Glargine (Lantus) 15 unit QHS SC Last administered on 02/11/17 21:42; Admin Dose 15 UNIT; Start 01/31/17 at 21:00 Diagnostic Test (Pha) (Accu-Chek) 1 ea 02 XX Last administered on 02/09/17 02: 00; Admin Dose 1 EA; Start 02/01/17 at 02:00 Lorazepam (Ativan) 1 mg Q6H PRN PO CONTROL WITHDRAWAL SYMPTOMS; Start 01/31/17 at 18:30; Status Future Hold Miscellaneous Information 1 ea NOTE XX ; Start 01/31/17 at 18:30 Glucose (Glutose) 15 gm Q15M PRN PO DECREASED GLUCOSE; Start 01/31/17 at 18:30 Glucose (Glutose) 22.5 gm Q15M PRN PO DECREASED GLUCOSE; Start 01/31/17 at 18: 30 Dextrose (D50w Syringe) 25 ml Q15M PRN IV DECREASED GLUCOSE; Start 01/31/17 at 18:30 Dextrose (D50w Syringe) 50 ml Q15M PRN IV DECREASED GLUCOSE; Start 01/31/17 at 18:30 Glucagon (Glucagen) 1 mg Q15M PRN IM DECREASED GLUCOSE; Start 01/31/17 at 18:30 Glucose (Glutose) 15 gm Q15M PRN BUCCAL DECREASED GLUCOSE; Start 01/31/17 at 18 :30 Lorazepam (Ativan) 2 mg Q6H PRN PO Agitation; Start 02/02/17 at 14:30 Lactulose (Enulose) 20 gm Q8 PO Last administered on 02/12/17 06:27; Admin Dose 20 GM; Start 02/03/17 at 14:00 Rifaximin (Xifaxan) 550 mg BID PO Last administered on 02/12/17 08:53; Admin Dose 550 MG; Start 02/05/17 at 21:00 Spironolactone (Aldactone) 25 mg DAILY PO Last administered on 02/12/17 08:53 ; Admin Dose 25 MG; Start 02/08/17 at 09:00 Nitroglycerin (Nitroglycerin (Sl Tab) 0.4 Mg) 1 tab Q5M PRN SL ANGINA Last administered on 02/08/17 10:43; Admin Dose 1 TAB; Start 02/08/17 at 10:00 Morphine Sulfate (morphine) 3 mg Q4H PRN IV SEVERE PAIN LEVEL 7-10 Last administered on 02/08/17 13:20; Admin Dose 3 MG; Start 02/08/17 at 11:30 Acetaminophen/ Hydrocodone Bitart ([place] (5/325)) 1 tab Q6H PRN PO PAIN LEVEL 6 -10 Last administered on 02/09/17 10:33; Admin Dose 1 TAB; Start 02/08/17 at 11 :30 Furosemide (Lasix) 40 mg DAILY PO Last administered on 02/12/17 08:53; Admin Dose 40 MG; Start 02/10/17 at 09:00 SARTHAK BOGGS NP Feb 12, 2017 12:15
[2017-02-12 20:40] VITALS: BP 117/69; RESP 18
[2017-02-12] MEDS: INSULIN GLARGINE [LANtus] 3 ML PEN SC SCH (21:50)
[2017-02-13] MEDS: ACCU-CHEK XX SCH (02:00)
[2017-02-13] MEDS: LACTULOSE 30ML CUP PO SCH ×3 (06:38→21:51)
[2017-02-13] MEDS: PANTOPRAZOLE (EC) 40 MG TAB PO SCH (06:38)
--- NOTE | 2017-02-13 07:29 | PN ---
Date/Time of Note Date/Time of Note DATE: 02/13/17 TIME: : Assessment/Plan VTE Prophylaxis VTE Prophylaxis Intervention: contraindicated Lines/Catheters IV Catheter Type (from [facility]): Saline Lock Urinary Cath still in place: No Assessment/Plan Chief Complaint/Hosp Course 1. S/P sepsis with underlying gram-positive bacteremia. Source of infection is unclear. Repeat blood cultures have been negative. Infectious disease following. The patient has been taken off antibiotics since there is no definite evidence of a source of infection. 2. Alcohol intoxication. S/P Librium taper. The patient also on a daily banana bag. 3. Alcoholic liver disease with underlying ascites. Status post paracentesis on 02/01/2017 with a drainage of 3.5 liters of serous fluid. 4. Hyperammonemia. Will continue the patient on lactulose. 5. Right scrotal hydrocele with scrotal wall thickening is seen and evaluated by general surgery. No acute surgical intervention necessary. Elevate the scrotum. 6. Left inguinal hernia. No need for any acute surgical intervention. 7. Type 2 diabetes mellitus. Hemoglobin A1c 11.3. Continue sliding scale insulin. Blood sugars well controlled currently. 8. Pancytopenia, most probably secondary to underlying liver cirrhosis. Continue to monitor blood components. Transfuse as needed. 9. Transaminitis. Most probably secondary to underlying chronic liver disease. Continue to monitor the liver function tests closely. Avoid hepatotoxic medications. 10. Debility. S/P physical therapy evaluation. PT recommending SNF placement. 11. Fluid, electrolytes and nutrition. Carbohydrate controlled diet. 12. Deep venous thrombosis prophylaxis. He was on Lovenox. However, this was put on hold because of worsening thrombocytopenia. 13. Gastrointestinal prophylaxis. Proton pump inhibitors. PLAN: Continue inpatient care. The patient has been off antibiotics as per infectious diseases. Will monitor for any fevers. Await placement. The patient is homeless. Case was discussed with Dr. Guzmán. Problems: Subjective 24 Hr Interval Summary Free Text/Dictation Blood sugars running high. Exam/Review of Systems Vital Signs Vitals Vital Signs Date Time Temp Pulse Resp B/P Pulse Ox O2 Delivery O2 Flow Rate FiO2 02/12/17 20:40 99.1 97 18 117/69 96 02/11/17 09:30 Room Air Intake and Output 02/12/17 02/12/17 02/13/17 15:00 23:00 07:00 Intake Total 1280 ml Output Total 900 ml Balance 380 ml Exam GENERAL: Adequately built male patient lying in bed in no apparent distress. HEENT: Head normocephalic and atraumatic. Eyes: Anicteric sclerae. Conjunctivae clear. ENT: Nasal septum is midline. Oral mucosa is dry. NECK: Supple. No JVD noticed. RESPIRATORY: Bilaterally diminished breath sounds. No adventitious breath sounds. No use of accessory muscles of respiration. CARDIAC: Regular rate and rhythm. S1, S2. ABDOMEN: Ascites. Right lower quadrant tenderness upon palpation. GENITOURINARY: Right scrotal swelling. EXTREMITIES: No cyanosis, no clubbing, no edema. Peripheral pulses palpable. NEUROLOGIC: The patient is awake, alert and oriented. Cranial nerves are grossly intact. Results Result Diagram: 02/11/1751902/11/17519 Results 24 hrs Laboratory Tests Test 02/12/17 08:08 02/12/17 12:27 02/12/17 17:33 02/12/17 21:44 Bedside Glucose 163 265 H 214 268 H Test 02/13/17 02:37 Bedside Glucose 281 H Medications Medications Current Medications Cholecalciferol (Vitamin D) 2,000 unit DAILY PO Last administered on 02/12/17 08:53; Admin Dose 2,000 UNIT; Start 02/01/17 at 09:00 Ferrous Sulfate (Ferrous Sulfate (Ec)) 325 mg DAILY PO Last administered on 08:53; Admin Dose 325 MG; Start 02/01/17 at 09:00 Folic Acid (Folic Acid) 1 mg DAILY PO Last administered on 02/12/17 08:53; Admin Dose 1 MG; Start 02/01/17 at 09:00 Thiamine HCl (Vitamin B1) 100 mg DAILY PO Last administered on 02/12/17 08:53 ; Admin Dose 100 MG; Start 02/01/17 at 09:00 Pantoprazole (Protonix Tab) 40 mg DAILY@06 PO Last administered on 02/13/17 06 :38; Admin Dose 40 MG; Start 02/01/17 at 06:00 Ondansetron HCl (Zofran Tab) 4 mg Q6H PRN PO NAUSEA AND/OR VOMITING; Start at 18:30 Acetaminophen (Tylenol Tab) 650 mg Q6H PRN PO PAIN LEVEL 1-3 OR FEVER; Start at 18:30 Docusate Sodium (Colace) 100 mg Q12H PRN PO CONSTIPATION; Start 01/31/17 at 18: 30 Enoxaparin Sodium (Lovenox) 40 mg DAILY SC Last administered on 02/02/17 11:24 ; Admin Dose 40 MG; Start 02/01/17 at 09:00; Status Future Hold Insulin Glargine (Lantus) 15 unit QHS SC Last administered on 02/12/17 21:50; Admin Dose 15 UNIT; Start 01/31/17 at 21:00 Diagnostic Test (Pha) (Accu-Chek) 1 ea 02 XX Last administered on 02/09/17 02: 00; Admin Dose 1 EA; Start 02/01/17 at 02:00 Lorazepam (Ativan) 1 mg Q6H PRN PO CONTROL WITHDRAWAL SYMPTOMS; Start 01/31/17 at 18:30; Status Future Hold Miscellaneous Information 1 ea NOTE XX ; Start 01/31/17 at 18:30 Glucose (Glutose) 15 gm Q15M PRN PO DECREASED GLUCOSE; Start 01/31/17 at 18:30 Glucose (Glutose) 22.5 gm Q15M PRN PO DECREASED GLUCOSE; Start 01/31/17 at 18: 30 Dextrose (D50w Syringe) 25 ml Q15M PRN IV DECREASED GLUCOSE; Start 01/31/17 at 18:30 Dextrose (D50w Syringe) 50 ml Q15M PRN IV DECREASED GLUCOSE; Start 01/31/17 at 18:30 Glucagon (Glucagen) 1 mg Q15M PRN IM DECREASED GLUCOSE; Start 01/31/17 at 18:30 Glucose (Glutose) 15 gm Q15M PRN BUCCAL DECREASED GLUCOSE; Start 01/31/17 at 18 :30 Lorazepam (Ativan) 2 mg Q6H PRN PO Agitation; Start 02/02/17 at 14:30 Lactulose (Enulose) 20 gm Q8 PO Last administered on 02/13/17 06:38; Admin Dose 20 GM; Start 02/03/17 at 14:00 Rifaximin (Xifaxan) 550 mg BID PO Last administered on 02/12/17 21:46; Admin Dose 550 MG; Start 02/05/17 at 21:00 Spironolactone (Aldactone) 25 mg DAILY PO Last administered on 02/12/17 08:53 ; Admin Dose 25 MG; Start 02/08/17 at 09:00 Nitroglycerin (Nitroglycerin (Sl Tab) 0.4 Mg) 1 tab Q5M PRN SL ANGINA Last administered on 02/08/17 10:43; Admin Dose 1 TAB; Start 02/08/17 at 10:00 Morphine Sulfate (morphine) 3 mg Q4H PRN IV SEVERE PAIN LEVEL 7-10 Last administered on 02/08/17 13:20; Admin Dose 3 MG; Start 02/08/17 at 11:30 Acetaminophen/ Hydrocodone Bitart ([place] (5/325)) 1 tab Q6H PRN PO PAIN LEVEL 6 -10 Last administered on 02/09/17 10:33; Admin Dose 1 TAB; Start 02/08/17 at 11 :30 Furosemide (Lasix) 40 mg DAILY PO Last administered on 02/12/17 08:53; Admin Dose 40 MG; Start 02/10/17 at 09:00 SARTHAK BOGGS NP Feb 13, 2017 07:29
[2017-02-13 08:15] VITALS: BP 124/80; RESP 16
[2017-02-13] MEDS: INSULIN ASPART [NOVOLOG] 3 ML PEN SC SCH ×5 (08:53→22:03)
[2017-02-13] MEDS: FERROUS SULFATE (EC) 325 MG TAB PO SCH (11:01)
[2017-02-13] MEDS: THIAMINE 100 MG TAB PO SCH (11:01)
[2017-02-13] MEDS: RIFAXIMIN 550 MG TAB PO SCH ×2 (11:01→21:51)
[2017-02-13] MEDS: CHOLECALCIFEROL 1,000 UNIT TAB PO SCH (11:03)
[2017-02-13] MEDS: FOLIC ACID 1 MG TAB PO SCH (11:03)
[2017-02-13] MEDS: SPIRONOLACTONE 25 MG TAB PO SCH (11:03)
[2017-02-13] MEDS: FUROSEMIDE 40 MG TAB PO SCH (11:03)
[2017-02-13 11:04] VITALS: BP 132/84; PULSE 84
[2017-02-13 19:20] VITALS: BP 127/79; RESP 18
[2017-02-13] MEDS: INSULIN GLARGINE [LANtus] 3 ML PEN SC SCH (22:03)
[2017-02-14] MEDS: ACCU-CHEK XX SCH (02:00)
[2017-02-14] MEDS: PANTOPRAZOLE (EC) 40 MG TAB PO SCH (05:38)
[2017-02-14] MEDS: LACTULOSE 30ML CUP PO SCH ×3 (05:38→21:13)
[2017-02-14 07:31] VITALS: BP 123/78; RESP 18
[2017-02-14] MEDS: INSULIN ASPART [NOVOLOG] 3 ML PEN SC SCH ×7 (08:00→21:08)
[2017-02-14] MEDS: FUROSEMIDE 40 MG TAB PO SCH (08:27)
[2017-02-14] MEDS: THIAMINE 100 MG TAB PO SCH (08:27)
[2017-02-14] MEDS: SPIRONOLACTONE 25 MG TAB PO SCH (08:27)
[2017-02-14] MEDS: FOLIC ACID 1 MG TAB PO SCH (08:27)
[2017-02-14] MEDS: RIFAXIMIN 550 MG TAB PO SCH ×2 (08:27→21:13)
[2017-02-14] MEDS: CHOLECALCIFEROL 1,000 UNIT TAB PO SCH (08:27)
[2017-02-14] MEDS: FERROUS SULFATE (EC) 325 MG TAB PO SCH (08:27)
[2017-02-14 08:29] VITALS: BP 126/85; PULSE 88
--- NOTE | 2017-02-14 09:50 | PN ---
Date/Time of Note Date/Time of Note DATE: 02/14/17 TIME: 09:49 Assessment/Plan VTE Prophylaxis VTE Prophylaxis Intervention: contraindicated Lines/Catheters IV Catheter Type (from [facility]): Saline Lock Urinary Cath still in place: No Assessment/Plan Chief Complaint/Hosp Course 1. S/P sepsis with underlying gram-positive bacteremia. Source of infection is unclear. Repeat blood cultures have been negative. Infectious disease following. The patient has been taken off antibiotics since there is no definite evidence of a source of infection. 2. Alcohol intoxication. S/P Librium taper. The patient also on a daily banana bag. 3. Alcoholic liver disease with underlying ascites. Status post paracentesis on 02/01/2017 with a drainage of 3.5 liters of serous fluid. 4. Hyperammonemia. Will continue the patient on lactulose. 5. Right scrotal hydrocele with scrotal wall thickening is seen and evaluated by general surgery. No acute surgical intervention necessary. Elevate the scrotum. 6. Left inguinal hernia. No need for any acute surgical intervention. 7. Type 2 diabetes mellitus. Hemoglobin A1c 11.3. Continue sliding scale insulin. Blood sugars well controlled currently. 8. Pancytopenia, most probably secondary to underlying liver cirrhosis. Continue to monitor blood components. Transfuse as needed. 9. Transaminitis. Most probably secondary to underlying chronic liver disease. Continue to monitor the liver function tests closely. Avoid hepatotoxic medications. 10. Debility. S/P physical therapy evaluation. PT recommending SNF placement. 11. Fluid, electrolytes and nutrition. Carbohydrate controlled diet. 12. Deep venous thrombosis prophylaxis. He was on Lovenox. However, this was put on hold because of worsening thrombocytopenia. 13. Gastrointestinal prophylaxis. Proton pump inhibitors. PLAN: Continue inpatient care. The patient has been off antibiotics as per infectious diseases. Will monitor for any fevers. Await placement. The patient is homeless as per reports. However, the patient claims that he has a house in [facility] where he lives with his girlfriend. Will have social work confirm this. Case was discussed with Dr. Guzmán. Problems: Subjective 24 Hr Interval Summary Free Text/Dictation No changes in status. Awaiting placement. Exam/Review of Systems Vital Signs Vitals Vital Signs Date Time Temp Pulse Resp B/P Pulse Ox O2 Delivery O2 Flow Rate FiO2 02/14/17 08:29 88 126/85 6/29/17 07:31 98.5 18 96 02/11/17 09:30 Room Air Intake and Output 02/13/17 02/13/17 02/14/17 15:00 23:00 07:00 Intake Total 800 ml 720 ml 350 ml Output Total 1325 ml 900 ml 600 ml Balance -525 ml -180 ml -250 ml Exam GENERAL: Adequately built male patient lying in bed in no apparent distress. HEENT: Head normocephalic and atraumatic. Eyes: Anicteric sclerae. Conjunctivae clear. ENT: Nasal septum is midline. Oral mucosa is dry. NECK: Supple. No JVD noticed. RESPIRATORY: Bilaterally diminished breath sounds. No adventitious breath sounds. No use of accessory muscles of respiration. CARDIAC: Regular rate and rhythm. S1, S2. ABDOMEN: Ascites. Right lower quadrant tenderness upon palpation. GENITOURINARY: Right scrotal swelling. EXTREMITIES: No cyanosis, no clubbing, no edema. Peripheral pulses palpable. NEUROLOGIC: The patient is awake, alert and oriented. Cranial nerves are grossly intact. Results Result Diagram: 02/11/1751902/11/17519 Results 24 hrs Laboratory Tests Test 02/13/17 12:00 02/13/17 21:50 02/14/17 02:35 02/14/17 07:50 Bedside Glucose 254 H 267 H 242 H 220 Medications Medications Current Medications Cholecalciferol (Vitamin D) 2,000 unit DAILY PO Last administered on 02/14/17 08:27; Admin Dose 2,000 UNIT; Start 02/01/17 at 09:00 Ferrous Sulfate (Ferrous Sulfate (Ec)) 325 mg DAILY PO Last administered on 08:27; Admin Dose 325 MG; Start 02/01/17 at 09:00 Folic Acid (Folic Acid) 1 mg DAILY PO Last administered on 02/14/17 08:27; Admin Dose 1 MG; Start 02/01/17 at 09:00 Thiamine HCl (Vitamin B1) 100 mg DAILY PO Last administered on 02/14/17 08:27 ; Admin Dose 100 MG; Start 02/01/17 at 09:00 Pantoprazole (Protonix Tab) 40 mg DAILY@06 PO Last administered on 02/14/17 05 :38; Admin Dose 40 MG; Start 02/01/17 at 06:00 Ondansetron HCl (Zofran Tab) 4 mg Q6H PRN PO NAUSEA AND/OR VOMITING; Start at 18:30 Acetaminophen (Tylenol Tab) 650 mg Q6H PRN PO PAIN LEVEL 1-3 OR FEVER; Start at 18:30 Docusate Sodium (Colace) 100 mg Q12H PRN PO CONSTIPATION; Start 01/31/17 at 18: 30 Enoxaparin Sodium (Lovenox) 40 mg DAILY SC Last administered on 02/02/17 11:24 ; Admin Dose 40 MG; Start 02/01/17 at 09:00; Status Future Hold Insulin Glargine (Lantus) 15 unit QHS SC Last administered on 02/13/17 22:03; Admin Dose 15 UNIT; Start 01/31/17 at 21:00 Diagnostic Test (Pha) (Accu-Chek) 1 ea 02 XX Last administered on 02/14/17 02: 00; Admin Dose 1 EA; Start 02/01/17 at 02:00 Lorazepam (Ativan) 1 mg Q6H PRN PO CONTROL WITHDRAWAL SYMPTOMS; Start 01/31/17 at 18:30; Status Future Hold Miscellaneous Information 1 ea NOTE XX ; Start 01/31/17 at 18:30 Glucose (Glutose) 15 gm Q15M PRN PO DECREASED GLUCOSE; Start 01/31/17 at 18:30 Glucose (Glutose) 22.5 gm Q15M PRN PO DECREASED GLUCOSE; Start 01/31/17 at 18: 30 Dextrose (D50w Syringe) 25 ml Q15M PRN IV DECREASED GLUCOSE; Start 01/31/17 at 18:30 Dextrose (D50w Syringe) 50 ml Q15M PRN IV DECREASED GLUCOSE; Start 01/31/17 at 18:30 Glucagon (Glucagen) 1 mg Q15M PRN IM DECREASED GLUCOSE; Start 01/31/17 at 18:30 Glucose (Glutose) 15 gm Q15M PRN BUCCAL DECREASED GLUCOSE; Start 01/31/17 at 18 :30 Lorazepam (Ativan) 2 mg Q6H PRN PO Agitation; Start 02/02/17 at 14:30 Lactulose (Enulose) 20 gm Q8 PO Last administered on 02/14/17 05:38; Admin Dose 20 GM; Start 02/03/17 at 14:00 Rifaximin (Xifaxan) 550 mg BID PO Last administered on 02/14/17 08:27; Admin Dose 550 MG; Start 02/05/17 at 21:00 Spironolactone (Aldactone) 25 mg DAILY PO Last administered on 02/14/17 08:27 ; Admin Dose 25 MG; Start 02/08/17 at 09:00 Nitroglycerin (Nitroglycerin (Sl Tab) 0.4 Mg) 1 tab Q5M PRN SL ANGINA Last administered on 02/08/17 10:43; Admin Dose 1 TAB; Start 02/08/17 at 10:00 Morphine Sulfate (morphine) 3 mg Q4H PRN IV SEVERE PAIN LEVEL 7-10 Last administered on 02/08/17 13:20; Admin Dose 3 MG; Start 02/08/17 at 11:30 Acetaminophen/ Hydrocodone Bitart ([place] (5/325)) 1 tab Q6H PRN PO PAIN LEVEL 6 -10 Last administered on 02/09/17 10:33; Admin Dose 1 TAB; Start 02/08/17 at 11 :30 Furosemide (Lasix) 40 mg DAILY PO Last administered on 02/14/17 08:27; Admin Dose 40 MG; Start 02/10/17 at 09:00 SARTHAK BOGGS NP Feb 14, 2017 09:50
[2017-02-14 20:01] VITALS: BP 118/77; PULSE 99; RESP 18
[2017-02-14] MEDS: INSULIN GLARGINE [LANtus] 3 ML PEN SC SCH (21:08)
[2017-02-15] MEDS: ACCU-CHEK XX SCH (02:32)
[2017-02-15] MEDS: LACTULOSE 30ML CUP PO SCH ×3 (05:12→22:13)
[2017-02-15] MEDS: PANTOPRAZOLE (EC) 40 MG TAB PO SCH (05:12)
[2017-02-15 06:00] VITALS: BP 119/78; PULSE 75; RESP 18
[2017-02-15] MEDS: FOLIC ACID 1 MG TAB PO SCH (08:12)
[2017-02-15] MEDS: THIAMINE 100 MG TAB PO SCH (08:12)
[2017-02-15] MEDS: FERROUS SULFATE (EC) 325 MG TAB PO SCH (08:12)
[2017-02-15] MEDS: CHOLECALCIFEROL 1,000 UNIT TAB PO SCH (08:12)
[2017-02-15] MEDS: SPIRONOLACTONE 25 MG TAB PO SCH (08:12)
[2017-02-15] MEDS: FUROSEMIDE 40 MG TAB PO SCH (08:14)
[2017-02-15] MEDS: INSULIN ASPART [NOVOLOG] 3 ML PEN SC SCH ×7 (08:15→22:17)
[2017-02-15 08:52] VITALS: BP 113/71; RESP 17
[2017-02-15] MEDS: RIFAXIMIN 550 MG TAB PO SCH ×2 (11:18→22:14)
--- NOTE | 2017-02-15 12:10 | PDOCDIS ---
Discharge Instructions DIAGNOSIS Discharge Diagnosis Status post sepsis. CONDITION Patient Condition: Stable HOME CARE INSTRUCTIONS: Special Diet: CARB CONTROLLED FOLLOW UP/APPOINTMENTS Follow-up Plan David Willis MD Specialty: Internal Medicine Office Address: [address] [place], [place] [id number] Office OTHER ORDERS: Other Orders: 1. Take medications as per prescription. 2. Carbohydrate controlled diet. 3. Avoid alcohol. 4. Activities with assist and as tolerated. 5. Follow-up with the primary care physician 1 week. If you do not have a primary care physician, please call Dr. David Willis's office. SARTHAK BOGGS NP Feb 15, 2017 12:10
[2017-02-15] MEDS ORDERED: LINA5TAB PO (12:12)
[2017-02-15] MEDS ORDERED: Lactulose PO (12:13)
--- NOTE | 2017-02-15 15:16 | PN ---
Date/Time of Note Date/Time of Note DATE: 02/15/17 TIME: 15:14 Assessment/Plan VTE Prophylaxis VTE Prophylaxis Intervention: SCD's Lines/Catheters IV Catheter Type (from [facility]): [facility] Urinary Cath still in place: No Assessment/Plan Chief Complaint/Hosp Course 1. S/P sepsis with underlying gram-positive bacteremia. Source of infection is unclear. Repeat blood cultures have been negative. Infectious disease following. The patient has been taken off antibiotics since there is no definite evidence of a source of infection. 2. Alcohol intoxication. S/P Librium taper. The patient also on a daily banana bag. 3. Alcoholic liver disease with underlying ascites. Status post paracentesis on 02/01/2017 with a drainage of 3.5 liters of serous fluid. 4. Hyperammonemia. Will continue the patient on lactulose. 5. Right scrotal hydrocele with scrotal wall thickening is seen and evaluated by general surgery. No acute surgical intervention necessary. Elevate the scrotum. 6. Left inguinal hernia. No need for any acute surgical intervention. 7. Type 2 diabetes mellitus. Hemoglobin A1c 11.3. Continue sliding scale insulin. Blood sugars well controlled currently. 8. Pancytopenia, most probably secondary to underlying liver cirrhosis. Continue to monitor blood components. Transfuse as needed. 9. Transaminitis. Most probably secondary to underlying chronic liver disease. Continue to monitor the liver function tests closely. Avoid hepatotoxic medications. 10. Debility. S/P physical therapy evaluation. PT recommending SNF placement. 11. Fluid, electrolytes and nutrition. Carbohydrate controlled diet. 12. Deep venous thrombosis prophylaxis. He was on Lovenox. However, this was put on hold because of worsening thrombocytopenia. 13. Gastrointestinal prophylaxis. Proton pump inhibitors. PLAN: Continue inpatient care. The patient has been off antibiotics as per infectious diseases. Will monitor for any fevers. Await placement. The patient is homeless as per reports. However, the patient claims that he has a house in [facility] where he lives with his girlfriend. Social work confirmed this. The plan is to discharge the patient home with his girlfriend with physical therapy at home and after providing the patient with a front wheel walker. Case was discussed with Dr. Guzmán. Problems: Subjective 24 Hr Interval Summary Free Text/Dictation Patient remains afebrile. Exam/Review of Systems Vital Signs Vitals Vital Signs Date Time Temp Pulse Resp B/P Pulse Ox O2 Delivery O2 Flow Rate FiO2 02/15/17 08:52 98.1 84 17 113/71 99 02/15/17 06:00 Room Air Intake and Output 02/14/17 02/14/17 02/15/17 15:00 23:00 07:00 Intake Total 840 ml 120 ml Output Total 1050 ml 300 ml Balance -210 ml -180 ml Exam GENERAL: Adequately built male patient lying in bed in no apparent distress. HEENT: Head normocephalic and atraumatic. Eyes: Anicteric sclerae. Conjunctivae clear. ENT: Nasal septum is midline. Oral mucosa is dry. NECK: Supple. No JVD noticed. RESPIRATORY: Bilaterally diminished breath sounds. No adventitious breath sounds. No use of accessory muscles of respiration. CARDIAC: Regular rate and rhythm. S1, S2. ABDOMEN: Ascites. Right lower quadrant tenderness upon palpation. GENITOURINARY: Right scrotal swelling. EXTREMITIES: No cyanosis, no clubbing, no edema. Peripheral pulses palpable. NEUROLOGIC: The patient is awake, alert and oriented. Cranial nerves are grossly intact. Results Result Diagram: 02/11/17 0502/11/17 0520 Results 24 hrs Laboratory Tests Test 02/14/17 17:28 02/14/17 21:03 02/15/17 02:29 02/15/17 07:45 Bedside Glucose 273 H 259 H 208 168 Test 02/15/17 11:42 Bedside Glucose 279 H Medications Medications Current Medications Cholecalciferol (Vitamin D) 2,000 unit DAILY PO Last administered on 02/15/17 08:12; Admin Dose 2,000 UNIT; Start 02/01/17 at 09:00 Ferrous Sulfate (Ferrous Sulfate (Ec)) 325 mg DAILY PO Last administered on 08:12; Admin Dose 325 MG; Start 02/01/17 at 09:00 Folic Acid (Folic Acid) 1 mg DAILY PO Last administered on 02/15/17 08:12; Admin Dose 1 MG; Start 02/01/17 at 09:00 Thiamine HCl (Vitamin B1) 100 mg DAILY PO Last administered on 02/15/17 08:12 ; Admin Dose 100 MG; Start 02/01/17 at 09:00 Pantoprazole (Protonix Tab) 40 mg DAILY@06 PO Last administered on 02/15/17 05 :12; Admin Dose 40 MG; Start 02/01/17 at 06:00 Ondansetron HCl (Zofran Tab) 4 mg Q6H PRN PO NAUSEA AND/OR VOMITING; Start at 18:30 Acetaminophen (Tylenol Tab) 650 mg Q6H PRN PO PAIN LEVEL 1-3 OR FEVER; Start at 18:30 Docusate Sodium (Colace) 100 mg Q12H PRN PO CONSTIPATION; Start 01/31/17 at 18: 30 Enoxaparin Sodium (Lovenox) 40 mg DAILY SC Last administered on 02/02/17 11:24 ; Admin Dose 40 MG; Start 02/01/17 at 09:00; Status Future Hold Insulin Glargine (Lantus) 15 unit QHS SC Last administered on 02/14/17 21:08; Admin Dose 15 UNIT; Start 01/31/17 at 21:00 Diagnostic Test (Pha) (Accu-Chek) 1 ea 02 XX Last administered on 02/15/17 02: 32; Admin Dose 1 EA; Start 02/01/17 at 02:00 Lorazepam (Ativan) 1 mg Q6H PRN PO CONTROL WITHDRAWAL SYMPTOMS; Start 01/31/17 at 18:30; Status Future Hold Miscellaneous Information 1 ea NOTE XX ; Start 01/31/17 at 18:30 Glucose (Glutose) 15 gm Q15M PRN PO DECREASED GLUCOSE; Start 01/31/17 at 18:30 Glucose (Glutose) 22.5 gm Q15M PRN PO DECREASED GLUCOSE; Start 01/31/17 at 18: 30 Dextrose (D50w Syringe) 25 ml Q15M PRN IV DECREASED GLUCOSE; Start 01/31/17 at 18:30 Dextrose (D50w Syringe) 50 ml Q15M PRN IV DECREASED GLUCOSE; Start 01/31/17 at 18:30 Glucagon (Glucagen) 1 mg Q15M PRN IM DECREASED GLUCOSE; Start 01/31/17 at 18:30 Glucose (Glutose) 15 gm Q15M PRN BUCCAL DECREASED GLUCOSE; Start 01/31/17 at 18 :30 Lorazepam (Ativan) 2 mg Q6H PRN PO Agitation; Start 02/02/17 at 14:30 Lactulose (Enulose) 20 gm Q8 PO Last administered on 02/15/17 05:12; Admin Dose 20 GM; Start 02/03/17 at 14:00 Rifaximin (Xifaxan) 550 mg BID PO Last administered on 02/15/17 11:18; Admin Dose 550 MG; Start 02/05/17 at 21:00 Spironolactone (Aldactone) 25 mg DAILY PO Last administered on 02/15/17 08:12 ; Admin Dose 25 MG; Start 02/08/17 at 09:00 Nitroglycerin (Nitroglycerin (Sl Tab) 0.4 Mg) 1 tab Q5M PRN SL ANGINA Last administered on 02/08/17 10:43; Admin Dose 1 TAB; Start 02/08/17 at 10:00 Morphine Sulfate (morphine) 3 mg Q4H PRN IV SEVERE PAIN LEVEL 7-10 Last administered on 02/08/17 13:20; Admin Dose 3 MG; Start 02/08/17 at 11:30 Acetaminophen/ Hydrocodone Bitart (Downs (5/325)) 1 tab Q6H PRN PO PAIN LEVEL 6 -10 Last administered on 02/09/17 10:33; Admin Dose 1 TAB; Start 02/08/17 at 11 :30 Furosemide (Lasix) 40 mg DAILY PO Last administered on 02/15/17 08:14; Admin Dose 40 MG; Start 02/10/17 at 09:00 SARTHAK BOGGS NP Feb 15, 2017 15:16
[2017-02-15] MEDS: INSULIN GLARGINE [LANtus] 3 ML PEN SC SCH (22:18)
[2017-02-15 23:21] VITALS: BP 104/57; RESP 18
[2017-02-16] MEDS: ACCU-CHEK XX SCH (02:00)
[2017-02-16] MEDS: LACTULOSE 30ML CUP PO SCH (05:28)
[2017-02-16] MEDS: PANTOPRAZOLE (EC) 40 MG TAB PO SCH (05:29)
[2017-02-16 08:00] VITALS: BP 130/74; RESP 18
[2017-02-16] MEDS: FOLIC ACID 1 MG TAB PO SCH (08:01)
[2017-02-16] MEDS: SPIRONOLACTONE 25 MG TAB PO SCH (08:01)
[2017-02-16] MEDS: FERROUS SULFATE (EC) 325 MG TAB PO SCH (08:01)
[2017-02-16] MEDS: THIAMINE 100 MG TAB PO SCH (08:02)
[2017-02-16] MEDS: CHOLECALCIFEROL 1,000 UNIT TAB PO SCH (08:02)
[2017-02-16] MEDS: RIFAXIMIN 550 MG TAB PO SCH (08:02)
[2017-02-16] MEDS: FUROSEMIDE 40 MG TAB PO SCH (08:02)
[2017-02-16] MEDS: INSULIN ASPART [NOVOLOG] 3 ML PEN SC SCH ×2 (08:08→08:09)
--- NOTE | 2017-02-16 11:11 | DS ---
Date/Time of Note Date/Time of Note DATE: 02/16/17 TIME: 11:07 Discharge Summary Admission/Discharge Info Admit Date/Time Jan 31, 2017 at 13:39 Discharge Date/Time Feb 16, 2017 at 11:03 Discharge Diagnosis 1. S/P sepsis with underlying gram-positive bacteremia. 2. Alcohol intoxication. 3. Alcoholic liver disease with underlying ascites. 4. Hyperammonemia. 5. Right scrotal hydrocele with scrotal wall thickening. 6. Left inguinal hernia. 7. Type 2 diabetes mellitus. Hemoglobin A1c 11.3. 8. Pancytopenia. 9. Transaminitis. 10. Debility. Patient Condition: Stable Consults 1. Grayson Wadsworth MD, General Surgery. 2. Hector Carney MD, Infectious Diseases. Procedures Ultrasound-guided paracentesis with drainage of 3.5 L of ascitic fluid. CT Scan of Abdomen and Pelvis IMPRESSION: 1. There is a large right scrotal hydrocele with scrotal wall thickening. 2. There is a left inguinal hernia with pad bulging and to the left inguinal canal. 3. Hepatosplenomegaly with cirrhosis and ascites. 4. Hydrops gallbladder. 5. Mucosal thickening of the stomach and small bowel loops may be the result of hypoalbuminemia related to ascites. 6. Reflex ileus. 7. Bibasilar atelectasis. 8. Mild cardiomegaly. CXR IMPRESSION: Mild bibasilar atelectatic changes, right greater than left. Mild cardiomegaly. Hx of Present Illness 56 yo M with pmhx DM2, EtOH abuse, HTN, likely chronic liver disease presents with 1 day of abd pain. States it's in his bl LQs and has been occurring intermittently for some time. Pain is quite severe. Hasn't taken his insulin in 2 days (is on 15 units of Lantus usually). Also fo note, pt's last drink was this AM-->2 beers and some additional alcohol. No fevers, chills, nausea, vomiting, constipation or diarrhea. Hospital Course The patient was admitted to inpatient setting. A general surgery consult was called. Patient's CT scan of the abdomen and pelvis showed a large right scrotal hydrocele with scrotal wall thickening and a left inguinal hernia with bad bulging and to the left inguinal canal. General surgery recommended no acute surgical intervention but elevation of the scrotum. Of note, the general surgeon also recommended no acute surgical intervention for the left inguinal hernia. The patient has underlying alcoholic liver cirrhosis with underlying ascites. The patient underwent a paracentesis on 02/01/2017 with drainage of 3.5 L of serous fluid. The patient was also noticed to have hyperammonemia. Consequently, the patient was started on lactulose. The patient was also started on rifaximin. The patient has underlying type 2 diabetes mellitus. He had a hemoglobin A1c of 11.3. The patient was maintained on sliding scale insulin along with Lantus insulin and pre-meal insulin. The patient has underlying pancytopenia secondary to underlying liver cirrhosis. The patient did not require any transfusion of blood products during the hospital course. Patient had underlying sepsis secondary to coagulase-negative Staphylococcus bacteremia. The patient was maintained on antibiotics as per infectious diseases. The source of infection remains unclear. The patient's repeat blood cultures remained negative. The patient had no evidence of any spontaneous bacterial peritonitis as per the results from the paracentesis. The patient was later taken off antibiotics as per infectious diseases. The patient remained afebrile and with no evidence of infection during the rest of the patient's hospital course. The patient was noticed to be severely debilitated. Physical therapy evaluated the patient. Physical therapy recommended placement to a alf facility because of inability to take care of himself. Initially, it was reported that he is homeless. Therefore, social work was involved in the patient's care. Towards the end of the hospital stay, the patient verbalized that he is to live in a house with his girlfriend/fianc. This was confirmed by the nephrology social worker and his fiance/girlfriend was willing to take the patient back. Therefore, the patient will be discharged home with the [facility] for home safety and home PT evaluation. A front wheeled walker was given to the patient. The patient is stable to be discharged home. Discharge Instructions 1. Take medications as per prescription. 2. Carbohydrate controlled diet. 3. Avoid alcohol. 4. Activities with assist and as tolerated. 5. Follow-up with the primary care physician 1 week. If you do not have a primary care physician, please call Dr. David Willis's office. The patient verbalized understanding of his discharge instructions. Case was discussed with Dr. Guzmán. Home Meds Active Scripts [Lactulose] 20 GM/30 ML SOLN No Conflict Check, 20 GM PO Q8 for 30 Days Prov:SARTHAK BOGGS NP 02/15/17 Linagliptin (TRADJENTA) 5 Mg Tablet, 5 MG PO DAILY for 30 Days, TAB Prov:SARTHAK BOGGS MARINE ENGINE DRIVER 02/15/17 Reported Medications Cholecalciferol* (Vitamin D3*) 1,000 Unit Tablet, 2000 UNIT PO DAILY, TAB 01/31/17 Metformin Hcl* (Metformin Hcl*) 1,000 Mg Tablet, 1000 MG PO WITH BREAKFAST DINNE , #30 TAB 01/31/17 Omeprazole* (Omeprazole*) 20 Mg Capsule.dr, 20 MG PO DAILY, #30 CAP 01/31/17 Furosemide* (Furosemide*) 40 Mg Tablet, 40 MG PO DAILY, TAB 01/31/17 Spironolactone* (Aldactone*) 100 Mg Tablet, 100 MG PO DAILY, #30 TAB 01/31/17 Folic Acid* (Folic Acid*) 1 Mg Tablet, 1 MG PO DAILY, TAB 01/31/17 Ferrous Sulfate* (Ferrous Sulfate*) 325 Mg Tabec, 325 MG PO DAILY, TAB 01/31/17 Thiamine* (Vitamin B-1*) 100 Mg Tablet, 100 MG PO DAILY, TAB 01/31/17 Insulin Glargine* (Lantus*) 100 Unit/Ml Soln, 0 SC QHS, #1 VIAL SLIDING SCALE NO SCALE GIVEN 01/31/17 Follow-up Plan Follow-up with your primary care physician in 1 week and if you do not have a primary care physician, please call Dr. David Willis's office. Primary Care Provider [facility] Time spent on discharge: > 30 minutes Pending Labs Laboratory Tests Test 02/15/17 11:42 02/15/17 17:17 02/15/17 22:04 02/16/17 02:18 Bedside Glucose 279mg/dL (70-220) 161mg/dL (70-220) 250mg/dL (70-220) 180mg/dL (70-220) Test 02/16/17 07:54 Bedside Glucose 186mg/dL (70-220) SARTHAK BOGGS NP Feb 16, 2017 11:11
--- NOTE | 2017-02-20 11:10 | RADRPT ---
Vent Rate: 116 bpm RR Interval: 0 msec TX Interval: 158 msec QRS Duration: 84 msec QT Interval: 334 msec QTC Interval: 464 msec P-R-T Plato: 47 - 131 - 14 degrees Sinus tachycardia Right axis deviation Possible Right ventricular hypertrophy Abnormal ECG Electronically Signed By: Pilo Gil [id number]
== END 2017-02-16 11:03 | disposition home health service (06) | DRG 872 ==
LOC: E/R 10:05 → MS2 13:39 → PP2 02-15 06:17
PROVIDERS: ADMIT Family Medicine; ATTEND Family Medicine
PROC: 0W9G3ZX Drainage of Peritoneal Cavity, Percutaneous Approach, Diagnostic (ICD-10-PCS; principal; 2017-02-01)
DX: A41.9 Sepsis, unspecified organism (principal); N17.9 Acute kidney failure, unspecified; D61.818 Other pancytopenia; E87.2 Acidosis; E72.20 Disorder of urea cycle metabolism, unspecified; E11.65 Type 2 diabetes mellitus with hyperglycemia; F10.129 Alcohol abuse with intoxication, unspecified; N43.3 Hydrocele, unspecified; K40.90 Unilateral inguinal hernia, without obstruction or gangrene, not specified as recurrent; K70.31 Alcoholic cirrhosis of liver with ascites
CPT/HCPCS: 36415; 71010; 74176; 80048; 80053; 80061; 80306; 81001; 82042; 82140; 82652; 82728; 82962; 83036; 83540; 83605; 83735; 84100; 84484; 85025; 85610; 85730; 87040; 87070; 87086; 87102; 87116; 89050; 93005; 96374; 96375; 97116; 97162; 97530; J1650; J1815; J1940; J2060; J2270; J2405; J2543; J3370; J3411; J3475; J7030; J7050; J7120; P9047

== ENCOUNTER 2017-03-08 11:05 | Emergency (ER) | payer OTHER ==
[~2017-03-08 11:05] MED LIST changes: +CHOL100062 PO; +FER325 PO; +FOLI-49 PO; +FURO40TA4 PO; +LANT3I SC; +LINA5TAB PO; +Lactulose PO; -MAG355OR15 PO; +METF1000 PO; +OMEP20CA16 PO; -ONDA4TAB35 PO; +SPIR100T PO; +THIA100T56 PO
[2017-03-08] MEDS ORDERED: SOD CHLORIDE 0.9% 1,000 ML IV STA (11:18)
[2017-03-08] MEDS ORDERED: ONDANSETRON 4 MG INJ IV STA (11:18)
[2017-03-08] MEDS ORDERED: KETOROLAC 15 MG INJ IV STA (11:18)
[2017-03-08 11:45] LABS: ABNORMAL IP MESSAGE 1; BASOPHILS % 0.6 % (0.0-2.0); EOSINOPHILS # 0.1 10^3/ul (0.0-0.5); EOSINOPHILS % 0.9 % (0.0-7.0); HEMATOCRIT 32.6 % (42.0-52.0); HEMOGLOBIN 10.7 g/dl (14.0-18.0); LYMPHOCYTES # 1.2 10^3/ul (0.8-2.9); LYMPHOCYTES % 18.5 % (15.0-51.0); MEAN CORPUSCULAR HEMOGLOBIN 27.7 pg (29.0-33.0); MEAN CORPUSCULAR HGB CONC 32.8 g/dl (32.0-37.0); MEAN CORPUSCULAR VOLUME 84.5 fl (82.0-101.0); MEAN PLATELET VOLUME 10.7 fl (7.4-10.4); MONOCYTE # 0.4 10^3/ul (0.3-0.9); MONOCYTES % 6.2 % (0.0-11.0); NEUTROPHIL # 4.7 10^3/ul (1.6-7.5); NEUTROPHILS % 73.3 % (39.0-77.0); PLATELET COUNT 65 10^3/UL (140-415); POSITIVE DIFF @See below; RED BLOOD COUNT 3.86 10^6/ul (4.70-6.10); RED CELL DISTRIBUTION WIDTH 19.1 % (11.5-14.5); WHITE BLOOD COUNT 6.3 10^3/ul (4.8-10.8)
[2017-03-08 12:07] LABS: ALANINE AMINOTRANSFERASE 59 IU/L (13-69); ALBUMIN 3.2 g/dl (3.3-4.9); ALBUMIN/GLOBULIN RATIO 0.78; ALKALINE PHOSPHATASE 361 IU/L (42-121); ANION GAP 23 (8-16); ASPARTATE AMINO TRANSFERASE 76 IU/L (15-46); BILIRUBIN,INDIRECT 0.7 mg/dl (0-1.1); BILIRUBIN,TOTAL 0.7 mg/dl (0.2-1.3); BLOOD UREA NITROGEN 7 mg/dl (7-20); CALCIUM 8.5 mg/dl (8.4-10.2); CARBON DIOXIDE 20 mmol/L (21-31); CHLORIDE 104 mmol/L (97-110); CREATININE 0.46 mg/dl (0.61-1.24); GLUCOSE 341 mg/dl (70-220); POTASSIUM 4.3 mmol/L (3.5-5.1); SODIUM 143 mmol/L (135-144); TOTAL PROTEIN 7.3 g/dl (6.1-8.1)
--- NOTE | 2017-03-08 12:13 | RADRPT ---
PROCEDURE: Chest x-ray CLINICAL INDICATION: Abdominal pain TECHNIQUE: Chest single view COMPARISON: 01/31/2017 FINDINGS: There is stable mild cardiomegaly. The pulmonary vessels are normal in caliber. There is interval improvement of right basilar atelectasis. Lungs otherwise clear.. The costophrenic angles are skylar p. The visualized bony thorax is unremarkable. IMPRESSION: No acute cardiopulmonary disease. Stable mild cardiomegaly RPTAT: HH .Clyde Cristina MD, Date Time Electronically viewed and signed by .Clyde Cristina MD, on 03/08/2017 12:13 .W/
[2017-03-08 12:44] LABS: TROPONIN-I < 0.012 ng/ml (0.00-0.12)
[2017-03-08] MEDS ORDERED: IBUP-1542 PO (13:06)
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
[2017-03-08 13:25] VITALS: BP 116/74; PULSE 68; RESP 20
== END 2017-03-08 13:25 | disposition home or self-care (01) ==
LOC: E/R 11:05
DX: F10.120 Alcohol abuse with intoxication, uncomplicated (principal); E86.0 Dehydration; G89.18 Other acute postprocedural pain; I10 Essential (primary) hypertension; E11.9 Type 2 diabetes mellitus without complications; Z79.4 Long term (current) use of insulin; Z79.84 Long term (current) use of oral hypoglycemic drugs
CPT/HCPCS: 71010; 80053; 83690; 84484; 85025; J1885; J2405; J7030; 36415; 93005; 96374; 96375

== ENCOUNTER 2017-09-25 15:11 | Inpatient (IN) | END 2017-09-28 08:05 | disposition left against medical advice (07) | DRG 433 ==

== ENCOUNTER 2017-10-03 14:21 | Emergency (ER) | END 2017-10-03 21:46 | disposition home or self-care (01) ==

== ENCOUNTER 2017-12-10 15:52 | Emergency (ER) | END 2017-12-10 20:13 | disposition home or self-care (01) ==

== ENCOUNTER 2018-02-09 17:03 | Emergency (ER) | END 2018-02-09 19:18 | disposition home or self-care (01) ==